=== PATIENT | female | born 1955 | race Caucasian/White ===

== ENCOUNTER 2025-01-06 09:07 | Outpatient (AMB) | payer BC, MEDICARE, MEDICAID, SELFPAY ==
--- OUTSIDE RECORDS SUMMARY | 2024-12-31 23:59 | XMS_ITS | Continuity of Care Document ---
Author Organization [facility] Address [address] [place] [address]- Support Name Relationship Address Phone COURTNEY, SUNDAY Personal Relationship Unknown Un available COURTNEY, SUNDAY Personal Relationship Unknown Un available COURTNEY, SUNDAY Personal Relationship Unknown Un available COURTNEY, SUNDAY Personal Relationship Unknown Un available COURTNEY, SUNDAY Personal Relationship Unknown Un available COURTNEY, SUNDAY Personal Relationship Unknown Un available COURTNEY, SUNDAY Personal Relationship Unknown Un available COURTNEY, SUNDAY Personal Relationship Unknown Un available COURTNEY, SUNDAY Personal Relationship Unknown Un available COURTNEY, SUNDAY Personal Relationship Unknown Un available COURTNEY, SUNDAY Personal Relationship Unknown Un available COURTNEY, SUNDAY Personal Relationship Unknown Un available COURTNEY, SUNDAY Personal Relationship Unknown Un available COURTNEY, SUNDAY Personal Relationship Unknown Un available COURTNEY, SUNDAY Personal Relationship Unknown Un available COURTNEY, SUNDAY Personal Relationship Unknown Un available COURTNEY, SUNDAY Personal Relationship Unknown Un available COURTNEY, SUNDAY Personal Relationship Unknown Un available COURTNEY, SUNDAY Personal Relationship Unknown Un available COURTNEY, SUNDAY Personal Relationship Unknown Un available COURTNEY, SUNDAY Personal Relationship Unknown Un available COURTNEY, SUNDAY Personal Relationship Unknown Un available COURTNEY, SUNDAY Personal Relationship Unknown Un available COURTNEY, SUNADY Personal Relationship Unknown Un available COURTNEY, SUNDAY Personal Relationship Unknown Un available COURTNEY, SUDNAY Personal Relationship Unknown Un available COURTNEY, SUNDAY Personal Relationship Unknown Un available COURTNEY, SUNDAY Personal Relationship Unknown Un available COURTNEY, SUNDAY Personal Relationship Unknown Un available COURTNEY, SUNDAY Personal Relationship Unknown Un available COURTNEY, SUNDAY Personal Relationship Unknown Un available COURTNEY, SUNDAY Personal Relationship Unknown Un available COURTNEY, AMANDA child Unknown Unavailabl e COURTNEY, SUNDAY Personal Relationship Unknown Un available COURTNEY, SUNDAY Personal Relationship Unknown Un available COURTNEY, SUNDAY Personal Relationship Unknown Un available COURTNEY, SUNDAY Personal Relationship Unknown Un available COURTNEY, SUNDAY Personal Relationship Unknown Un available COURTNEY, SUNDAY Personal Relationship Unknown Un available COURTNEY, SUNDAY Personal Relationship Unknown Un available COURTNEY, SUNDAY Personal Relationship Unknown Un available COURTNEY, SUNDAY Personal Relationship Unknown Un available COURTNEY, SUNDAY Personal Relationship Unknown Un available COURTNEY, SUNDAY Personal Relationship Unknown Un available COURTNEY, SUNDAY P Personal Relationship Unknown Unavailable COURTNEY, SUNDAY Personal Relationship Unknown Un available COURTNEY, SUNDAY Personal Relationship Unknown Un available COURTNEY, HALLIE child Unknown Unavailable COURTNEY, SUNDAY Personal Relationship Unknown Un available COURTNEY, SUNDAY Personal Relationship Unknown Un available COURTNEY, SUNDAY Personal Relationship Unknown Un available COURTNEY, SUNDAY Personal Relationship Unknown Un available COURTNEY, SUNDAY Personal Relationship Unknown Un available COURTNEY, SUNDAY Personal Relationship Unknown Un available COURTNEY, SUNDAY Personal Relationship Unknown Un available COURTNEY, SUNDAY Personal Relationship Unknown Un available COURTNEY, SUNDAY Personal Relationship Unknown Un available COURTNEY, SUNDAY Personal Relationship Unknown Un available COURTNEY, SUNDAY Personal Relationship Unknown Un available COURTNEY, SUNDAY Personal Relationship Unknown Un available COURTNEY, SUNDAY Personal Relationship Unknown Un available COURTNEY, SUNDAY Personal Relationship Unknown Un available COURTNEY, SUNDAY Personal Relationship Unknown Un available COURTNEY, SUNDAY Personal Relationship Unknown Un available COURTNEY, SUNDAY Personal Relationship Unknown Un available COURTNEY, SUNDAY Personal Relationship Unknown Un available COURTNEY, SUNDAY Personal Relationship Unknown Un available COURTNEY, SUNDAY Personal Relationship Unknown Un available COUTRNEY, SUNDAY Personal Relationship Unknown Un available COURTNEY, SUNDAY Personal Relationship Unknown Un available COURTNEY, SUNDAY Personal Relationship Unknown Un available PATIENT, STATES NONE Other Unknown Unavail able COURTNEY, SUNDAY Personal Relationship Unknown Un available PT STATES, NOONE Other Unknown Unavailable COURTNEY, SUNDAY Personal Relationship Unknown Un available COURTNEY, SUNDAY Personal Relationship Unknown Un available COURTNEY, SUNDAY Personal Relationship Unknown Un available COURTNEY, SUNDAY Personal Relationship Unknown Un available COURTNEY, SUNDAY Personal Relationship Unknown Un available COURTNEY, SUNDAY Personal Relationship Unknown Un available COURTNEY, SUNDAY spouse Unknown Unavailable COURTNEY, SUNDAY Personal Relationship Unknown Un available COURTNEY, SUNDAY Personal Relationship Unknown Un available COURTNEY, SUNDAY Personal Relationship Unknown Un available COURTNEY, SUNDAY Personal Relationship Unknown Un available COURTNEY, SUNDAY Personal Relationship Unknown Un available PT STATES, NONE Other Unknown Unavailable COURTNEY, SUNDAY Personal Relationship Unknown Un available COURTNEY, SUNDAY Personal Relationship Unknown Un available COURTNEY, SUNDAY Personal Relationship Unknown Un available COURTNEY, SUNDAY Personal Relationship Unknown Un available COURTNEY, SUNDAY Personal Relationship Unknown Un available COURTNEY, SUNDAY Personal Relationship Unknown Un available Care Team Providers Care International Project Manager Name Role Phone Jun DURON, Li Monroy Primary Care Physician [place] [facility] [place] 12/01/24 - 12/31/[address] [address]- Encounter Type: Triage Allergies, Adverse Reactions, Alerts Substance Criticality Severity Reaction Reaction Severity Status Diflucan Active Other Environmental Allergy Unable to assess criticality Persistent Mild Active levofloxacin Active Immunizations Given and Recorded Vaccine Date Status Refusal Reason SARS-CoV-2(COVID-19)mRNA-LNP vac([id number]) 10/15/24 Recorded SARS-CoV-2(COVID-19)mRNA-LNP vac([id number]) 03/04/24 Recorded SARS-CoV-2(COVID-19)mRNA-LNP vac([id number]) 10/04/23 Recorded influenza virus vaccine, inactivated 03/04/24 Rogers rded influenza virus vaccine, inactivated 03/15/23 Rogers rded influenza virus vaccine, inactivated 03/08/22 Rogers rded influenza virus vaccine, inactivated 02/16/21 Rogers rded influenza virus vaccine, inactivated 02/24/20 Rogers rded influenza virus vaccine, inactivated 02/25/19 Rogers rded influenza virus vaccine, inactivated 04/16/18 Rogers rded influenza virus vaccine, inactivated 02/21/17 Rogers rded influenza virus vaccine, inactivated 02/21/16 Orgers rded influenza virus vaccine, inactivated 03/31/15 Rogers rded influenza virus vaccine, inactivated 05/10/14 Rogers rded influenza virus vaccine, inactivated 03/27/13 Rogers rded RSV vaccine, preF A-preF B, recombinant 03/23/23 R ecorded pneumococcal 20-valent conjugate vaccine 02/05/23 Recorded tetanus/diphtheria/pertussis, acel(Tdap) 01/19/23 Recorded tetanus/diphtheria/pertussis, acel(Tdap) 02/05/13 Recorded [id number] 12y+ bivalent booster vax 01/19/23 Recorded [id number] 12y+ bivalent booster vax 03/18/22 Recorded SARS-CoV-2 mRNA ([id number]) vax 12/20/21 Recorded SARS-CoV-2 (COVID-19) mRNA BNT-162b2 vac 03/31/21 Recorded SARS-CoV-2 (COVID-19) mRNA BNT-162b2 vac 10/01/20 Recorded SARS-CoV-2 (COVID-19) mRNA BNT-162b2 vac 09/08/20 Recorded zoster vaccine, inactivated 06/01/20 Recorded zoster vaccine, inactivated 03/09/20 Recorded hepatitis B adult vaccine 09/01/19 Recorded hepatitis B adult vaccine 04/06/19 Recorded hepatitis B adult vaccine 03/02/19 Recorded pneumococcal 23-valent vaccine 10/15/13 Recorded Human Papillomavirus Vaccine 04/07/07 Given Influenza Inactive (IM) (oldterm) 1 05/08/06 Given 1Admin Note: PASTEUR Medications amLODIPine 10 mg oral tablet 1 tablet, By Mouth, Daily, # 90 tablet, 1 Refills, Maintenance, 07/17/24 9:52:00 AM EST, [facility], 165, cm, 05/13/24 14:55:00 EST, Height, 55.1, kg, 07/15/23 17:35:00 EST, Dry Weight Start Date: 07/17/24 Status: Ordered Quantity: 90.0 Unit: tablet Repeat number: 1 aspirin 81 mg oral tablet 1 tablet = 81 mg, By Mouth, Daily, 0 Refills, Maintenance, 05/24/11 11:32:43 AM EST Start Date: 05/24/11 Status: Ordered Repeat number: 1 Basaglar KwikPen 100 units/mL subcutaneous solution Subcutaneous Infusion, Daily, 0 Refills, Maintenance, 04/13/24 1:02:00 PM EDT, Partial fill upon patient request if the prescription is for a schedule II opioid drug. Start Date: 04/13/24 Status: Ordered Repeat number: 1 busPIRone 5 mg oral tablet See Instructions, TAKE ONE TABLET BY MOUTH TWICE A DAY, # 60 tablet, Refills 5, Tot. Refills 5, Maintenance, 11/30/24 2:30:00 PM EDT, Instructions Replace Required Details, Route to Pharmacy Electronically, [id number], 165, cm, 11/30/24 13:54:00 EDT, Height, 55.1, kg, 07/15/23 17:35:00 EST, Dry Weight Start Date: 11/30/24 Status: Ordered Quantity: 60.0 Unit: tablet Repeat number: 6 Cetirizine = 10 mg, Daily, 0 Refills, Maintenance, 08/01/22 11:22:00 AM EST, Partial fill upon patient request if the prescription is for a schedule II opioid drug. Start Date: 08/01/22 Status: Ordered Repeat number: 1 cilostazol 100 mg oral tablet 1 tablet = 100 mg, By Mouth, 2 times a day, 0 Refills, Maintenance, 05/06/23 1:20:00 PM EST, Partial fill upon patient request if the prescription is for a schedule II opioid drug. Start Date: 05/06/23 Status: Ordered Repeat number: 1 Ferrous Gluconate = 324 mg, By Mouth, 2 times a day, 0 Refills, Maintenance, 08/01/22 11:19:00 AM EST, Partial fill upon patient request if the prescription is for a schedule II opioid drug. Start Date: 08/01/22 Status: Ordered Repeat number: 1 Gvoke HypoPen 1 mg/0.2 mL subcutaneous solution = 1 mg, Subcutaneous Infusion, Once, 0 Refills, Maintenance, 05/06/23 1:21:00 PM EST, Partial fill upon patient request if the prescription is for a schedule II opioid drug. Start Date: 05/06/23 Status: Ordered Repeat number: 1 hydrOXYzine hydrochloride 25 mg oral tablet See Instructions, TAKE ONE TABLET BY MOUTH THREE TIMES A DAY, # 90 tablet, 1 Refills, Maintenance, 12/15/24 3:42:00 PM EDT, [facility], 165, cm, 11/30/24 13:54:00 EDT, Height, 55.1,kg, 07/15/23 17:35:00 EST, Dry Weight Start Date: 12/15/24 Status: Ordered Quantity: 90.0 Unit: tablet Repeat number: 1 hydrOXYzine hydrochloride 25 mg oral tablet 1 tablet, By Mouth, 3 times a day, # 90 tablet, 1 Refills, Maintenance, 09/21/24 1:26:00 PM EDT, [facility], 165, cm, 09/02/24 11:28:00 EDT, Height, 55.1, kg, 07/15/23 17:35:00 EST,Dry Weight Start Date: 09/21/24 Status: Ordered Quantity: 90.0 Unit: tablet Repeat number: 1 Lantus 100 u/ml subcutaneous solution 11 units, Subcutaneous Injection, Daily at bedtime, # 15 mL, 3 Refills, dispence 8 bottles Start Date: 01/07/08 Status: Ordered Quantity: 15.0 Unit: mL Repeat number: 4 Leflunomide By Mouth, Daily, 0 Refills, Maintenance, 12/06/20 11:39:00 AM EDT, Partial fill upon patient requestif the prescription is for a schedule II opioid drug. Start Date: 12/06/20 Status: Ordered Repeat number: 1 Lomotil 0.025 mg-2.5 mg oral tablet 2, tablet, By Mouth, 4 times a day, Refills 0, Maintenance, 05/06/23 1:20:00 PM EST, Partial fill upon patient request if the prescription is for a schedule II opioid drug. Start Date: 05/06/23 Status: Ordered Repeat number: 1 LORazepam 0.5 mg oral tablet See Instructions, TAKE ONE TABLET BY MOUTH EVERY 8 HOURS NEEDED FOR ANXIETY, # 60 tablet, 0 Refills, Maintenance, 12/14/24 4:21:00 PM EDT, [facility], 165, cm, 11/30/24 13:54:00 EDT, Height, 55.1, kg, 07/15/23 17:35:00 EST, Dry Weight Start Date: 12/14/24 Stop Date: 01/13/25 Status: Ordered Quantity: 60.0 Unit: tablet Repeat number: 1 LORazepam 0.5 mg oral tablet See Instructions, TAKE ONE TABLET BY MOUTH EVERY 8 HOURS NEEDED FOR ANXIETY, # 60 tablet, 0 Refills, Maintenance, 11/20/24 4:27:00 PM EDT, [facility], 165, cm, 10/19/24 13:10:00 EDT, Height, 55.1, kg, 07/15/23 17:35:00 EST, Dry Weight Start Date: 11/20/24 Stop Date: 12/21/24 Status: Ordered Quantity: 60.0 Unit: tablet Repeat number: 1 Metformin = 1,000 mg, By Mouth, 2 times a day, 0 Refills, Maintenance, 07/29/12 9:58:03 AM EST Start Date: 07/29/12 Status: Ordered Repeat number: 1 metoprolol 50 mg oral tablet 50 mg, 1, tablet, By Mouth, 2 times a day, Refills 0, Maintenance, 05/06/23 1:22:00 PM EST, Partialfill upon patient request if the prescription is for a schedule II opioid drug. Start Date: 05/06/23 Status: Ordered Repeat number: 1 montelukast 10 mg oral tablet 1, tablet, By Mouth, Daily in PM, # 90 tablet, Refills 1, Maintenance, 12/07/24 1:43:00 PM EDT, Route to Pharmacy Electronically, [id number], 165, cm, 11/30/24 13:54:00 EDT, Height,55.1, kg, 07/15/23 17:35:00 EST, Dry Weight Start Date: 12/07/24 Status: Ordered Quantity: 90.0 Unit: tablet Repeat number: 1 NovoLOG FlexPen 100 units/mL subcutaneous solution Subcutaneous Infusion, 3 times a day before meals, 0 Refills, Maintenance, 05/06/23 1:22:00 PM EST,Partial fill upon patient request if the prescription is for a schedule II opioid drug. Start Date: 05/06/23 Status: Ordered Repeat number: 1 One A Day Women's Complete By Mouth, Daily, 0 Refills, Maintenance, 01/31/24 8:18:00 AM EDT, Partial fill upon patient request if the prescription is for a schedule II opioid drug. Start Date: 01/31/24 Status: Ordered Repeat number: 1 Oxybutynin = 5 mg, By Mouth, Daily, 0 Refills, Maintenance, 05/06/23 1:22:00 PM EST, Partial fill upon patientrequest if the prescription is for a schedule II opioid drug. Start Date: 05/06/23 Status: Ordered Repeat number: 1 pantoprazole 40 mg oral delayed release tablet 1/2 tablet, 0 Refills, Maintenance, 12/06/20 11:41:00 AM EDT Start Date: 12/06/20 Status: Ordered Repeat number: 1 prazosin 1 mg oral capsule 1, capsule, By Mouth, 2 times a day, # 60 capsule, Refills 1, Maintenance, 11/23/24 6:09:00 AM EDT, Route to Pharmacy Electronically, [facility], 165, cm, 10/19/24 13:10:00 EDT, Height, 55.1, kg, 07/15/23 17:35:00 EST, Dry Weight Start Date: 11/23/24 Status: Ordered Quantity: 60.0 Unit: capsule Repeat number: 1 primidone 50 mg oral tablet See Instructions, 3 tablet By Mouth am & bedtime, and 100mg (2 tabs) in the afternoon. Total dosing 150mg/100mg/150mg, # 240 tablet, Refills 11, Tot. Refills 11, Maintenance, 02/07/24 3:30:00 PM EDT, Instructions Replace Required Details, Route to Pharmacy Electronically, [facility], 163, cm, 01/31/24 8:12:00 EDT, Height, 55.1, kg, 07/15/23 17:35:00 EST, Dry Weight Start Date: 02/07/24 Status: Ordered Quantity: 240.0 Unit: tablet Repeat number: 12 rosuvastatin 40 mg oral tablet 1 tablet, By Mouth, Daily, # 90 tablet, 1 Refills, Maintenance, 10/05/24 10:33:00 AM EDT, [facility], 165, cm, 09/02/24 11:28:00 EDT, Height, 55.1, kg, 07/15/23 17:35:00 EST, Dry Weight Start Date: 10/05/24 Status: Ordered Quantity: 90.0 Unit: tablet Repeat number: 1 traZODone 100 mg oral tablet 100 mg, 1, tablet, By Mouth, Daily at bedtime, # 90 tablet, Refills 1, Tot. Refills 1, Maintenance,12/15/24 12:47:00 PM EDT, Route to Pharmacy Electronically, [id number], Partial fill upon patient request if the prescription is for a schedule II opioid drug., 165, cm, 11/30/24 13:54:00 EDT, Height, 55.1, kg, 07/15/23 17:35:00 EST, Dry Weight Start Date: 12/15/24 Status: Ordered Quantity: 90.0 Unit: tablet Repeat number: 2 Trelegy Ellipta 200 mcg-62.5 mcg-25 mcg/inh inhalation powder 1 inhalation, Inhalation, Daily, at the same time every day, # 1 each, 6 Refills, Maintenance, 11/20/24 1:00:00 PM EDT, Powder, [facility], Partial fill upon patient request if the prescription is for a schedule II opioid drug., 1 inhalation Inhalation Daily,Instr:at the same timeevery day, 165, cm, 10/19/24 13:10:00 EDT, Height, 55.1, kg, 07/15/23 17:35:00 EST, Dry Weight Start Date: 11/20/24 Status: Ordered Quantity: 1.0 Unit: each Repeat number: 7 varenicline 1mg tablet 1 tablet, By Mouth, 2 times a day, # 56 tablet, 0 Refills, Maintenance, 12/31/24 11:18:00 AM EDT, [facility], 165, cm, 11/30/24 13:54:00 EDT, Height, 55.1, kg, 07/15/23 17:35:00 EST, Dry Weight Start Date: 12/31/24 Status: Ordered Quantity: 56.0 Unit: tablet Repeat number: 1 Vitamin B12 500 mcg oral tablet 1 tablet = 500 mcg, By Mouth, Daily, # 30 tablet, 6 Refills, Maintenance, 10/13/14 1:58:32 PM EDT, [facility] #[id number] Start Date: 10/13/14 Stop Date: 05/11/15 Status: Ordered Quantity: 30.0 Unit: tablet Repeat number: 7 Zetia 10 mg oral tablet 1 tablet = 10 mg, By Mouth, Daily, 0 Refills, Maintenance, 05/06/23 1:21:00 PM EST, Partial fill upon patient request if the prescription is for a schedule II opioid drug. Start Date: 05/06/23 Status: Ordered Repeat number: 1 Problem List Condition Confirmation Course Effective Dates Status H ealth Status Informant Aortic stenosis Confirmed Active Asthma - persistent Confirmed Active COPD with asthma Confirmed Active CAD (coronary artery disease) Confirmed Active Degeneration of lumbar intervertebral disc Confirmed Active History of diabetic ketoacidosis Confirmed Active History of benign carcinoid tumor Confirmed Active S/P insertion of iliac artery stent Confirmed Active History of pancreatitis Confirmed Active HLD (hyperlipidemia) Confirmed Active HTN (hypertension) Confirmed Active Memory changes Confirmed Active Major depressive disorder, recurrent episode, moderate Confirmed Active Obese class I Confirmed Active PAD (peripheral artery disease) Confirmed Active Post-traumatic stress disorder Confirmed Active PTSD (post-traumatic stress disorder) Confirmed Active Sleep apnea-possible Confirmed Active Smoking Confirmed Active Tobacco use Confirmed Active Mixed action and resting tremor Confirmed Active Type 2 diabetes mellitus with insulin therapy Confirmed Active Social History Social History Type Response Tobacco Use: 4 or less cigar ettes(less than 1/4 pack)/day in last 30 days. Other: Occasional cigarette about qod. Sex Sex Representation Female (finding) Patient Care team information Care Team Personnel Name: Li Barahona MD Position: [facility] Physician - Primary Care Member Role: PCP Address: [address] [place] [address] Telecom: Name: Jose Rojas MD Position: [facility] Cardiology MD Member Role: Lifetime Consulting Physician Address: [address] [place] [address] Telecom: Care Team Related Persons Name: AMANDA VALDEZ Name: SUNDAY VALDEZ Name: HALLIE VALDEZ Name: STATES, NONE Insurance Providers Guarantor name: ELIS VALDEZ Health Plan Information #: 1 Payer: [employer] PPO Payer Identifier: NA Member Number: [id number] Group Number: [id number] Subscriber Identifier: [id number] Relationship to Subscriber: spouse Coverage Type: NA Coverage Verification Date: NA Telecom: NA Address: Health Plan Information #: 2 Payer: MEDICARE B Payer Identifier: NA Member Number: [id number] Group Number: [id number] Subscriber Identifier: [id number] Relationship to Subscriber: self Coverage Type: NA Coverage Verification Date: KODY Telecom: NA Address: Health Plan Information #: 3 Payer: [employer] Payer Identifier: KODY Member Number: [id number] Group Number: [id number] Subscriber Identifier: [id number] Relationship to Subscriber: self Coverage Type: MEDICAID Coverage Verification Date: KODY Telecom: NA Address: NA
--- NOTE | 2025-01-06 09:14 | A.OFFVIS_ITS ---
Intake Visit Reasons: Mucinous appendiceal neoplasms Intake Note: Pt states, Dr. Orr referred me because an MRI showed tumors in my appendix. c/o left hip pain and right lower quadrant pain when she lays on that side. Oncology Rep Specialist Required: No Allergies levofloxacin (From Levaquin) Allergy (Mild, Verified 01/06/25 09:20) hypoglycemic fluconazole (From Diflucan) Allergy (Unknown, Verified 01/06/25 09:20) Unknown Medication List - Last Reviewed 01/06/25 by VÍCTOR Bustillo alprazolam 1 mg PO DAILY aspirin 81 mg PO DAILY cetirizine 10 mg PO DAILY cilostazol 100 mg PO BID diphenoxylate-atropine 2.5-0.025 mg 1 tab PO QID PRN ezetimibe 10 mg PO DAILY fluticasone furoate-vilanterol 50-25 mcg/dose (Breo Ellipta) inhalation gabapentin 300 mg PO TID hydrochlorothiazide 12.5 mg PO DAILY hydroxyzine HCl 50 mg PO BEDTIME leflunomide 20 mg PO DAILY lorazepam 0.5 mg PO Q8H PRN metoprolol succinate ER 50 mg PO DAILY montelukast 10 mg PO BEDTIME oxybutynin chloride 5 mg PO DAILY oxybutynin chloride ER 10 mg PO DAILY pantoprazole 40 mg PO DAILY primidone 50 mg PO BEDTIME primidone 50 mg PO BEDTIME rosuvastatin 40 mg PO DAILY trazodone 100 mg PO BEDTIME PRN umeclidinium 62.5 mcg/actuation (Incruse Ellipta) 1 inh inhalation DAILY HPI Comments Details: 69-year-old female patient presenting with a 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 The finding was incidentally noted during workup of back and hip pain. She reports several falls including a fall while walking her dog as well as a recent fall off a ladder. She has not experienced significant abdominal pain, nausea or vomiting. She also complains of painful cyst in the groin area which have been treated in the past [facility]. She was scheduled to see a surgeon in [facility] but missed her appointment. She has a history of peripheral vascular disease and underwent several stents in the right leg as well as balloon angioplasty. She presents today to discuss an urgent appendectomy to remove this mucinous appendiceal neoplasm. [facility] Medical History (Updated 01/06/25 @ 10:09 by Pal Boyle MD) Hypercholesteremia Diabetes Hypertension Carcinoid tumor of stomach Surgical History (Updated 01/06/25 @ 10:02 by Pal Boyle MD) History of bladder suspension procedure H/O neck surgery Hx of colonoscopy (07/31/18) Social History (Updated 01/06/25 @ 10:03 by Pal Boyle MD) Patient Tobacco Use Status: Current everyday Tobacco user Cigarettes Per Day: 15 Review of Systems Const All systems reviewed & are unremarkable except as noted in HPI and below Denies chills, Denies fever(s), Denies headache(s), Denies poor appetite and Denies weakness ENT Denies headache(s) Card Denies chest pain, Denies irregular heart rhythm, Denies palpitations and Denies dyspnea Resp Denies cough, Denies excessive phlegm production and Denies dyspnea GI Denies abdominal pain, Denies bloating, Denies change in bowel habits, Denies constipation, Denies heartburn, Denies diarrhea, Denies nausea and Denies vomiting Denies urinary frequency Musc Reports back pain, Denies muscle weakness and Denies numbness Skin/Breast Denies changing lesions and Denies unusual bruising Neuro Denies headache(s), Denies numbness, Denies paresthesias and Denies weakness Psych Denies anxiety and Denies depression Endo Denies palpitations Reji/Lymph Denies lymphadenopathy Physical Exam Const General: cooperative and no acute distress Nutritional Appearance: well nourished Orientation/consciousness: patient oriented x3 Limitations: no limitations HEENT Head: Yes normocephalic and Yes atraumatic Ears: hearing grossly normal bilaterally Resp Effort & Inspection: normal respiratory effort, no audible wheezes, Actively coughing and no respiratory distress Cardio Jugular venous distension: no JVD GI Inspection: Yes normal to inspection and No distended Palpation (GI): Soft to palpation, nontender, no guarding, not rigid and no masses Percussion: Yes normal to percussion Auscultation: normal bowel sounds Rectal Exam - Female: deferred Skin Other: Warm, dry, no rash Neuro General: patient oriented x3 Extrem General: Yes no clubbing, cyanosis or edema Results Reviewed Results Reviewed: MRI [facility] 12/20/2024: Assessment & Plan Assessment & Plan (1) Low grade mucinous neoplasm of appendix: Code(s): D37.3 - Neoplasm of uncertain behavior of appendix Category: Medical Plan 69-year-old female patient presenting with an incidentally noted mucinous appendiceal neoplasm noted on a pelvic MRI performed on 12/20/2024 in workup for back pain at [facility]. Patient has no significant abdominal symptoms at this time and examination reveals no tenderness or evidence of obstruction. I reviewed the findings in detail with the patient and the urgent need for appendectomy to prevent rupture of this mucinous neoplasm. I recommended a laparoscopic or possible open appendectomy as a short-stay surgery. After discussion of the procedure, risks, and alternatives, she consents to the laparoscopic or possible open appendectomy. 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 Coding Level of Care Code New Pt Level 4 (72483) Diagnoses Low grade mucinous neoplasm of appendix D37.3
--- OUTSIDE RECORDS SUMMARY | 2025-01-06 09:24 | XMS_ITS | Patient Health Record ---
Author Organization [facility] Address [address] [place] [address] Care Team Providers Care Bander And Cellophaner Machine Name Role Phone Li Barahona Primary Care Provider Rene Spivey Jr Unavailable [phone] Allergies Allergen (clinical drug ingredient) Drug/Non Drug Allergy documented on EMR Reaction Allergy Type Onset Date Status Levaquin HYPOGLYCEMIC Drug Allergy Acti ve fluconazole Diflucan Unknown Drug Allergy Activ e Reason For Referral No Information Medications Medication SIG (Take, Route, Frequency, Duration) Notes Start Date End Date Status Diphenoxylate-Atropine 2.5-0.025 MG TAKE ONE TABLET BY MOUTH FOUR TIMES A DAY NEEDED FOR DIARRHEA for 30 07/16/2024 Active traZODone HCl 100 MG 3 tablet at bedtime Orally 2 times a day Active Ezetimibe 10 MG 1 tablet Orally Once a day Active Pantoprazole Sodium 20 MG TAKE ONE TABLE T BY MOUTH TWICE A DAY for 30 Active ALPRAZolam 0.25 MG Oral for 28 Active Primidone 50 MG Oral for 90 Ac tive amLODIPine Besylate 10 MG 1 tablet Orall y Once a day for 30 day(s) Active Incruse Ellipta 62.5 MCG/ACT INHALE ONE PUFF BY MOUTH EVERY DAY Inhalation for 90 Active hydrOXYzine HCl 50 MG/ML as directed Intramuscular every 6 hrs Active Prazosin HCl 1 MG 1 capsule at bedtime Orally Once a day for 30 day(s) Active Varenicline Tartrate 1 MG TAKE 1MG BY MO UTH TWO TIMES A DAY Oral for 90 Active Chantix 0.5 MG 1 tablet after eatin g with a full glass of water Orally Once a day for 30 day(s) Active Cilostazol 100 MG 1 tablet 30 minutes before or 2 hours after breakfast and dinner Orally Twice a day for 30 day(s) Active Metoprolol Succinate 50 MG as directed Orally Active Metoprolol Succinate ER 50 MG TAKE ONE T ABLET BY MOUTH EVERY DAY Oral for 90 Active Pantoprazole Sodium 40 MG TAKE ONE TABLE T BY MOUTH EVERY DAY for 30 Active metFORMIN HCl 500 MG TAKE ONE TABLET BY MOUTH TWICE A DAY Oral for 90 Active NovoLOG FlexPen 100 UNIT/ML Subcutaneous for 55 Active oxyBUTYnin Chloride 10 MG as directed Orally Active oxyBUTYnin Chloride ER 10 MG TAKE 1 TABL ET BY MOUTH ONCE DAILY Oral for 90 Active Cetirizine HCl 10 MG 1 tablet Orally Onc e a day for 30 day(s) Active hydroCHLOROthiazide 25 MG Oral for 90 Active Losartan Potassium 50 MG 1 tablet Orally Once a day Active Basaglar KwikPen 100 UNIT/ML as directed Subcutaneous Active Combivent Respimat 20-100 MCG/ACT INHALE 1 PUFF BY MOUTH FOUR TIMES A DAY NEEDED Inhalation for 90 Active Rosuvastatin Calcium 40 MG 1 tablet Oral ly Once a day Active Leflunomide 20 MG 1 tablet Orally Once a day Active Vitamin D2 50 MCG (2000 UT) 1 tablet Ora lly One weekly Active Aspir-81 81 MG 1 tablet Orally Once a day Active Montelukast Sodium 10 MG 1 tablet Orally Once a day Active Ferrous Gluconate 324 (38 Fe ) MG 1 tablet with water or juice between meals Orally twice a day Active Immunizations Vaccine Route Administration Date Status Comme nts Influenza Unknown 04/17/2018 Administered Influenza Unknown 03/24/2019 Administered Influenza Unknown 03/02/2020 Administered Influenza Unknown 03/22/2021 Administered Influenza Unknown 05/15/2022 Administered Influenza Unknown 04/16/2023 Administered Social History Tobacco Use: Social History Observation Description Date Details (start date - stop date) Current Smoker NA - NA Tobacco Use/Smoking Question Answer Notes Patient is a current smoker How often do you smoke cigarettes? every day How many cigarettes a day do you smoke? 11-20 How soon after you wake up do you smoke your fir st cigarette? 31-60 minutes Are you interested in quitting? Not ready to marion t Alcohol Screen Question Answer Notes Did you have a drink containing alcohol in the p ast year? 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 [address] [place] [phone] 03/03/2024 Rene Orr Jr [facility] [address] [place] [phone] 04/03/2024 Rene Orr Jr [facility] [address] [place] [phone] 04/09/2024 Rene Orr Jr [facility] [address] [place] [phone] 12/31/2024 Rene Orr Jr Plan Of Treatment Pending Test Test Name Order Date LIVER PROFILE 10/07/2018 LIPASE 10/07/2018 CBC w DIFF 10/07/2018 CLOSTRIDIUM DIFF TOXIN A&B (C DIFF) 02/0 06/2015 STOOL WBC 06/12/2018 STOOL WBC 07/25/2015 CELIAC PANEL #10 10/07/2018 OVA & PARASITES (O&P) 06/12/2018 OVA & PARASITES (O&P) 07/25/2015 CULTURE, STOOL 06/12/2018 CULTURE, STOOL 07/25/2015 TSH REFLEX FREE T4 10/07/2018 Future Test Test Name Order Date COLONOSCOPY 03/06/2018 Insurance Providers Payer Name Payer Address Payer Phone Subscriber Number Group Number Insured Name Patient Relationship to Insured Coverage Start Date Coverage End Date [facility] [address] [place], [place] [phone] [id number] ELIS VALDEZ Self - patient is the insured MEDICARE OF [place] [address] [place] [address] [id number] YUSEF VALDEZHLEEN Self - patient is the insured MEDICAID OF [facility] [address] [place] [address] [phone] [id number] ELIS VALDEZ Self - patient is the insured Medical (General) History Medical History History ICD Code carcinoid tumor of the stomach diabetes mellitus elevated blood pressure GERD insomnia back problems COPD tremors EGD/colonoscopy, 07/31/18, [facility], endoscopy and biopsies fairly unremarkable. Repeat colonoscopy 10 years. depression hyperlipidemia Peripheral arterial disease ulcerative colitis Surgical History Surgery Date(Month/Year) Neck surgery Bladder suspension Multiple stent placements, lower extremi ties Hospitalization History Reason Date(Month/Year) hospitalization for ulcerative colitis
--- OUTSIDE RECORDS SUMMARY | 2025-01-06 09:24 | XMS_ITS | Encounter Summary ---
Author Organization [facility] Address [address] [place] [address] Care Team Providers Care Land Leveler Name Role Phone Unavailable Primary Care Provider Unavailabl e Encounter Details Date Type Department Care Team (Late st Contact Info) Description 07/10/2023 Abstract Jef [facility] [address] [place] [address] Slim Marr Jr., DMD [address] [place] [address] Social History Tobacco Use Types Packs/Day Years Used Date Smoking Tobacco: Never Assessed Comments Unknown Sex and Gender Information Value Date Recorded Sex Assigned at Not on file Legal Sex Female 5:35 PM EDT Gender Identity Not on file Sexual Orientation Not on file documented as of this encounter Plan of Treatment Not on file documented as of this encounter Visit Diagnoses Not on filedocumented in this encounter
== END 2025-01-06 09:51 | disposition home or self-care (01) ==
LOC: HO.HGS 09:08
PROVIDERS: PCP Family Medicine; Visit Provider Surgery
DX: D37.3 Neoplasm of uncertain behavior of appendix (principal)
CPT/HCPCS: 99204

== ENCOUNTER 2025-01-07 07:13 | Day surgery (SDC) | payer BC, MEDICARE, MEDICAID, SELFPAY ==
--- NOTE | 2025-01-06 14:07 | HO.ANESPROP2 ---
Documented by User: Toya Mason NP 01/06/25 14:13 HPI - Anesthesia Eval Consult details Narrative: 69yo Appendectomy Laparoscopic,possible open, BILATERL Excision Cyst X 2 on leg Case reviewed with LM and SG Follows [facility] for , Nonobstructive CAD - awaiting last office visit note Aortic stenosis: severe by area (0.8cm2), moderate by gradient Follows [facility] for COPD and TREY. Stable at 08/2024 office visit [facility] Active Problems Active Problems: All Active Problems Low grade mucinous neoplasm of appendix (Acute) History of bladder suspension procedure (Acute) Carcinoid tumor of stomach (Acute) History of abdominal surgery (Acute) Diabetes (Acute) Hypercholesteremia (Acute) Hypertension (Acute) Arthritis (Acute) COPD (chronic obstructive pulmonary disease) (Acute) Past Medical History Medical History CAD (coronary artery disease) Aortic stenosis Hypercholesteremia Diabetes Hypertension Carcinoid tumor of stomach Surgical History Surgical History History of bladder suspension procedure H/O neck surgery Hx of colonoscopy (07/31/18) Social History Social History Patient Tobacco Use Status: Current someday Tobacco user Tobacco use type: Cigarette Cigarettes Per Day: 10 Use of substances other than those prescribed or required for medical reasons: No Are you DNR?: No Advance Directives: No Advance Directives Information Provided: Yes Patient : No : No Poor oral hygiene: No Meds Allergies Allergy/AdvReac Type Severity Reaction Status Date / Time fluconazole (From Diflucan) Allergy Severe Rash Verified 01/07/25 08:10 levofloxacin (From Levaquin) Allergy Mild hypoglycemi Verified 01/06/25 09:20 c Home Medications ?Medication ?Instructions ?Recorded ?Confirmed ?Last Taken ?Type alprazolam 1 mg tablet 1 mg PO DAILY 01/06/25 Unknown History aspirin 81 mg tablet 81 mg PO DAILY 01/06/25 01/06/25 Unknown History cetirizine 10 mg tablet 10 mg PO DAILY 01/06/25 Unknown History cilostazol 100 mg tablet 100 mg PO BID 01/06/25 01/06/25 Unknown History diphenoxylate-atropine 2.5 1 tab PO QID PRN diarrhea 01/06/25 Unknown History mg-0.025 mg tablet ezetimibe 10 mg tablet 10 mg PO DAILY 01/06/25 Unknown History fluticasone furoate 50 inhalation 01/06/25 01/06/25 01/07/25 History mcg-vilanterol 25 mcg/dose inhalation powder (Breo Ellipta) gabapentin 300 mg capsule 300 mg PO TID 01/06/25 01/07/25 History hydrochlorothiazide 12.5 mg tablet 12.5 mg PO DAILY 01/06/25 01/06/25 Unknown History hydroxyzine HCl 50 mg tablet 50 mg PO BEDTIME 01/06/25 01/06/25 Unknown History leflunomide 20 mg tablet 20 mg PO DAILY 01/06/25 01/06/25 Unknown History lorazepam 0.5 mg tablet 0.5 mg PO Q8H PRN anxiety 01/06/25 Unknown History metoprolol succinate 50 mg 50 mg PO DAILY 01/06/25 01/06/25 01/07/25 History tablet,extended release 24 hr montelukast 10 mg tablet 10 mg PO BEDTIME 01/06/25 01/06/25 Unknown History oxybutynin chloride 10 mg 10 mg PO DAILY 01/06/25 Unknown History tablet,extended release 24 hr oxybutynin chloride 5 mg tablet 5 mg PO DAILY 01/06/25 01/06/25 Unknown History pantoprazole 40 mg tablet,delayed 40 mg PO DAILY 01/06/25 01/06/25 01/07/25 History release primidone 50 mg tablet 50 mg PO TID 01/06/25 01/06/25 01/07/25 History primidone 50 mg tablet 150 mg PO BEDTIME 01/06/25 01/06/25 Unknown History rosuvastatin 40 mg tablet 40 mg PO DAILY 01/06/25 01/06/25 Unknown History trazodone 100 mg tablet 100 mg PO BEDTIME PRN 01/06/25 01/06/25 Unknown History umeclidinium 62.5 mcg/actuation 1 inh inhalation DAILY 01/06/25 01/06/25 01/07/25 History blister powder for inhalation (Incruse Ellipta) amlodipine 10 mg tablet 10 mg PO DAILY 01/07/25 01/07/25 Unknown History fluticasone furoate 200 1 ea inhalation DAILY 01/07/25 01/07/25 01/07/25 History mcg-vilanterol 25 mcg/dose inhalation powder (Breo Ellipta) insulin glargine 100 unit/mL (3 0 - 30 unit subcut DAILY 01/07/25 01/07/25 01/06/25 History mL) subcutaneous pen (Basaglar KwikPen U-100 Insulin) insulin glargine-yfgn 100 unit/mL unit subcut 01/07/25 01/06/25 History (3 mL) subcutaneous pen Assessment and Plan Assessment Anesthesia Assessment: Chart Reviewed Documented by User: Speedy Sim MD 01/07/25 09:24 [facility] Past Medical History Medical History CAD (coronary artery disease) Aortic stenosis Hypercholesteremia Diabetes Hypertension Carcinoid tumor of stomach Functional capacity: independent ambulation Family History Family history of problems with anesthesia: No Surgical History Surgical History History of bladder suspension procedure H/O neck surgery Hx of colonoscopy (07/31/18) History of Problems with Anesthesia: No Social History Social History Patient Tobacco Use Status: Current someday Tobacco user Tobacco use type: Cigarette Cigarettes Per Day: 10 Use of substances other than those prescribed or required for medical reasons: No Are you DNR?: No Advance Directives: No Advance Directives Information Provided: Yes Patient : No : No Poor oral hygiene: No Meds Allergies Allergy/AdvReac Type Severity Reaction Status Date / Time fluconazole (From Diflucan) Allergy Severe Rash Verified 01/07/25 08:10 levofloxacin (From Levaquin) Allergy Mild hypoglycemi Verified 01/06/25 09:20 c Home Medications ?Medication ?Instructions ?Recorded ?Confirmed ?Last Taken ?Type alprazolam 1 mg tablet 1 mg PO DAILY 01/06/25 Unknown History aspirin 81 mg tablet 81 mg PO DAILY 01/06/25 01/06/25 Unknown History cetirizine 10 mg tablet 10 mg PO DAILY 01/06/25 Unknown History cilostazol 100 mg tablet 100 mg PO BID 01/06/25 01/06/25 Unknown History diphenoxylate-atropine 2.5 1 tab PO QID PRN diarrhea 01/06/25 Unknown History mg-0.025 mg tablet ezetimibe 10 mg tablet 10 mg PO DAILY 01/06/25 Unknown History fluticasone furoate 50 inhalation 01/06/25 01/06/25 01/07/25 History mcg-vilanterol 25 mcg/dose inhalation powder (Breo Ellipta) gabapentin 300 mg capsule 300 mg PO TID 01/06/25 01/07/25 History hydrochlorothiazide 12.5 mg tablet 12.5 mg PO DAILY 01/06/25 01/06/25 Unknown History hydroxyzine HCl 50 mg tablet 50 mg PO BEDTIME 01/06/25 01/06/25 Unknown History leflunomide 20 mg tablet 20 mg PO DAILY 01/06/25 01/06/25 Unknown History lorazepam 0.5 mg tablet 0.5 mg PO Q8H PRN anxiety 01/06/25 Unknown History metoprolol succinate 50 mg 50 mg PO DAILY 01/06/25 01/06/25 01/07/25 History tablet,extended release 24 hr montelukast 10 mg tablet 10 mg PO BEDTIME 01/06/25 01/06/25 Unknown History oxybutynin chloride 10 mg 10 mg PO DAILY 01/06/25 Unknown History tablet,extended release 24 hr oxybutynin chloride 5 mg tablet 5 mg PO DAILY 01/06/25 01/06/25 Unknown History pantoprazole 40 mg tablet,delayed 40 mg PO DAILY 01/06/25 01/06/25 01/07/25 History release primidone 50 mg tablet 50 mg PO TID 01/06/25 01/06/25 01/07/25 History primidone 50 mg tablet 150 mg PO BEDTIME 01/06/25 01/06/25 Unknown History rosuvastatin 40 mg tablet 40 mg PO DAILY 01/06/25 01/06/25 Unknown History trazodone 100 mg tablet 100 mg PO BEDTIME PRN 01/06/25 01/06/25 Unknown History umeclidinium 62.5 mcg/actuation 1 inh inhalation DAILY 01/06/25 01/06/25 01/07/25 History blister powder for inhalation (Incruse Ellipta) amlodipine 10 mg tablet 10 mg PO DAILY 01/07/25 01/07/25 Unknown History fluticasone furoate 200 1 ea inhalation DAILY 01/07/25 01/07/25 01/07/25 History mcg-vilanterol 25 mcg/dose inhalation powder (Breo Ellipta) insulin glargine 100 unit/mL (3 0 - 30 unit subcut DAILY 01/07/25 01/07/25 01/06/25 History mL) subcutaneous pen (Basaglar KwikPen U-100 Insulin) insulin glargine-yfgn 100 unit/mL unit subcut 01/07/25 01/06/25 History (3 mL) subcutaneous pen Exam Exam Date and Time: 01/07/2025 Narrative Narrative: patient has severe by echo.Moderate per gradients Airway TM Dist: >3cm Neck ROM: Full Loose/Missing/Broken Teeth: Upper (full upper denture) Heart: rrr Lungs: wheezes given an inhalation treatment Assessment and Plan Assessment Anesthesia Assessment: Anesthesia Plan Discussed and Smoking Cess. Discussed Final Anesthetic Review Family History of Problems with Anesthesia: No History of Problems with Anesthesia: No NPO: Yes ASA Class: III Final Preanesthetic Review: No Changes in Pt Med Stat, Meds/Allgs Chart Reviewed, Consent Obtained/Reviewed and Anes Risks/Benef Reviewed Patient Risk: Intermediate Procedure Risk: Intermediate Anesthetic Plan Anesthetic Plan: GA Disposition: Standard PACU
[2025-01-07] VITALS (11 sets, daily range): BP systolic 111–150; BP diastolic 43–52; PULSE 76–102; RESP 16–26; TEMP 36.1–37.1; O2SAT 92–98; BMI 30.5
--- NOTE | 2025-01-07 08:00 | ECG_ITS ---
Test Reason : preop Blood Pressure : */* mmHG Vent. Rate : 70 BPM Atrial Rate : 70 BPM P-R Int : 190 ms QRS Dur : 94 ms QT Int : 402 ms P-R-T Axes : 49 -14 46 degrees QTcB Int : 434 ms Normal sinus rhythm Moderate voltage criteria for LVH, may be normal variant ( R in aVL , [employer] product ) Septal infarct , age undetermined Abnormal ECG No previous ECGs available Referred By: Toya Masno Electronically Signed By: JAROCHO CHAMBERLAIN
[2025-01-07 08:36] LABS: MANUAL DIFF FLAG NO
[2025-01-07 08:37] LABS: Hematocrit 39.4 % (37.0-47.0); Hemoglobin 13.3 g/dl (12.0-16.0); Imm Gran Abs Auto 0.03 X10*3/uL (0.00-0.03); Imm Gran Pct Auto 0.4 % (0.0-0.4); Lymphocytes Absolute Auto 1.9 X10*3/uL (1.2-4.9); Mean Corpuscular HGB Conc 33.8 g/dl (31.0-35.0); Mean Corpuscular Hemoglobin 28.5 pg (27.0-33.0); Mean Corpuscular Volume 84.5 fL (80.0-98.0); NRBC Abs Auto 0.000 X10*3/uL (0.0-0.012); NRBC Pct Auto 0.0 /100WBC (0.0-0.2); Platelet Count 194 X10*3/uL (160-400); Red Blood Count 4.66 X10*6/uL (4.20-5.50); White Blood Count 8.2 X10*3/uL (4.8-10.8)
[2025-01-07 08:54] LABS: Anion Gap 13 (12-20); Blood Urea Nitrogen 18 mg/dL (9-16); Calcium 9.0 mg/dL (8.4-10.2); Carbon Dioxide 23 mmol/L (22-29); Chloride 111 mmol/L (96-108); Creatinine Clr Calc Pharmacy 51.9; Estimated Glomerular Filt Rate 49; Potassium 4.3 mmol/L (3.3-5.1); Sodium 143 mmol/L (135-145)
[2025-01-07] MEDS: Lactated Ringers 1,000 ML 100 ML IVCONT (09:02)
[2025-01-07] MEDS: Albuterol Sulfate (0.083%) 2.5 MG/3 ML VIAL.NEB INHALE (09:07)
--- NOTE | 2025-01-07 09:13 | MHC.SHP ---
Pre-Procedural Eval Section A - 24 Hr Update-Section A only Date of Service: 01/07/25 The patient is an INPATIENT: No Changes since office visit: Yes Patient answered all questions; No Cold of Flu in the past 2 weeks, No New Medical Problems and No Changes in Medication The patient has been examined within 24 hours of the surgical procedure. The History & Physical has been completed within 30 days and I have reviewed it.: Yes Section B - Complete if H&P > 30 days Chief Complaint: Neoplasm of uncertain behavior of appendix Allergies: Allergies Allergy/AdvReac Type Severity Reaction Status Date / Time fluconazole (From Diflucan) Allergy Severe Rash Verified 01/07/25 08:10 levofloxacin (From Levaquin) Allergy Mild hypoglycemi Verified 01/06/25 09:20 c Plan Diagnosis/Plan: Change I have reviewed the history and physical and performed a pertinent physical examination on my patient. The patient has also requested excision of a right groin cyst. She previously had a left groin cyst excised at [facility] and now is complaining of painful cyst on the right side. This will be added to the procedures day. I reviewed the procedure, risks and alternatives and she consents to excision of the right groin cyst in addition to the laparoscopic appendectomy, possible open. Time Spent With Patient Time: Total time managing care of this patient today ____ minutes.
--- NOTE | 2025-01-07 09:22 | PC.NURSE ---
multiple attempt patient and i to removed nose earring and unable to remove.
--- NOTE | 2025-01-07 09:38 | PC.NURSE ---
md bejarano aware of the attempt of trying to removed patients nose ring. unable. ok to proceed
--- NOTE | 2025-01-07 11:06 | P.OP_ITS ---
Operative Note Operative Note Date of Service: 01/07/25 Narrative: Preoperative diagnosis: Mucinous neoplasm of appendix, right groin infected cyst Postoperative diagnosis: Same Procedure: Laparoscopic appendectomy and partial cecectomy, incision and drainage of right groin infected cyst Surgeon: Pal Boyle MD Nurse General Duty: Smiley Briceño PA-C; Jefferson Mcarthur PA-C, Abhijit FRENCH, Mary Pritchett, MS-3; GILLIAN Izquierdo Anesthesia: General endotracheal Indications for procedure: 69-year-old female patient presenting with complaints of hip pain, status post MRI of the pelvis which revealed incidentally a mucinous neoplasm of the appendix. 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 Specimen: Appendix with base of cecum Estimated blood loss: Less than 2 mL Complications: None Procedure details: Patient was brought to the OR and placed in a supine position. After administering general anesthesia the patient's abdomen was prepped with ChloraPrep and draped in a sterile fashion. A surgical time-out was called and consent confirmed. Patient received preoperative antibiotics and Venodyne boots were in place. Local anesthesia consisting of 0.5% Sensorcaine was infiltrated in periumbilical region. A 5 mm incision was made below the umbilicus and carried down through subcutaneous tissue. A Veress needle was then inserted while elevating abdominal cavity with towel clips. After a positive drop test the abdomen was insufflated to a pressure of 15 mm of mercury. The Veress needle was removed and a 5 mm trocar inserted. The camera was then inserted in the abdomen explored. A 2nd 5 mm trocars placed in the lower midline. A 12 mm trocar was then placed in the left lower quadrant. The patient was then placed in a Trendelenburg position and rotated to the left. The appendix was identified in the right lower quadrant and brought up using blunt dissecting clamps. The appendix was noted to be markedly distended consistent with a mucinous neoplasm which extended to the base of the cecum. The mesentery of the appendix was then divided using the LigaSure. The appendiceal artery was cauterized and divided using the LigaSure. Dissection was continued down to include the base of the cecum. An Endo-TD stapler with a purple reload was then used to divide the appendix at the base with the cecum. The appendix was then placed in Endo-Catch bag and brought out through the left lower quadrant incision. The abdomen was then irrigated with saline solution and suctioned dry. Wounds were checked for hemostasis. CO2 was then evacuated from the abdominal cavity and all trocars removed. Fascia was closed in the left lower quadrant incision using a [id number] 0 Polysorb suture. Skin was closed at all incisions using a subcuticular 4-0 Polysorb suture. Steri-Strips 2 x 2 gauze and Tegaderm were then applied. Attention was then directed to the right groin. Patient was placed in a frog- leg position in the right groin prepped with Betadine and draped in a sterile fashion. Local anesthesia was infiltrated over the palpable abscess x2. An incision and drainage was performed in both infected cysts. A large purulence collection was drained from both sites. This was then irrigated and suctioned clean. No cyst could be identified. Findings were most consistent with a hidradenitis suppurativa. Wounds were packed with quarter-inch iodoform gauze and covered with dry sterile dressings. The patient tolerated the procedure well. Sponge, instrument, needle counts reported as correct. The patient was transferred to PACU in stable condition.
== END 2025-01-07 13:21 | disposition home or self-care (01) ==
PROVIDERS: PCP Pediatrics; Visit Provider Surgery
PROC: 0DTJ4ZZ Resection of Appendix, Percutaneous Endoscopic Approach (ICD-10-PCS; CPT 44970; principal; 2025-01-07 09:30)
PROC: (CPT 44970; 2025-01-07 09:30)
DX: D37.3 Neoplasm of uncertain behavior of appendix (principal); R10.31 Right lower quadrant pain; L02.214 Cutaneous abscess of groin; M25.552 Pain in left hip; I10 Essential (primary) hypertension; E78.00 Pure hypercholesterolemia, unspecified; E11.9 Type 2 diabetes mellitus without complications; Z79.51 Long term (current) use of inhaled steroids; Z79.82 Long term (current) use of aspirin; Z79.899 Other long term (current) drug therapy; Z88.1 Allergy status to other antibiotic agents; Z88.8 Allergy status to other drugs, medicaments and biological substances; Z98.890 Other specified postprocedural states; F17.210 Nicotine dependence, cigarettes, uncomplicated
CPT/HCPCS: 44970; 10061; 36415; 80048; 85025; 87070; 87205; 88304; 88305; 93005; J0131; J0330; J0360; J1100; J1171; J2003; J2250; J2371; J2405; J2704; J3010

== ENCOUNTER → 2025-01-07 07:13 | Outpatient (BNV) | payer BC, MEDICARE, MEDICAID, SELFPAY | PROVIDERS: PCP Pediatrics; Visit Provider Surgery | DX: D37.3 Neoplasm of uncertain behavior of appendix (principal) | CPT/HCPCS: 44204 ==

== ENCOUNTER → 2025-01-07 08:00 | Outpatient (BNV) | payer BC, MEDICARE, MEDICAID, SELFPAY | PROVIDERS: PCP Pediatrics; Visit Provider Internal Medicine | DX: Z01.810 Encounter for preprocedural cardiovascular examination (principal) | CPT/HCPCS: 93010 ==

== ENCOUNTER 2025-01-14 09:52 | Outpatient (AMB) | payer BC, MEDICARE, MEDICAID, SELFPAY ==
--- OUTSIDE RECORDS SUMMARY | 2023-09-09 05:40 | XMS_ITS ---
Author Organization [facility] Address [address] [place] [id number] Care Team Providers Care Plate Washer Name Role Phone Li Barahona Primary Care Provider Rene Spivey Jr [phone] REASON FOR VISIT patient presents today for gerd Encounters Encounter Location Date Provider Diagnosis [facility] [address] [place] [id number] 09/09/2023 Rene Orr Jr Plan Of Treatment No Information Progress Notes * ELIS VALDEZDOB:1954 (69 yo F)Acc No.[id number]:09/09/2023 Progress Notes Patient: ELIS HOWELL Provider: Angelina Orr MD :1955 A ge:68 Y S ex:Female Date:09/09/2023 Address:[place] [address] Pcp:Li Barahona Subjective: * Chief Complaints: * 1 . Patient presents today for gerd. * Medical History: Objective: * Vitals: Assessment: Plan: * Treatment: * * The named appointment provid er may or may not be the originator of this progress note, and it is not deemed complete until electronically signed by the appointment provider. Sign off status: Pending * Provider: Angelina Orr MD Date: 0 09/09/2023 Generated for Printi ng/Faxing/eTransmitting on: 0 01/14/2025 10:35 AM EDT
--- NOTE | 2025-01-14 10:08 | MHC.OFFVIS ---
Vital Signs 01/14/25 10:14 Height 5 ft 5 in Weight 182 lb BMI 30.3 BP 137/64 Blood Pressure Location Lt brachial Position Sitting Intake Visit Reasons: post appendectomy Intake Note: Patient is seen in office for post op assessment post laparoscopic appendectomy and partial cecectomy, incision and drainage of right groin infected cyst. Pt c/o: admits to sore, tender, bruise, bloated, denies n/v/d/c surgery:01/07/25 Consumer Product Advisor Required: No Accompanied by: Self / Same As Patient Allergies fluconazole (From Diflucan) Allergy (Severe, Verified 01/14/25 10:13) Rash levofloxacin (From Levaquin) Allergy (Mild, Verified 01/14/25 10:13) hypoglycemic HPI Comments Details: 69-year-old female patient returning 1 week following elective laparoscopic appendectomy on 01/07/2025 pathology revealed a low-grade mucinous neoplasm. Tumor was confined to the muscularis propria in the proximal and radial margins were negative for tumor. A segment of the cecum was removed and found to be partially involved with tumor, pTis (LAMN) NX. She also underwent incision and drainage of a groin abscess x2. She feels much improved from the groin infection but does have some soreness in the left lower quadrant trocar incision. [facility] Medical History CAD (coronary artery disease) Aortic stenosis Hypercholesteremia Diabetes Hypertension Carcinoid tumor of stomach Surgical History History of laparoscopic appendectomy (01/07/25) History of bladder suspension procedure H/O neck surgery Hx of colonoscopy (07/31/18) Social History Patient Tobacco Use Status: Current someday Tobacco user Tobacco use type: Cigarette Cigarettes Per Day: 10 Review of Systems Const All systems reviewed & are unremarkable except as noted in HPI and below Physical Exam Vital Signs: Last Vital Signs BP 137/64 01/14/25 10:14 BMI result Body Mass Index 30.3 Const General: no acute distress Nutritional Appearance: well nourished Orientation/consciousness: patient oriented x3 Limitations: no limitations Resp Effort & Inspection: normal respiratory effort GI Other: Trocar incisions are clean, dry, and intact without redness or discharge Skin Other: Warm, dry, no rash Neuro General: patient oriented x3 Extrem Other: No edema Assessment & Plan Assessment & Plan (1) Low grade mucinous neoplasm of appendix: Code(s): D37.3 - Neoplasm of uncertain behavior of appendix Category: Medical Plan Patient was informed of the pathology results and a copy of the report provided for her records. She tolerated the procedure well and her wounds are healing nicely. No further surgical intervention is required at this time although I do recommend follow-up scanning approximately 6 months. She will return in 1 month for follow-up examination. Orders: Orders CT abdomen pelvis w IV con 6 Months D37.3 - Neoplasm of uncertain behavior of appendix Coding Level of Care Code Global (23001) Diagnoses Low grade mucinous neoplasm of appendix D37.3
[2025-01-14 10:14] VITALS: BP 137/64; BMI 30.3
--- OUTSIDE RECORDS SUMMARY | 2025-01-14 10:35 | XMS_ITS | Encounter Summary ---
Author Organization [facility] Address [address] [facility] 7t [place] [address] Care Team Providers Care Artificial Flowers Supervisor Name Role Phone Unavailable Primary Care Provider Unavailabl e Encounter Details Date Type Department Care Team (Late st Contact Info) Description 07/10/2023 Abstract Jef [facility] [address] [place] [address] Slim Marr Jr., DMD [address] [place] [address] Social History Tobacco Use Types Packs/Day Years [...]
--- OUTSIDE RECORDS SUMMARY | 2025-01-14 10:35 | XMS_ITS | Encounter Summary ---
Author Organization [facility] Address [address] [place] [address] Phone Care Team Providers Care Twister Operator Name Role Phone Kody Altman MD Unavailable + Sumeet Resendiz MD Unavailable [phone] Arturo Mccoy MAINTENANCE GROUNDMAN Unavailable pwit Abdi Bhandari MD Unavailable Toan Walden MD Unavailable Checo Veloz MD Unavailable Checo Viramontes DO Unavailable [phone] Jose Oliver MD Unavailable [phone] Gucci Ma MD Unavailable Jaimee Kemp DPM Unavailable Unavailable Yaniv Abdullahi CONTACT ASSEMBLER Unavailable Richa Dejesus PA-C Unavailable [phone] Lore Turner CONTACT ASSEMBLER Unavailable Jose Rojas MD Unavailable [phone] Koyd Altman MD Primary Care Prov ider Vianey Pruitt CONTACT ASSEMBLER Primary Care Provider Li Barahona MD Primary Care Provid er Encounter Details Date Type Department Care Team (Late st Contact Info) Description 07/31/2018 Procedure Pass [facility] Admitting Dept Virtual Department [address] [place] [address] Social History Tobacco Use Types Packs/Day Years Used Date Smoking Tobacco: Every Day Cigarettes Smokeless Tobacco: Never Alcohol Use Standard Drinks/Week Comments No 0 (1 standard drink = 0.6 oz pur e alcohol) Comments Unknown Sex and Gender Information Value Date Recorded Sex Assigned at Female 11/29/2017 1:36 PM EDT Legal Sex Female 6:59 PM EST Gender Identity Female 11/29/2017 1:36 PM EDT Sexual Orientation Straight 07/15/2019 6: 58 PM EST documented as of this encounter Plan of Treatment Upcoming Encounters Date Type Department Care Team (Late st Contact Info) Description 10/05/2024 Procedure Pass [facility] [place] [address] [place] [address] 02/03/2025 3:00 PM EDT Procedure visit [facility] [address] [place] [address] Sonido Christian, MAINTENANCE GROUNDMAN [address] [facility], 2nd [place] [address] 03/11/2025 1:50 PM EDT Office Visit [facility] [address] [place] [address] Elaine Tony CNP [address] [facility], 1st [place] [address] 03/17/2025 2:00 PM EDT Office Visit [facility] [address] [place] [address] Christie Robles MD [address] [facility], [address] [place] [address] [email or web address] 04/07/2025 1:30 PM EDT Office Visit [facility] [address], [address] [place] [address] Diane Dean, MAINTENANCE GROUNDMAN [address] [place] [address] 06/14/2025 1:00 PM EST Nutrition [facility] [address] [place] [address] Mihcelle Spaulding, WENDY [address] [place] [address], [address] [place] [address] 09/16/2025 12:30 PM EDT Appointment [facility] [address] [place] [address] Diane Dean, MAINTENANCE GROUNDMAN [address] [place] [address] 09/16/2025 2:00 PM EDT Appointment [facility] [address] [place] [address] Diane Dean, MAINTENANCE GROUNDMAN [address] [place] [address] 09/16/2025 3:00 PM EDT Appointment [facility] [address] [place] [address] Diane Dean, MAINTENANCE GROUNDMAN [address] [place] [address] 10/01/2025 1:20 PM EDT Office Visit [facility] [address] [place] [address] [place] [address], [address] [place] [address] Toan Walden MD [address] [place] [address], [address] [address] documented as of this encounter Visit Diagnoses Not on filedocumented in this encounter Care Teams Twister Operator Relationship Specialty Start Date End Date Kody Altman MD [address] [place] [address] [email or web address] PCP - General Family Medicine 07/18/17 02/01/21 Vianey Pruitt, YURI [address] [place] [address] PCP - General 02/02/21 09/25/23 Li Barahona MD [address] [place] [address] PCP - General Internal Medicine 09/26/23 Kody Altman MD [address] [place] [address] [email or web address] Historical LMR Provider 04/14/17 07/01/21 Sumeet Resendiz MD [address] [place] [address] Historical LMR Provider 04/14/17 2 Arturo Mccoy CNP [address] [place] [address] [email or web address] Historical LMR Provider 04/14/1707/01/21 Abdi Bhandari MD [address] [place] [address] Historical LMR Provider 04/14/17 07/01/21 Toan Walden MD [address] [place] [address] [place] [address] [email or web address] Historical LMR Provider 04/14/17 Checo Veloz MD [address] [place] [address] Historical LMR Provider 04/14/17 Checo Viramontes DO [address] [place] [address] [facility], [place] [address] Historical LMR Provider 04/14/17 07/01/21 Jose Oliver MD [address] [place] [address], 2nd [place] [address] [email or web address] Historical LMR Provider 04/14/17 07/01/21 Gucci Ma MD [address] [place] [address] [address] [place] [address] Historical LMR Provider 04/14/17 Jaimee Kemp DPM [address] [place] [address] Historical LMR Provider 04/14/1707/01/21 Yaniv Abdullahi, YURI [address] [place] [address] [address] [place] [phone] Historical LMR Provider 04/14/17 2 Richa Dejesus PA-C [address] [place] [address] [facility], [facility] [place] [address] Historical LMR Provider 04/14/17 07/01/21 Lore Turner NP [address] [place] [address] Historical LMR Provider 04/14/17 2 Jose Rojas MD [address] [place] [address] [email or web address] Historical LMR Provider 04/14/17 documented as of this encounter Additional Source Comments The information contained in this document represents components of the legal health record. It is not the complete legal health record.[facility]
== END 2025-01-14 10:26 | disposition home or self-care (01) ==
PROVIDERS: PCP Pediatrics; Visit Provider Surgery
DX: D37.3 Neoplasm of uncertain behavior of appendix (principal)
CPT/HCPCS: 99024

== ENCOUNTER 2025-02-11 14:01 | Outpatient (AMB) | payer BC, MEDICARE, MEDICAID, SELFPAY ==
--- OUTSIDE RECORDS SUMMARY | 2023-09-09 05:40 | XMS_ITS ---
Author Organization [facility] Address [address] [place] [phone] Care Team Providers Care Jig Grinder Set Up Operator Name Role Phone Li Barahona Primary Care Provider Rene Spivey Jr [phone] REASON FOR VISIT patient presents today for gerd Encounters Encounter Location Date Provider Diagnosis [facility] [address] [place] [phone] 09/09/2023 Rene Orr Jr Plan Of Treatment No Information Progress Notes * ELIS VALDEZDOB:1954 (69 yo F)Acc No.[id number]:09/09/2023 Progress Notes Patient: ELIS HOWELL Provider: Angelina Orr MD :1955 A ge:68 Y S ex:Female Date:09/09/2023 Address:[place] [address] Pcp:Li Barahona Subjective: * Chief Complaints: * [...] 09/09/2023 Generated for Printi ng/Faxing/eTransmitting on: 0 02/11/2025 02:09 PM EDT
--- OUTSIDE RECORDS SUMMARY | 2025-02-08 23:59 | XMS_ITS | Continuity of Care Document ---
Author Organization [facility] Address [address] [place] [address]- Support Name Relationship Address Phone COURTNEY, SUNDAY Personal Relationship Unknown Un available COURTNEY, SUNDAY Personal Relationship Unknown Un available COURTNEY, SUNDAY Personal Relationship Unknown Un available COURTNEY, SUNDAY Personal Relationship Unknown Un available COURTNEY, SUNDAY Personal Relationship Unknown Un available COURTNEY, SUNDAY Personal Relationship Unknown Un available COURTNEY, SUNDYA Personal Relationship Unknown Un available COURTNEY, SUNDAY [...] Unknown Un available Care Team Providers Care Backshoe Person Name Role Phone Jun DURON, Li Monroy Primary Care Physician Encounter [facility] Date(s): 02/01/25 - 02/08/[address] [address] Encounter Diagnosis Major depressive disorder, recurrent episode, moderate(Discharge Diagnosis) - 02/01/25 Low grade mucinous neoplasm of appendix(Discharge Diagnosis) - 02/01/25 Attending Physician: Li Barahona MD Encounter Type: Office Visit Allergies, Adverse Reactions, Alerts Substance Criticality Severity Reaction Reaction Severity Status levofloxacin Active Diflucan Active Other Environmental Allergy Unable to assess criticality Persistent Mild Active Immunizations Given and Recorded Vaccine Date Status Refusal Reason SARS-CoV-2(COVID-19)mRNA-LNP vac([id number]) 10/15/24 Recorded SARS-CoV-2(COVID-19)mRNA-LNP vac([id number]) 03/04/24 Recorded SARS-CoV-2(COVID-19)mRNA-LNP vac(lix407) 10/04/23 Recorded influenza virus vaccine, inactivated 03/04/24 Rogers rded influenza virus vaccine, inactivated 03/15/23 Rogers rded influenza virus vaccine, inactivated 03/08/22 Rogers rded influenza virus vaccine, inactivated 02/16/21 Rogers rded influenza virus vaccine, inactivated 02/24/20 Rogers rded influenza virus vaccine, inactivated 02/25/19 Rogers rded influenza virus vaccine, inactivated 04/16/18 Rogers rded influenza virus vaccine, inactivated 02/21/17 Rogers rded influenza virus vaccine, inactivated 02/21/16 Rogers rded influenza virus vaccine, inactivated 03/31/15 Rogers rded influenza virus vaccine, inactivated 05/10/14 Rogers rded influenza virus vaccine, inactivated 03/27/13 Rogers rded RSV vaccine, preF A-preF B, recombinant 03/23/23 R ecorded pneumococcal 20-valent conjugate vaccine 02/05/23 Recorded tetanus/diphtheria/pertussis, acel(Tdap) 01/19/23 Recorded tetanus/diphtheria/pertussis, acel(Tdap) 02/05/13 Recorded [id number] 12y+ bivalent booster vax 01/19/23 Recorded [id number] 12y+ bivalent booster vax 03/18/22 Recorded SARS-CoV-2 mRNA ([id number]) vax 12/20/21 Recorded SARS-CoV-2 (COVID-19) mRNA BNT-162b2 [...] Daily, # 90 tablet, 1 Refills, Maintenance, 01/23/25 3:02:00 PM EDT, [id number], 165, cm, 11/30/24 13:54:00 EDT, Height, 55.1, kg, 07/15/23 17:35:00 EST, Dry Weight Start Date: 01/23/25 Status: Ordered Quantity: 90.0 Unit: tablet Repeat number: 1 aspirin 81 mg oral tablet 1 tablet = 81 mg, By Mouth, Daily, 0 Refills, Maintenance, 05/24/11 11:32:43 AM EST Start Date: 05/24/11 Status: Ordered Repeat number: 1 Basaglsatish MedranoPen 100 units/mL subcutaneous solution Subcutaneous Infusion, Daily, 0 Refills, Maintenance, 04/13/24 1:02:00 PM EDT, Partial fill upon patient request if the prescription is for a schedule II opioid drug. Start Date: 04/13/24 Status: Ordered Repeat number: 1 cetirizine 10 mg oral tablet = 10 mg, By Mouth, Daily, # 90 tablet, 0 Refills, Maintenance, 01/26/25 3:34:00 PM EDT, Tablet, [id number], Partial fill upon patient request if the prescription is for a schedule IIopioid drug., 165, cm, 11/30/24 13:54:00 EDT, Height, 55.1, kg, 07/15/23 17:35:00 EST, Dry Weight Start Date: 01/26/25 Stop Date: 04/26/25 Status: Ordered Quantity: 90.0 Unit: tablet Repeat number: 1 cilostazol 100 mg oral tablet 1 tablet = 100 mg, By Mouth, 2 times a day, 0 Refills, Maintenance, 05/06/23 1:20:00 PM EST, Partial fill upon patient request if the prescription is for a schedule II opioid drug. Start Date: 05/06/23 Status: Ordered Repeat number: 1 ferrous gluconate 324 mg oral tablet = 324 mg, By Mouth, Daily, for 90 days, # 100 tablet, 0 Refills, Acute 04/26/25 3:33:00 PM EST, 01/26/25 3:33:00 PM EDT, Tablet, [id number], Partial fill upon patient request if the prescription is for a schedule II opioid drug., 165, cm, 11/30/24 13:54:00 EDT, Height, 55.1, kg, 07/15/23 17:35:00 EST, Dry Weight Start Date: 01/26/25 Stop Date: 04/26/25 Status: Ordered Quantity: 100.0 Unit: tablet Repeat number: 1 Gvoke HypoPen 1 mg/0.2 [...] DAY, # 90 tablet, 1 Refills, Maintenance, 01/01/25 5:31:00 PM EDT, [id number], 165, cm, 11/30/24 13:54:00 EDT, Height, 55.1,kg, 07/15/23 17:35:00 EST, Dry Weight Start Date: 01/01/25 Status: Ordered Quantity: 90.0 Unit: tablet Repeat number: 1 hydrOXYzine hydrochloride 25 mg oral tablet 1 tablet, By Mouth, 3 times a day, # 90 tablet, 1 Refills, Maintenance, 09/21/24 1:26:00 PM EDT, [id number], 165, cm, 09/02/24 11:28:00 EDT, [...] Date: 05/06/23 Status: Ordered Repeat number: 1 Metformin = 1,000 mg, [...] 1:43:00 PM EDT, Route to Pharmacy Electronically, [id number], 165, cm, 11/30/24 13:54:00 EDT, Height,55.1, kg, [...] 6:09:00 AM EDT, Route to Pharmacy Electronically, [id number], 148, cm, 10/19/24 13:10:00 EDT, Height, 55.1, kg, [...] Replace Required Details, Route to Pharmacy Electronically, [id number], 163, cm, 01/31/24 8:12:00 EDT, Height, 55.1, kg, 07/15/23 17:35:00 EST, Dry Weight Start Date: 02/07/24 Status: Ordered Quantity: 240.0 Unit: tablet Repeat number: 12 rosuvastatin 40 mg oral tablet 1 tablet, By Mouth, Daily, # 90 tablet, 1 Refills, Maintenance, 10/05/24 10:33:00 AM EDT, [id number], 165, cm, 09/02/24 11:28:00 EDT, Height, 55.1, kg, 07/15/23 17:35:00 EST, Dry Weight Start Date: 10/05/24 Status: Ordered Quantity: 90.0 Unit: tablet Repeat number: 1 traZODone 100 mg oral tablet 100 mg, 1, tablet, By Mouth, Daily at bedtime, # 90 tablet, Refills 1, Tot. Refills 1, Maintenance,12/15/24 12:47:00 PM EDT, Route to Pharmacy Electronically, [id number], Partial fill upon patient request [...] 6 Refills, Maintenance, 11/20/24 1:00:00 PM EDT, [facility], [id number], Partial fill upon patient request if the prescription is for a schedule II opioid drug., 1 inhalation Inhalation Daily,Instr:at the same timeevery day, 165, cm, 10/19/24 13:10:00 EDT, Height, 55.1, kg, 07/15/23 17:35:00 EST, Dry Weight Start Date: 11/20/24 Status: Ordered Quantity: 1.0 Unit: each Repeat number: 7 varenicline 1mg tablet See Instructions, TAKE ONE TABLET BY MOUTH TWICE A DAY, # 56 tablet, 0 Refills, Maintenance, :34:00 PM EDT, [id number], 165, cm, 11/30/24 13:54:00 EDT, Height, 55.1, kg, 07/15/23 17:35:00 EST, Dry Weight Start Date: 01/26/25 Status: Ordered Quantity: 56.0 Unit: tablet Repeat number: 1 Vitamin B12 500 mcg oral tablet 1 tablet = 500 mcg, By Mouth, Daily, # 30 tablet, 6 Refills, Maintenance, 10/13/14 1:58:32 PM EDT, [facility]/pharmacy #[id number] Start Date: 10/13/14 Stop Date: [...] (hyperlipidemia) Confirmed Active HTN (hypertension) Confirmed Active Low grade mucinous neoplasm of appendix Confirmed Active Memory changes Confirmed Active Major depressive disorder, recurrent episode, moderate Confirmed Active Obese class I Confirmed Active PAD (peripheral artery disease) Confirmed Active Post-traumatic stress disorder Confirmed Active PTSD (post-traumatic stress disorder) Confirmed Active Sleep apnea-possible Confirmed Active Smoking Confirmed Active Tobacco use Confirmed Active Mixed action and resting tremor Confirmed Active Type 2 diabetes mellitus with insulin therapy Confirmed Active Diagnosis Diagnosis Type Effective Dates Health Status Clinical Service Informant Major depressive disorder, recurrent episode, moderate Discharge Diagnosis 02/01/25 Low grade mucinous neoplasm of appendix Discharge Diagnosis 02/01/25 Social History Social History Type Response Tobacco Use: 4 or less cigar ettes(less than 1/4 pack)/day in last 30 days. Other: Occasional cigarette about qod. Sex Sex Representation Female (finding) Patient Care team information Care Team Personnel Name: Li Barahona MD Position: [facility] Physician - Primary Care Member Role: PCP Address: [address] [place] [address] Telecom: Name: Jose Rojas MD Position: [facility] Cardiology MD Member Role: [employer] Physician Address: [address] [place] [address] [place], [place] [address] Telecom: Care Team Related Persons Name: AMANDA VALDEZ Name: SUNDAY VALDEZ Name: HALLIE VALDEZ Name: STATES, NONE Insurance Providers Guarantor name: ELIS COURTNEY Health Plan Information #: 1 Payer: [employer] [facility] Payer Identifier: Member Number: [id number] Group Number: [id number] Subscriber Identifier: [id number] Relationship to Subscriber: spouse Coverage Type: NA Coverage Verification Date: NA Telecom: NA Address: Health Plan Information #: 2 Payer: MEDICARE B Payer Identifier: Member Number: [id number] Group Number: Subscriber Identifier: [id number] Relationship to Subscriber: self Coverage Type: NA Coverage Verification Date: NA Telecom: NA Address: Health Plan Information #: 3 Payer: [employer] Payer Identifier: NA Member Number: [id number] Group Number: Subscriber Identifier: [id number] Relationship to Subscriber: self Coverage Type: MEDICAID Coverage Verification Date: Telecom: Address:
--- NOTE | 2025-02-11 14:02 | A.OFFVIS_ITS ---
Vital Signs 02/11/25 14:08 Height 5 ft 5 in Weight 180 lb BMI 30.0 BP 152/65 H Blood Pressure Location Rt brachial Position Sitting Pulse 89 Intake Visit Reasons: 1mo post appendectomy Intake Note: Patient here for 1mo s/p assessment post laparoscopic appendectomy. Patient c/o: reports incisions healing well. Denies pain, oozing, tenderness. Surgery: 01-07-2025 Autopsy Assistant Required: No Accompanied by: Self / Same As Patient Allergies fluconazole (From Diflucan) Allergy (Severe, Verified 02/11/25 14:08) Rash levofloxacin (From Levaquin) Allergy (Mild, Verified 02/11/25 14:08) hypoglycemic HPI Comments Details: 69-year-old female patient returning 1 month following elective laparoscopic appendectomy on 01/07/2025 pathology revealed a low-grade mucinous neoplasm. Tumor was confined to the muscularis propria in the proximal and radial margins were negative for tumor. A segment of the cecum was removed and found to be partially involved with tumor, pTis (LAMN) NX. She also underwent incision and drainage of a groin abscess x2. Since her last visit she underwent excision of a cyst in the right groin at Dr. Lopez's office. She reports still feeling a lump in this location and we will be calling her office for follow-up. She denies any abdominal pain but does report diarrhea for she was going to be seeing Dr. Orr once again. She was scheduled for a follow-up CT abdomen and pelvis in June [facility]25 [facility] Medical History CAD (coronary artery disease) Aortic stenosis Hypercholesteremia Diabetes Hypertension Carcinoid tumor of stomach Surgical History History of laparoscopic appendectomy (01/07/25) History of bladder suspension procedure H/O neck surgery Hx of colonoscopy (07/31/18) Social History Patient Tobacco Use Status: Current someday Tobacco user Tobacco use type: Cigarette Cigarettes Per Day: 10 Review of Systems Const All systems reviewed & are unremarkable except as noted in HPI and below Physical Exam Vital Signs: Last Vital Signs Pulse 89 02/11/25 14:08 BP 152/65 H 02/11/25 14:08 BMI result Body Mass Index 30.0 Const General: no acute distress Nutritional Appearance: well nourished Orientation/consciousness: patient oriented x3 Limitations: no limitations Resp Effort & Inspection: normal respiratory effort GI Other: Trocar incisions are clean, dry, and intact without redness or discharge Skin Other: Warm, dry, no rash Neuro General: patient oriented x3 Extrem Other: No edema Assessment & Plan Assessment & Plan (1) Low grade mucinous neoplasm of appendix: Code(s): D37.3 - Neoplasm of uncertain behavior of appendix Category: Medical Plan 69-year-old female patient with a low-grade mucinous neoplasm of the appendix, s/p laparoscopic appendectomy one-month ago. She tolerated the procedure well and her wounds are healing nicely. She will follow up in 6 months following her CAT scan review the CT results. She will continue to follow up with Dr. Lopez for her groin cysts. 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
[2025-02-11 14:08] VITALS: BP 152/65; PULSE 89
--- OUTSIDE RECORDS SUMMARY | 2025-02-11 14:10 | XMS_ITS | Encounter Summary ---
Author Organization [facility] Address [address] [facility] 7t [place] [address] Care Team Providers Care Static Balancer Name Role Phone Unavailable Primary Care Provider Unavailabl e Encounter Details Date Type Department Care Team (Late st Contact Info) Description 07/10/2023 Abstract Jef [facility] [address] [place] [address] Slim Marr Jr., DMD [address] [place] [address] Social History Tobacco Use Types Packs/Day Years [...]
--- OUTSIDE RECORDS SUMMARY | 2025-02-11 14:10 | XMS_ITS | Encounter Summary ---
Author Organization [facility] Address [address] [place] [address] Phone Care Team Providers Care Quebracho Tanner Name Role Phone Kody Altman MD Unavailable + Sumeet Resendiz MD Unavailable [phone] Arturo Mccoy DEPUTY CHIEF MAGISTRATE Unavailable pwit Abdi Bhandari MD Unavailable Toan Walden MD Unavailable Checo Veloz MD Unavailable Checo Viramontes DO Unavailable [phone] Jose Oliver MD Unavailable [phone] Gucci Ma MD Unavailable Jaimee Kemp DPM Unavailable Unavailable Yaniv Abdullahi CASKET TRIMMER Unavailable Richa Dejesus PA-C Unavailable [phone] Lore Turner CASKET TRIMMER Unavailable Jose Rojas MD Unavailable [phone] Kody Altman MD Primary Care Prov ider Vianey Pruitt CASKET TRIMMER Primary Care Provider Li Barahona MD Primary Care Provid er Encounter Details Date Type Department Care Team (Late st Contact Info) Description 07/31/2018 Procedure Pass [facility] Endoscopy Admitting Dept Virtual Department [address] [place] [address] Social History Tobacco Use Types Packs/Day Years [...] Info) Description 10/05/2024 Procedure Pass Echo Lab [address] [place] [address] 02/23/2025 3:15 PM EDT Office Visit [facility] General Surgical Care [address] [place] [address] Sonido Christian, DEPUTY CHIEF MAGISTRATE [address] [facility], 2nd [place] [address] 03/11/2025 1:50 PM EDT Office Visit [facility] Diabetes Center [address] [place] [address] Elaine Tony, ELISA [address] [place] [address], 1st [place] [address] 04/07/2025 1:30 PM EDT Office Visit [facility] [address] [facility] 3rd Floor, [address] [place] [address] Diane Dean, DEPUTY CHIEF MAGISTRATE [address] [place] [address] 04/15/2025 3:30 PM EDT Office Visit [facility] Rheumatology [address] [place] [address] Christie Robles MD [address] [facility], [address] [place] [address] [email or web address] 06/14/2025 1:00 PM EST Nutrition [facility] [address] [place] [address] Michelle Spaulding, WENDY [address] [facility], 1st [place] [address] 09/16/2025 12:30 PM EDT Appointment [facility] [address] [place] [address] Diane Dean, DEPUTY CHIEF MAGISTRATE [address] [place] [address] 09/16/2025 2:00 PM EDT Appointment [facility] [address] [place] [address] Diane Dean, DEPUTY CHIEF MAGISTRATE [address] [place] [address] 09/16/2025 3:00 PM EDT Appointment Echo [facility] [address] [place] [address] Diane Dean, DEPUTY CHIEF MAGISTRATE [address] [place] [address] 10/01/2025 1:20 PM EDT Office Visit [facility] [address] [place] [address] [place] [address], [address] [place] [address] Toan Walden MD [address] [place] [address], [address] [address] documented as of this encounter Visit Diagnoses Not on filedocumented in this encounter Care Teams Quebracho Tanner Relationship Specialty Start Date End Date Kody Altman MD [address] [place] [address] [email or web address] PCP - General Family Medicine 07/18/17 02/01/21 Vianey Pruitt, YURI [address] [place] [address] PCP - General 02/02/21 09/25/23 Li Barahona MD [address] [place] [address] PCP - General Internal Medicine 09/26/23 Kody Altman MD [address] [place] [address] [email or web address] Historical LMR Provider 04/14/17 07/01/21 Sumeet Resendiz MD [address] [place] [address] Historical LMR Provider 04/14/17 2 Arturo Mccoy CNP [address] [place] [address] [email or web address] Historical LMR Provider 04/14/1707/01/21 Abdi Bhandari MD [address] [place] [address] Historical LMR Provider 04/14/17 07/01/21 Toan Walden MD [address] [place] [address] [place] [address] [email or web address] Historical LMR Provider 04/14/17 Checo Veloz MD [address] [place] [address] Historical LMR Provider 04/14/17 Checo Viramontes DO [address] [place] [address] Orthopedics [facility] Sports Medicine, [place] [address] Historical LMR Provider 04/14/17 07/01/21 Jose Oliver MD [address] [place] [address], 2nd [place] [address] [email or web address] Historical LMR Provider 04/14/17 07/01/21 Gucci Ma MD [address] [place] [address] [address] [place] [address] Historical LMR Provider 04/14/17 Jaimee Kemp DPM [address] [place] [address] Historical LMR Provider 04/14/1707/01/21 Yaniv Abdullahi, YURI [address] [place] [address] 2-1 [place] [id number] Historical LMR Provider 04/14/17 2 Richa Dejesus PA-C [address] [place] [address] Orthopedics & Sports Medicine, [facility] [place] [address] Historical LMR Provider 04/14/17 07/01/21 Lore Turner NP [address] [place] [address] Historical LMR Provider 04/14/17 2 Jose Rojas MD [address] [place] [address] [email or web address] Historical LMR Provider 04/14/17 documented as of this encounter Additional Source Comments The information contained in this document represents components of the legal health record. It is not the complete legal health record.[facility]
== END 2025-02-11 14:19 | disposition home or self-care (01) ==
LOC: HO.HGS 14:02
PROVIDERS: PCP Pediatrics; Visit Provider Surgery
DX: D37.3 Neoplasm of uncertain behavior of appendix (principal)
CPT/HCPCS: 99024

== ENCOUNTER 2025-06-01 07:41 | Day surgery (SDC) | payer BC, MEDICARE, MEDICAID, SELFPAY ==
--- OUTSIDE RECORDS SUMMARY | 2025-05-31 20:50 | XMS_ITS | Encounter Summary ---
Author Organization [facility] Address [address] [facility] [address] [place] [address] Phone Care Team Providers Care Grass Cutter Name Role Phone Kody Altman MD Unavailable + Sumeet Resendiz MD Unavailable [phone] Arturo Mccoy GAS DESULFURIZER Unavailable Abdi Bhandari MD Unavailable Toan Walden MD Unavailable Checo Veloz MD Unavailable Checo Viramontes DO Unavailable [phone] Jose Oliver MD Unavailable Gucci Ma MD Unavailable Jaimee Kemp DPM Unavailable Unavailable Yaniv Abdullahi GAS DESULFURIZER Unavailable [phone] Richa Dejesus PA-C Unavailable [phone] Lore Turner GAS DESULFURIZER Unavailable Jose Rojas MD Unavailable [phone] Kody Altman MD Primary Care Prov ider Vinaey Pruitt GAS DESULFURIZER Primary Care Provider Li Barahona MD Primary Care Provid er Encounter Details Date Type Department Care Team (Late st Contact Info) Description 07/31/2018 Procedure Pass [facility] Endoscopy Admitting Dept Virtual Department [address] [place] [address] Social History Tobacco Use Types Packs/Day Years [...] Info) Description 10/05/2024 Procedure Pass Echo Lab [address] [place] [address] 06/11/2025 2:00 PM EST Office Visit [facility] [address] [place] [address] 3rd Floor, [address] [place] [address] Diane Dean, MOP HANDLE ASSEMBLER [address] [place] [address] 06/14/2025 1:00 PM EST Nutrition [facility] [address] [place] [address] Michelle Spaulding LDN [address] [place] [address] 09/09/2025 1:10 PM EDT Office Visit [facility] Diabetes [address] [place] [address] Elaine Tony, MOP HANDLE ASSEMBLER [address] [place] [address] 09/15/2025 6:00 PM EDT Appointment [facility] [address] [place] [address] Christie Robles MD [address] [place] [address], [address] [address] [email or web address] 09/16/2025 12:30 PM EDT Appointment [facility] [address] [place] [address] Diane Dean, MOP HANDLE ASSEMBLER [address] [place] [address] 09/16/2025 2:00 PM EDT Appointment [facility] [address] [place] [address] Diane Dean, MOP HANDLE ASSEMBLER [address] [place] [address] 09/16/2025 3:00 PM EDT Appointment Echo Lab [address] [place] [address] Diane Dean, MOP HANDLE ASSEMBLER [address] [place] [address] 10/01/2025 1:20 PM EDT Office Visit [facility] [address] [place] [address] [place] [address], [address] [address] Toan Walden MD [address] [place] [address], [address] [address] 10/18/2025 2:00 PM EDT Office Visit [facility] Rheumatology [address] [place] [address] [place] [address] Christie Robles MD [address] [place] [address], [address] [address] [email or web address] documented as of this encounter Visit Diagnoses Not on filedocumented in this encounter Care Teams Grass Cutter Relationship Specialty Start Date End Date Kody Altman MD [address] [place] [address] [email or web address] PCP - General Family Medicine 07/18/17 02/01/21 Vianey Pruitt NP [address] [place] [address] PCP - General 02/02/21 09/25/23 Li Barahona MD [address] [address] PCP - General Internal Medicine 09/26/23 Kody Altman MD [address] [place] [address] [email or web address] Historical LMR Provider 04/14/17 07/01/21 Sumeet Resendiz MD [address] [place] [address] Historical LMR Provider 04/14/17 2 Arturo Mccoy NP [address] [place] [address] Historical LMR Provider 04/14/1707/01/21 Abdi Bhandari MD [address] [address] Historical LMR Provider 04/14/17 07/01/21 Toan Walden MD [address] [place] [address], [address] [place] [address] [email or web address] Historical LMR Provider 04/14/17 Checo Veloz MD [address] [place] [address] Historical LMR Provider 04/14/17 Checo Viramontes DO [address] [place] [address] Orthopedics Sports [facility], [place] [address] [email or web address] Historical LMR Provider 04/14/17 07/01/21 Jose Oliver MD [address] [place] [address], 2nd [place] [address] [email or web address] Historical LMR Provider 04/14/17 07/01/21 Gucci Ma MD [address] [place] [address] [address] [place] [address] [email or web address] Historical LMR Provider 04/14/17 Jaimee Kemp DPM [address] [place] [address] Historical LMR Provider 04/14/1707/01/21 Yaniv Abdullahi NP [address] [place] [address] 2-[address] [place] [address] Historical LMR Provider 04/14/17 2 Richa Dejesus PA-C [address] [place] [address] Orthopedics & Sports [facility], [place] [address] [email or web address] Historical LMR Provider 04/14/17 07/01/21 Lore Turner NP [address] [place] [address] Historical LMR Provider 04/14/17 2 Jose Rojas MD [address] [place] [address] [email or web address] Historical LMR Provider 04/14/17 documented as of this encounter Additional Source Comments The information contained in this document represents components of the legal health record. It is not the complete legal health record.[facility]
--- OUTSIDE RECORDS SUMMARY | 2025-05-31 20:50 | XMS_ITS | Encounter Summary ---
Author Organization [facility] Address [address] [facility] [address] [place] [address] Phone Care Team Providers Care Mineral Technologist Name Role Phone Koyd Altman MD Unavailable + Sumeet Resendiz MD Unavailable [phone] Arturo Mccoy PASTE UP ARTIST Unavailable [phone] Abdi Bhandari MD Unavailable Toan Walden MD Unavailable [phone] Checo Veloz MD Unavailable [phone] Checo Viramontes DO Unavailable Jose Oliver MD Unavailable Gucci Ma MD Unavailable Jaimee Kemp DPM Unavailable Unavailable Yaniv Abdullahi PASTE UP ARTIST Unavailable [phone] Richa Dejesus PA-C Unavailable [phone] Lore Turner PASTE UP ARTIST Unavailable Jose Rojas MD Unavailable [phone] Kody Altman MD Primary Care Prov ider Vianey Pruitt NP Primary Care Provider Li Barahona MD Primary Care Provid er Reason for Referral * MRI/CAT Scan - Closed Specialty Diagnoses / Procedures Referred By Contac t Referred To Contact Radiology Diagnoses Ex-smoker Personal history of nicotine dependence Procedures CT Chest Lung Cancer Screening Kody Altman MD Phone: tel: fax: [email or web address] Referral ID Status Reason Start Date Expiration Date Visits Re quested Visits Authorized [id number] Closed 06/23/2018 06/23/2019 1 1 Encounter Details Date Type Department Care Team (Late Contact Info) Description 06/23/2018 Ancillary Orders Virtual Department [address] [place] [address] Kody Altman MD [address] [place] [address] [email or web address] Ex-smoker; Personal history of nicotine dependence Social History Tobacco Use Types Packs/Day Years [...] Encounters Date Type Department Care Team (Late Contact Info) Description 10/05/2024 Procedure Pass Echo Lab [place] [address] [place] [address] 06/11/2025 2:00 PM EST Office Visit [facility] [address], [address] [place] [address] Diane Dean, [employer]ER [address] [place] [address] 06/14/2025 1:00 PM EST Nutrition [facility] [address] [place] [address] [place] [address] Michelle Spaulding, WENDY [address] [place] [address] 09/09/2025 1:10 PM EDT Office Visit [facility] [address] [place] [address] Elaine Tony CNP [address] [place] [address] 09/15/2025 6:00 PM EDT Appointment [facility], [address] [address] Christie Robles MD [address] [place] [address], [facility] [address] [place] [address] [email or web address] 09/16/2025 12:30 PM EDT Appointment [facility] [address] [place] [address] Diane Dean, [employer] [address] [place] [address] 09/16/2025 2:00 PM EDT Appointment [facility] [address] [place] [address] Diane Dean, [employer]ER [address] [place] [address] 09/16/2025 3:00 PM EDT Appointment Echo Lab [address] [place] [address] Diane Dean, [employer]ER [address] [place] [address] 10/01/2025 1:20 PM EDT Office Visit [facility] [address], [address] [place] [address] Toan Walden MD [address] [facility], [address] [place] [address] 10/18/2025 2:00 PM EDT Office Visit [facility] Rheumatology [address] [place] [address] Christie Robles MD [address] [facility], [address] [place] [address] [email or web address] documented as of this encounter Results * CT CHEST LUNG CANCER SCREENING INITIAL (07/03/2018 1:35 PM EST) Anatomical Region Laterality Modality Chest Computed Tomogra phy 07/03/2018 2:01 PM EST Impressions 07/03/2018 2:25 PM EST There is a 2-3 mm nodule in the right upper lobe which is most likely benign. Follow-up low-dose CT of the lungs in one year recommended. No other findings suspicious for malignancy. LUNG RAD: LUNG RAD CATEGORY 2 - BENIGN APPEARANCE OR BEHAVIOR - CONTINUE ANNUAL SCREENING WITH LDCT IN 12 MONTHS TOTAL CTDIvol: 1.60 mGy POS [id number] Narrative 07/03/2018 2:25 PM EST HISTORY: Low dose CT lung cancer screening. TECHNIQUE: Non-contrast, low dose axial CT with sagittal and coronal reconstructions. Automated exposure control utilized. COMPARISON EXAM: Chest x-ray 06/11/2018. This is a 63 year old patient referred for Low Dose CT Lung Cancer Screening (LDCT). The patient has no signs or symptoms of lung cancer and has a 30-pack year or greater history of tobacco smoking. They are a current smoker or have quit smoking within the last 15 years and have a written order for LDCT from a qualified health professional following a lung cancer screening counseling that attests to shared decision-making having taken place before their first screening CT. The patient is also offered smoking cessation material at the time of the LDCT. RESULTS: Right lung: Approximately 2-3 mm nodule within the inferior aspect of the anterior segment of the upper lobe (series 3, image 131). No other suspicious pulmonary nodules or masses. No evidence of focal infiltrates. Very mild emphysematous changes. No pleural effusion. Left lung: No suspicious pulmonary nodules or masses. No evidence of focal infiltrates. No pleural effusion. Mediastinum and nora: No evidence of mediastinal masses. No measurable lymphadenopathy. Heart size normal. No pericardial effusion. Diffuse calcification of the LAD. Calcification also involves the left main coronary artery. Calcification of the aortic valve and aortic root. Mild calcification of the aortic arch and descending thoracic aorta. Thoracic aorta normal in caliber. Chest wall and thoracic inlet: No evidence of chest wall masses. Abdominal structures including liver, spleen, bowel, adrenals: No evidence of significant abnormalities. Bones and other: No suspicious lytic or blastic lesions within the bones. Procedure Note Attila Lozano MD - 07/03/2018 HISTORY: Low dose CT lung cancer screening. TECHNIQUE: Non-contrast, low dose axial CT with sagittal and coronalreconstructions. Automated exposure control utilized. COMPARISON EXAM: Chest x-ray 06/11/2018. This is a 63 year old patient referred for Low Dose CT Lung CancerScreening (LDCT). The patient has no signs or symptoms of lung cancer andhas a 30-pack year or greater history of tobacco smoking. They are acurrent smoker or have quit smoking within the last 15 years and have awritten order for LDCT from a qualified health professional following alung cancer screening counseling that attests to shared decision-makinghaving taken place before their first screening CT. The patient is alsooffered smoking cessation material at the time of the LDCT. RESULTS: Right lung: Approximately 2-3 mm nodule within the inferior aspect of theanterior segment of the upper lobe (series 3, image 131). No othersuspicious pulmonary nodules or masses. No evidence of focal infiltrates.Very mild emphysematous changes. No pleural effusion. Left lung: No suspicious pulmonary nodules or masses. No evidence offocal infiltrates. No pleural effusion. Mediastinum and nora: No evidence of mediastinal masses. No measurablelymphadenopathy. Heart size normal. No pericardial effusion. Diffusecalcification of the LAD. Calcification also involves the left maincoronary artery. Calcification of the aortic valve and aortic root. Mildcalcification of the aortic arch and descending thoracic aorta. Thoracicaorta normal in caliber. Chest wall and thoracic inlet: No evidence of chest wall masses. Abdominal structures including liver, spleen, bowel, adrenals: Noevidence of significant abnormalities. Bones and other: No suspicious lytic or blastic lesions within thebones. IMPRESSION: There is a 2-3 mm nodule in the right upper lobe which is most likelybenign. Follow-up low-dose CT of the lungs in one year recommended. Noother findings suspicious for malignancy. LUNG RAD: LUNG RAD CATEGORY 2 - BENIGN APPEARANCE OR BEHAVIOR - CONTINUEANNUAL SCREENING WITH LDCT IN 12 MONTHS TOTAL CTDIvol: 1.60 mGy POS [id number] Kody Deleon MD IMG CT CHEST Fi nal Result documented in this encounter Visit Diagnoses Diagnosis Ex-smoker Personal history of tobacco use, presenting hazards to health Personal history of nicotine dependence Ex-smoker Personal history of tobacco use, presenting hazards to health Personal history of nicotine dependence documented in this encounter Care Teams Mineral Technologist Relationship Specialty Start Date End Date Kody Altman MD [address] [place] [address] [email or web address] PCP - General Family Medicine 07/18/17 02/01/21 Vianey Pruitt NP [address] [place] [address] PCP - General 02/02/21 09/25/23 Li Barahona MD [address] [address] PCP - General Internal Medicine 09/26/23 Kody Altman MD [address] [place] [address] [email or web address] Historical LMR Provider 04/14/17 07/01/21 Sumeet Resendiz MD [address] [place] [address] Historical LMR Provider 04/14/17 2 Arturo Mccoy NP [address] [place] [address] Historical LMR Provider 04/14/1707/01/21 Abdi Bhandari MD [address] [place] [address] Historical LMR Provider 04/14/17 07/01/21 Toan Walden MD [address] [place] [address] Historical LMR Provider 04/14/17 Checo Veloz MD [address] [place] [address] Historical LMR Provider 04/14/17 Checo Viramontes DO [address] [place] [address] [facility], [place] [address] Historical LMR Provider 04/14/17 07/01/21 Jose Oliver MD [address] [place], [place] [address], [place] [address] [email or web address] Historical LMR Provider 04/14/17 07/01/21 Gucci Ma MD [address] [place] [address] [address] [place] [address] [email or web address] Historical LMR Provider 04/14/17 Jaimee Kemp DPM [address] [place] [address] Historical LMR Provider 04/14/1707/01/21 Yaniv Abdullahi NP [address] [place] [address] [address] [place] [address] Historical LMR Provider 04/14/17 2 Richa Dejesus PA-C [address] [place] [address] [facility], [place] [address] [email or web address] Historical LMR Provider 04/14/17 07/01/21 Lore Turner NP [address] [place] [address] Historical LMR Provider 04/14/17 2 Jose Rojas MD [address] [facility] [address] [place] [address] [email or web address] Historical LMR Provider 04/14/17 documented as of this encounter Additional Source Comments The information contained in this document represents components of the legal health record. It is not the complete legal health record.[facility]
--- OUTSIDE RECORDS SUMMARY | 2025-05-31 20:51 | XMS_ITS | Encounter Summary ---
Author Organization [facility] Address [address] [employer] [facility] [address] [place] [address] Phone Care Team Providers Care Electrode Cleaning Machine Operator Name Role Phone Toan Walden MD Unavailable [phone] Gucci Ma MD Unavailable Jose Rojas MD Unavailable [phone] Vianey Pruitt NP Primary Care Provider Li Barahona MD Primary Care Provid er Encounter Details Date Type Department Care Team (Late st Contact Info) Description 03/19/2022 Procedure Pass Echo Lab [facility] [address] [place] [address] Social History Tobacco Use Types Packs/Day Years Used Date Smoking Tobacco: Every Day Cigarettes Smokeless Tobacco: Never Comments:was down to 4-5, in creasing past few days Alcohol Use Standard Drinks/Week Comments No 0 (1 standard drink = 0.6 oz pur e alcohol) Comments No Sex and Gender Information Value Date Recorded Sex Assigned at Female 11/29/2017 1:36 PM EDT Legal Sex Female 6:59 PM EST Gender Identity Female 11/29/2017 1:36 PM EDT Sexual Orientation Straight 07/15/2019 6: 58 PM EST documented as of this encounter Plan of Treatment Upcoming Encounters Date Type Department Care Team (Late st Contact Info) Description 10/05/2024 Procedure Pass Echo Lab [facility] [address] [place] [address] 06/11/2025 2:00 PM EST Office Visit [facility] [address] [place] [address] [address]rd Floor, [address] [place] [address] Diane Dean, NEON TUBE PUMPER [address] [place] [address] 06/14/2025 1:00 PM EST Nutrition [facility] [address] [address] Michelle Spaulding LDN [address] [address] 09/09/2025 1:10 PM EDT Office Visit [facility] [address] [address] Elaine Tony CNP [address] [place] [address] 09/15/2025 6:00 PM EDT Appointment [facility], Bone [address] [address] Christie Robles MD 22 [facility], [facility] [address] [place] [address] [email or web address] 09/16/2025 12:30 PM EDT Appointment [facility] [address] [place] [address] Diane Dean, NEON TUBE PUMPER [address] [place] [address] 09/16/2025 2:00 PM EDT Appointment [facility] [address] [place] [address] Diane Dean, NEON TUBE PUMPER [address] [place] [address] 09/16/2025 3:00 PM EDT Appointment Echo Lab [address] [place] [address] Diane Dean, [address] [address] 10/01/2025 1:20 PM EDT Office Visit [facility] [address] [place] [address] 3rd Floor, [address] [place] [address] Toan Walden MD [address] [place] [address] 10/18/2025 2:00 PM EDT Office Visit [facility] Rheumatology [address] [place] [address] [place] [address] Christie Robles MD [address] [place] [address], [address] [place] [address] [email or web address] documented as of this encounter Visit Diagnoses Not on filedocumented in this encounter Care Teams Electrode Cleaning Machine Operator Relationship Specialty Start Date End Date Vianey Pruitt NP [address] [place] [address] PCP - General 02/02/21 09/25/23 Li Barahona MD [address] [address] PCP - General Internal Medicine 09/26/23 Toan Walden MD [address] [place] [address], [address] [address] Historical LMR Provider 04/14/17 Gucci Ma MD [address] [place] [address], [address] [place] [address] [email or web address] Historical LMR Provider 04/14/17 Jose Rojas MD [address] [place] [address] 1 [place] [address] [email or web address] Historical LMR Provider 04/14/17 documented as of this encounter Additional Source Comments The information contained in this document represents components of the legal health record. It is not the complete legal health record.[facility]
--- OUTSIDE RECORDS SUMMARY | 2025-05-31 20:51 | XMS_ITS | Encounter Summary ---
Author Organization [facility] Address [address] [facility] [address] [place] [address] Phone Care Team Providers Care Electrical Sign Servicer Name Role Phone Toan Walden MD Unavailable [phone] Gucci Ma MD Unavailable Jose Rojas MD Unavailable [phone] Vianey Pruitt NP Primary Care Provider Li Barahona MD Primary Care Provid er Encounter Details Date Type Department Care Team (Late st Contact Info) Description 08/09/2022 Procedure Pass [facility] Cardiovascular And Interventional Radiology [address] [place] [address] Social History Tobacco Use Types Packs/Day Years [...] Info) Description 10/05/2024 Procedure Pass Echo Lab [place] [address] [place] [address] 06/11/2025 2:00 PM EST Office Visit [facility] [address], [address] [place] [address] Diane Dean, OCCUPATIONAL THERAPIST HOME BASED [address] [place] [address] 06/14/2025 1:00 PM EST Nutrition [facility] [address] [address] Michelle Spaulding, WENDY [address] [address] 09/09/2025 1:10 PM EDT Office Visit [facility] [address] [address] Elaine Tony, ELISA [address] [place] [email or web address] 09/15/2025 6:00 PM EDT Appointment [facility], Bone [address] [address] Christie Robles MD [address] [facility], [facility] [address] [place] [address] [email or web address] 09/16/2025 12:30 PM EDT Appointment [facility] [address] [place] [address] Diane Dean, OCCUPATIONAL THERAPIST HOME BASED [address] [place] [address] 09/16/2025 2:00 PM EDT Appointment [facility] [address] [place] [address] Diane Dean, OCCUPATIONAL THERAPIST HOME BASED [address] [place] [address] 09/16/2025 3:00 PM EDT Appointment Echo Lab [address] [place] [address] Diane Dean, [address] [address] 10/01/2025 1:20 PM EDT Office Visit [facility] [address] [place] [address] 3rd Floor, [address] [place] [address] Toan Walden MD [address] [place] [address] 10/18/2025 2:00 PM EDT Office Visit [facility] Rheumatology [address] [place] [address] [place] [address] Chrisite Robles MD [address] [place] [address], [address] [place] [address] [email or web address] documented as of this encounter Visit Diagnoses Not on filedocumented in this encounter Care Teams Electrical Sign Servicer Relationship Specialty Start Date End Date Vianey Pruitt NP [address] [place] [address] PCP - General 02/02/21 09/25/23 Li Barahona MD [address] [address] PCP - General Internal Medicine 09/26/23 Toan Walden MD [address] [place] [address], [address] [place] [address] Historical LMR Provider 04/14/17 Gucci Ma MD [address] [place] [address], [address] [place] [address] [email or web address] Historical LMR Provider 04/14/17 Jose Rojas MD [address] [place] [address] 1 [place] [address] [email or web address] Historical LMR Provider 04/14/17 documented as of this encounter Additional Source Comments The information contained in this document represents components of the legal health record. It is not the complete legal health record.[facility]
--- OUTSIDE RECORDS SUMMARY | 2025-05-31 20:51 | XMS_ITS | Encounter Summary ---
Author Organization [facility] Address [address] [facility] [address] [place] [address] Phone Care Team Providers Care [employer] Information Clerk Name Role Phone Kody Altman MD Unavailable + Sumeet Resendiz MD Unavailable [phone] Arturo Mccoy SCHEDULER CONVEYOR Unavailable Abdi Bhandari MD Unavailable Toan Walden MD Unavailable Checo Veloz MD Unavailable Checo Viramontes DO Unavailable [phone] Joes Oliver MD Unavailable [phone] Gucci Ma MD Unavailable Jaimee Kemp DPM Unavailable Unavailable Yaniv Abdullahi SCHEDULER CONVEYOR Unavailable Richa Dejesus PA-C Unavailable [phone] Lore Turner SCHEDULER CONVEYOR Unavailable Jose Rojas MD Unavailable [phone] Kody Altman MD Primary Care Prov ider Vianey Pruitt SCHEDULER CONVEYOR Primary Care Provider Li Barahona MD Primary Care Provid er Encounter Details Date Type Department Care Team (Late st Contact Info) Description 05/04/2020 Transcribe Orders [facility] [address] [place] [address] Alycia Wheeler, SCHEDULER CONVEYOR [address] [address] [email or web address] Tremors of nervous system (Primary Dx) Social History Tobacco Use Types Packs/Day Years [...] Info) Description 10/05/2024 Procedure Pass Echo Lab [address] [place] [address] 06/11/2025 2:00 PM EST Office Visit [facility] [address] [place] [address] 3rd Floor, [address] [place] [address] Diane Dean, FILM PROJECTOR OPERATOR [address] [place] [address] 06/14/2025 1:00 PM EST Nutrition [facility] Diabetes [address] [place] [address] Michelle Spaulding, WENDY [address] [facility], 1st [place] [address] 09/09/2025 1:10 PM EDT Office Visit [facility] Diabetes [address] [place] [address] Elaine Tony, FILM PROJECTOR OPERATOR [address] [place] [address], 1st [place] [address] 09/15/2025 6:00 PM EDT Appointment [facility], Bone Density - [address] [address] Christie Robles MD [address] [facility], [address] [place] [address] [email or web address] 09/16/2025 12:30 PM EDT Appointment [facility] [address] [place] [address] Diane Dean, FILM PROJECTOR OPERATOR [address] [place] [address] 09/16/2025 2:00 PM EDT Appointment [facility] [address] [place] [address] Diane Dean, FILM PROJECTOR OPERATOR [address] [place] [address] 09/16/2025 3:00 PM EDT Appointment [facility] [address] [address] Diane Dean, FILM PROJECTOR OPERATOR [address] [place] [address] 10/01/2025 1:20 PM EDT Office Visit [facility] [address] [place] [address] [place] [address], [address] [place] [address] Toan Walden MD [address] [place] [address], [facility] [address] [place] [address] 10/18/2025 2:00 PM EDT Office Visit [facility] Rheumatology 22 [place] [address] Christie Robles MD [address] [facility], [address] [place] [address] [email or web address] documented as of this encounter Results * Primidone level (05/04/2020 1:01 PM EST) PRIMIDONE 5.2 5.0 - 12.0 mcg/mL [facility] DPT OF LAB MED AND PAT+ PHENOBARBITAL 10.7 10.0 - 40.0 mcg/mL [facility] DPT OF LAB MED AND PAT+ Blood 05/04/2020 1:01 PM EST 05/04/2020 1:03 PM EST us Alycia Wheeler SCHEDULER CONVEYOR LAB BLOOD BKR ORDERABLES Amanda galeas Result [facility] DPT OF LAB MED AND PAT+ [address] [place] [address] documented in this encounter Visit Diagnoses Diagnosis Tremors of nervous system- Primary documented in this encounter Care Teams Automobile Club Information Clerk Relationship Specialty Start Date End Date Kody Altman MD [address] [place] [address] [email or web address] PCP - General Family Medicine 07/18/17 02/01/21 Vianey Pruitt NP [address] [place] [address] PCP - General 02/02/21 09/25/23 Li Barahona MD [address] [address] PCP - General Internal Medicine 09/26/23 Kody Altman MD [address] [place] [address] [email or web address] Historical LMR Provider 04/14/17 07/01/21 Sumeet Resendiz MD [address] [place] [address] Historical LMR Provider 04/14/17 2 Arturo Mccoy NP [address] [place] [address] Historical LMR Provider 04/14/1707/01/21 Abdi Bhandari MD [address] [place] [address] Historical LMR Provider 04/14/17 07/01/21 Toan Walden MD [address] [place] [address] Historical LMR Provider 04/14/17 Checo Veloz MD [address] [place] [address] Historical LMR Provider 04/14/17 Checo Viramontes DO [address] [place] [address] [facility], [place] [address] Historical LMR Provider 04/14/17 07/01/21 Jose Oliver MD [address] [place] [address], 2nd [place] [address] [email or web address] Historical LMR Provider 04/14/17 07/01/21 Gucci Ma MD [address] [place] [address] [address] [place] [address] [email or web address] Historical LMR Provider 04/14/17 Jaimee Kemp DPM [address] [place] [address] Historical LMR Provider 04/14/1707/01/21 Yaniv Abdullahi NP [address] [place] [address] [address] Historical LMR Provider 04/14/17 2 Richa Dejesus PA-C [address] [place] [address] [facility] [place] [address] [email or web address] Historical LMR Provider 04/14/17 07/01/21 Lore Turner NP [address] [place] [address] Historical LMR Provider 04/14/17 2 Jose Rojas MD [address] [place] [address] [email or web address] Historical LMR Provider 04/14/17 documented as of this encounter Additional Source Comments The information contained in this document represents components of the legal health record. It is not the complete legal health record.[facility]
--- OUTSIDE RECORDS SUMMARY | 2025-05-31 20:52 | XMS_ITS | Encounter Summary ---
Author Organization [facility] Address [address] [facility] [address] [place] [address] Phone Care Team Providers Care Plant Specialist Name Role Phone Kody Altman MD Unavailable + Sumeet Resendiz MD Unavailable [phone] Arturo Mccoy TRANSFORMER INSPECTOR Unavailable Abdi Bhandari MD Unavailable Toan Walden MD Unavailable Checo Veloz MD Unavailable Checo Viramontes DO Unavailable Jose Oliver MD Unavailable Gucci Ma MD Unavailable Jaimee Kemp DPM Unavailable Unavailable Yaniv Abdullahi TRANSFORMER INSPECTOR Unavailable Richa Dejesus PA-C Unavailable [phone] Lore Turner TRANSFORMER INSPECTOR Unavailable Jose Rojas MD Unavailable [phone] Kody Altman MD Primary Care Prov ider Vianey Pruitt TRANSFORMER INSPECTOR Primary Care Provider Li Barahona MD Primary Care Provid er Reason for Referral * Physical Therapy (Routine) - Closed Specialty Diagnoses / Procedures Referred By Contdayan t Referred To Contact Physical Therapy Diagnoses Encounter for rehabilitation Alycia Wheeler NP Phone: tel: fax: mailto:[email or web address] [address] [place] [address] Phone: tel: Referral ID Status Reason Start Date Expiration Date Visits Re quested Visits Authorized [id number] Closed 01/29/2018 01/29/2019 1 1 Encounter Details Date Type Department Care Team (Late st Contact Info) Description 01/29/2018 Transcribe Orders [facility] [address] [place] [address] Kody Altman MD [address] [place] [phone] [email or web address] Encounter for rehabilitation (Primary Dx) Social History Tobacco Use Types [...] Info) Description 10/05/2024 Procedure Pass Echo Lab [place] [address] 06/11/2025 2:00 PM EST Office Visit [facility] [address] 3[address] Floor, [address] [place] [address] Diane Dean, [address] [address] 06/14/2025 1:00 PM EST Nutrition [facility] Diabetes [address] [place] [address] Michelle Spaulding LDN [address] [address] 09/09/2025 1:10 PM EDT Office Visit [facility] Diabetes [place] [address] [place] [address] Elaine Tony, ELISA [address] [place] [address] 09/15/2025 6:00 PM EDT Appointment [facility], [facility] - [address] [address] Christie Robles MD 22 [facility], [facility] 203 [place] [address] [email or web address] 09/16/2025 12:30 PM EDT Appointment [facility] [address] [place] [address] Diane Dean, CERTIFIED FORKLIFT OPERATOR [address] [place] [address] 09/16/2025 2:00 PM EDT Appointment [facility] [address] [place] [address] Diane Dean, ELISA [address] [place] [address] 09/16/2025 3:00 PM EDT Appointment [facility] [address] [place] [address] Diane Dean, CERTIFIED FORKLIFT OPERATOR [address] [place] [address] 10/01/2025 1:20 PM EDT Office Visit [facility] [address]rd Floor, [address] [place] [address] Toan Walden MD 22 [facility], [address] [place] [address] 10/18/2025 2:00 PM EDT Office Visit [facility] Rheumatology [address] [place] [address] Christie Robles MD 22 [facility], [address] [place] [address] [email or web address] Scheduled Referrals Name Type Priority Associated Diagnoses Orde r Schedule Ambulatory referral to [facility] Physical Therapy Outpatient Referral Routine Encounter for rehabilitation Ordered: 01/29/2018 documented as of this encounter Visit Diagnoses Diagnosis Encounter for rehabilitation- Primary documented in this encounter Care Teams Plant Specialist Relationship Specialty Start Date End Date Kody Altman MD 238 [place] [address] [email or web address] PCP - General Family Medicine 07/18/17 02/01/21 Vianey Pruitt NP [address] [place] [address] PCP - General 02/02/21 09/25/23 Li Barahona MD [address] [address] PCP - General Internal Medicine 09/26/23 Kody Altman MD [address] [place] [address] [email or web address] Historical LMR Provider 04/14/17 07/01/21 Sumeet Resendiz MD [address] [place] [address] Historical LMR Provider 04/14/17 2 Arturo Mccoy NP [address] [place] [address] Historical LMR Provider 04/14/1707/01/21 Abdi Bhandari MD [address] [place] [address] Historical LMR Provider 04/14/17 07/01/21 Toan Walden MD [address] [place] [address] Historical LMR Provider 04/14/17 Checo Veloz MD [address] [place] [address] Historical LMR Provider 04/14/17 Checo Viramontes DO [address] [place] [address] [facility], [place] [address] Historical LMR Provider 04/14/17 07/01/21 Jose Oliver MD [address] [place] [address], 2nd [place] [address] [email or web address] Historical LMR Provider 04/14/17 07/01/21 Gucci Ma MD [address] [place] [address] [address] [place] [address] [email or web address] Historical LMR Provider 04/14/17 Jaimee Kemp DPM [address] [place] [address] Historical LMR Provider 04/14/1707/01/21 Yaniv Abdullahi NP [address] [place] [address] [phone] Historical LMR Provider 04/14/17 2 Richa Dejesus PA-C [address] [place] [address] [facility], [place] [address] [email or web address] Historical LMR Provider 04/14/17 07/01/21 Lore Turner NP [address] [place] [address] Historical LMR Provider 04/14/17 2 Jose Rojas MD [address] [place] [address] [email or web address] Historical LMR Provider 04/14/17 documented as of this encounter Additional Source Comments The information contained in this document represents components of the legal health record. It is not the complete legal health record.[facility]
--- OUTSIDE RECORDS SUMMARY | 2025-05-31 20:52 | XMS_ITS | Encounter Summary ---
Author Organization [facility] Address [address] [place] [address] [place] [address] Phone Care Team Providers Care Manager Sound Name Role Phone Kody Altman MD Unavailable + Sumeet Resendiz MD Unavailable [phone] Arturo Mccoy YARN BLEACHING MACHINE OPERATOR Unavailable [phone] Abdi Bhandari MD Unavailable Toan Walden MD Unavailable [phone] Checo Veloz MD Unavailable Checo Viramontes DO Unavailable [phone] Jose Oliver MD Unavailable Gucci Ma MD Unavailable Jaimee Kemp DPM Unavailable Unavailable Yaniv Abdullahi YARN BLEACHING MACHINE OPERATOR Unavailable [phone] Richa Dejesus PA-C Unavailable [phone] Lore Turner YARN BLEACHING MACHINE OPERATOR Unavailable Jose Rojas MD Unavailable [phone] Kody Altman MD Primary Care Prov ider Vianey Pruitt YARN BLEACHING MACHINE OPERATOR Primary Care Provider Li Barahona MD Primary Care Provid er Encounter Details Date Type Department Care Team (Latest Contact Info) Description 09/08/2019 Ancillary Orders [facility] [address] 3rd [facility], [address] [place] [address] Toan Walden MD [address] [facility], [address] [address] [email or web address] 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; Essential hypertension; Peripheral arterial disease; Mixed hyperlipidemia; Tobacco abuse; Other specified symptoms and signs involving the circulatory and respiratory systems; Stenosis of iliac artery Social History Tobacco Use Types Packs/Day Years [...] Info) Description 10/05/2024 Procedure Pass Echo Lab [address] [place] [address] 06/11/2025 2:00 PM EST Office Visit [facility] [address] 3rd [facility], [address] [place] [address] Diane Dean, [address] [address] 06/14/2025 1:00 PM EST Nutrition [facility] [address] [place] [address] [place] [id number] Michelle Spaulding LDN [address] [facility], 1st [place] [address] 09/09/2025 1:10 PM EDT Office Visit [facility] [address] [place] [address] [place] [address] Elaine Tony CNP [address] [place] [address], 1st [place] [address] 09/15/2025 6:00 PM EDT Appointment [facility], Bone [facility] - [address] [address] Christie Robles MD [address] [place] [address], [address] [place] [address] [email or web address] 09/16/2025 12:30 PM EDT Appointment [facility] [address] [place] [address] Diane Dean, NURSE WOUND [address] [place] [address] 09/16/2025 2:00 PM EDT Appointment [facility] [address] [place] [address] Diane Dean, NURSE WOUND [address] [place] [address] 09/16/2025 3:00 PM EDT Appointment Echo [facility] [address] [place] [address] Diane Dean, NURSE WOUND [address] [place] [address] 10/01/2025 1:20 PM EDT Office Visit [facility] [address] [place] [address] [place] [address], [address] [place] [address] Toan Walden MD [address] [place] [address], [address] [place] [address] 10/18/2025 2:00 PM EDT Office Visit [facility] Rheumatology [address] [place] [address] Christie Robles MD [address] [facility], [address] [place] [address] [email or web address] documented as of this encounter Results * US Aorta Duplex Complete (09/08/2019 2:08 PM EDT) Anatomical Region Laterality Modality Aorta Ultrasound Narrative 09/14/2019 11:54 AM EDT See scanned document. 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 Essential hypertension Unspecified essential hypertension Peripheral arterial disease Unspecified peripheral vascular disease Mixed hyperlipidemia Tobacco abuse Tobacco use disorder Other specified symptoms and signs involving the circulatory and respiratory systems Stenosis of iliac artery Atherosclerosis of stebbins arteries of the extremities, unspecified documented in this encounter Care Teams Manager Sound Relationship Specialty Start Date End Date Kody Altman MD [address] [place] [address] [email or web address] PCP - General Family Medicine 07/18/17 02/01/21 Vianey Pruitt NP 238 [place] [address] PCP - General 02/02/21 09/25/23 Li Barahona MD [address] [address] PCP - General Internal Medicine 09/26/23 Kody Altman MD 238 [place] [address] [email or web address] Historical LMR Provider 04/14/17 07/01/21 Sumeet Resendiz MD 61 [place] [address] Historical LMR Provider 04/14/17 2 Arturo Mccoy NP [address] [address] Historical LMR Provider 04/14/1707/01/21 Abdi Bhandari MD [address] [address] Historical LMR Provider 04/14/17 07/01/21 Toan Walden MD [address] [address] Historical LMR Provider 04/14/17 Checo Veloz MD [address] [place] [address] Historical LMR Provider 04/14/17 Checo Viramontes DO [address] [place] [address] [facility], [facility] [place] [address] [email or web address] Historical LMR Provider 04/14/17 07/01/21 Jose Oliver MD [address] [place] [address], 2[address] [place] [address] [email or web address] Historical LMR Provider 04/14/17 07/01/21 Gucci Ma MD [address] [place] [address] [address] [place] [address] [email or web address] Historical LMR Provider 04/14/17 Jaimee Kemp DPM [address] [place] [address] Historical LMR Provider 04/14/1707/01/21 Yaniv Abdullahi NP [address] [place] [address] 2-1 [place] [address] Historical LMR Provider 04/14/17 2 Richa Dejesus PA-C [address] [place] [address] [facility], [place] [address] [email or web address] Historical LMR Provider 04/14/17 07/01/21 Lore Turner NP [address] [place] [address] Historical LMR Provider 04/14/17 2 Jose Rojas MD [address] [place] [address] [email or web address] Historical LMR Provider 04/14/17 documented as of this encounter Additional Source Comments The information contained in this document represents components of the legal health record. It is not the complete legal health record.[facility]
--- OUTSIDE RECORDS SUMMARY | 2025-05-31 20:53 | XMS_ITS | Encounter Summary ---
Author Organization [facility] Address [address] [place] [address] [place] [address] Phone Care Team Providers Care Jig Builder Helper Name Role Phone Kody Altman MD Unavailable + Sumeet Resendiz MD Unavailable [phone] Arturo Mccoy BOX TURNER Unavailable Abdi Bhandari MD Unavailable Toan Walden MD Unavailable [phone] Checo Veloz MD Unavailable Checo Viramontes DO Unavailable [phone] Jose Oliver MD Unavailable Gucci Ma MD Unavailable Jaimee Kemp DPM Unavailable Unavailable Yaniv Abdullahi BOX TURNER Unavailable Richa Dejesus PA-C Unavailable [phone] Lore Turner BOX TURNER Unavailable Jose Rojas MD Unavailable [phone] Kody Altman MD Primary Care Prov ider Vianey Pruitt BOX TURNER Primary Care Provider Li Barahona MD Primary Care Provid er Encounter Details Date Type Department Care Team (Late st Contact Info) Description 08/15/2020 Procedure Pass Echo Lab [address] [place] [address] Social History Tobacco Use Types Packs/Day Years [...] Info) Description 10/05/2024 Procedure Pass Echo Lab [address] [place] [address] 06/11/2025 2:00 PM EST Office Visit [facility] [address] [place] [address] 3rd Floor, [address] [place] [address] Diane Dean, RADIAL DRILL PRESS OPERATOR FOR PLASTIC [address] [place] [address] 06/14/2025 1:00 PM EST Nutrition [facility] [address] [place] [address] [place] [address] Michelle Spaulding LDN [address] [place] [address], [address] [place] [address] 09/09/2025 1:10 PM EDT Office Visit [facility] [address] [place] [address] [place] [address] Elaine Tony, RADIAL DRILL PRESS OPERATOR FOR PLASTIC [address] [place] [address], [address] [place] [address] 09/15/2025 6:00 PM EDT Appointment [facility], Bone [address] [address] Christie Robles MD [address] [place] [address], [address] [place] [address] [email or web address] 09/16/2025 12:30 PM EDT Appointment [facility] [address] [place] [address] Diane Dean, RADIAL DRILL PRESS OPERATOR FOR PLASTIC [address] [place] [address] 09/16/2025 2:00 PM EDT Appointment [facility] [address] [place] [address] Diane Dean, RADIAL DRILL PRESS OPERATOR FOR PLASTIC [address] [place] [address] 09/16/2025 3:00 PM EDT Appointment Echo [facility] [address] [place] [address] Diane Dean, RADIAL DRILL PRESS OPERATOR FOR PLASTIC [address] [place] [address] 10/01/2025 1:20 PM EDT Office Visit [facility] [address] [place] [address] [place] [address], [address] [place] [address] Toan Walden MD [address] [place] [address], [address] [address] 10/18/2025 2:00 PM EDT Office Visit [facility] Rheumatology [address] [place] [address] [place] [address] Christie Robles MD [address] [place] [address], [address] [place] [address] [email or web address] documented as of this encounter Visit Diagnoses Not on filedocumented in this encounter Care Teams Jig Builder Helper Relationship Specialty Start Date End Date Kody Altman MD [address] [place] [address] [email or web address] PCP - General Family Medicine 07/18/17 02/01/21 Vianey Pruitt, YURI [address] [place] [address] PCP - General 02/02/21 09/25/23 Li Barahona MD [address] [address] PCP - General Internal Medicine 09/26/23 Kody Altman MD 238 [place] [address] [email or web address] Historical LMR Provider 04/14/17 07/01/21 Sumeet Resendiz MD [address] [place] [address] Historical LMR Provider 04/14/17 2 Arturo Mccoy NP [address] [place] [address] Historical LMR Provider 04/14/1707/01/21 Abdi Bhandari MD [address] [address] Historical LMR Provider 04/14/17 07/01/21 Toan Walden MD [address] [place] [address] 301 [place] [address] [email or web address] Historical LMR Provider 04/14/17 Checo Veloz MD [address] [place] [address] Historical LMR Provider 04/14/17 Checo Viramontes DO [address] [place] [address] [facility], [place] [address] [email or web address] Historical LMR Provider 04/14/17 07/01/21 Jose Oliver MD [address] [place] [address], 2nd [place] [address] [email or web address] Historical LMR Provider 04/14/17 07/01/21 Gucci Ma MD [address] [place] [address] [email or web address] Historical LMR Provider 04/14/17 Jaimee Kemp DPM [address] [place] [address] Historical LMR Provider 04/14/1707/01/21 Yaniv Abdullahi, YURI [address] [place] [address] 2-1 [place] [address] Historical LMR Provider 04/14/17 2 Richa Dejesus PA-C [address] [place] [address] [facility], [place] [address] [email or web address] Historical LMR Provider 04/14/17 07/01/21 Lore Turner NP [address] [place] [address] Historical LMR Provider 04/14/17 2 Jose Rojas MD [address] [place] [address] [email or web address] Historical LMR Provider 04/14/17 documented as of this encounter Additional Source Comments The information contained in this document represents components of the legal health record. It is not the complete legal health record.[facility]
--- OUTSIDE RECORDS SUMMARY | 2025-05-31 20:53 | XMS_ITS | Encounter Summary ---
Author Organization [facility] Address [address] [employer] [employer] [facility] [address] [place] [address] Phone Care Team Providers Care Pantograph I Engraver Name Role Phone Toan Walden MD Unavailable [phone] Gucci Ma MD Unavailable Jose Rojas MD Unavailable [phone] Li Barahona MD Primary Care Provid er Encounter Details Date Type Department Care Team (Late st Contact Info) Description 12/09/2024 Procedure Pass [facility] [address] [place] [address] Social History Tobacco Use Types Packs/Day Years Used Date Smoking Tobacco: Some Days Cigarettes Smokeless Tobacco: Never Comments:was down to 4-5, in creasing past few days Alcohol Use Standard Drinks/Week Comments No 0 (1 standard drink = 0.6 oz pur e alcohol) Education Answer Date Recorded Are you interested in more education? Not on brandee e 10/20/2022 Are you concerned about learning? Not on file 10/20/2022 No 10/20/2022 No 10/20/2022 Digital Access Answer Date Recorded No 11/18/2022 No 11/18/2022 Reliable internet access at home? Not on file 11/18/2022 Device with a working camera? Not on file Intimate Partner Violence Answer Date R ecorded Are you denied basic needs s uch as food, clothing, or medical care? No 02/03/2024 In the past 12 months have y ou been in a relationship with a person who hurts, threatens, or tries to control you? No 02/03/2024 Are you denied basic needs s uch as food, clothing, or medical care? No 02/03/2024 In the past 12 months have y ou been in a relationship with a person who hurts, threatens, or tries to control you? No 02/03/2024 Comments No Sex and Gender Information Value Date Recorded Sex Assigned at Female 11/29/2017 1:36 PM EDT Legal Sex Female 6:59 PM EST Gender Identity Female 11/29/2017 1:36 PM EDT Sexual Orientation Straight 07/15/2019 6: 58 PM EST documented as of this encounter Plan of Treatment Upcoming Encounters Date Type Department Care Team (Late st Contact Info) Description 10/05/2024 Procedure Pass Echo Lab [address] [place] [address] 06/11/2025 2:00 PM EST Office Visit [facility] [address] [place] [address] 3rd Floor, [address] [place] [address] Diane Dean, WATCHER AUTOMAT LONG GOODS [address] [place] [address] 06/14/2025 1:00 PM EST Nutrition [facility] [address] [place] [address] Michelle Spaulding, WENDY [address] [place] [address], [address] [place] [address] 09/09/2025 1:10 PM EDT Office Visit [facility] [address] [place] [address] [place] [address] Elaine Tony, WATCHER [employer] [address] [place] [address], [address] [place] [address] 09/15/2025 6:00 PM EDT Appointment [facility], [facility] [address] [place] [address] Christie Robles MD [address] [place] [address], [address] [place] [address] [email or web address] 09/16/2025 12:30 PM EDT Appointment [facility] [address] [place] [address] Diane Dean, WATCHER [employer] [address] [place] [address] 09/16/2025 2:00 PM EDT Appointment [facility] [address] [place] [address] Diane eDan, WATCHER [employer] [address] [place] [address] 09/16/2025 3:00 PM EDT Appointment [facility] [address] [address] Diane Dean, WATCHER AUTOMAT [employer] GOODS [address] [place] [address] 10/01/2025 1:20 PM EDT Office Visit [facility] [address] [place] [address], [address] [address] Toan Walden MD [address] [place] [address], [address] [address] 10/18/2025 2:00 PM EDT Office Visit [facility] Rheumatology [address] [place] [address] Christie Robles MD [address] [place] [address], [address] [address] [email or web address] documented as of this encounter Visit Diagnoses Not on filedocumented in this encounter Care Teams Pantograph I Engraver Relationship Specialty Start Date End Date Li Barahona MD 325B [facility] [address] [place] [address] PCP - General Internal Medicine 09/26/23 Toan Walden MD [address] [place] [address] [address] [place] [address] [email or web address] Historical LMR Provider 04/14/17 Gucci Ma MD [address] [place] [address] [address] [place] [address] [email or web address] Historical LMR Provider 04/14/17 Jose Rojas MD [address] [address] [email or web address] Historical LMR Provider 04/14/17 documented as of this encounter Additional Source Comments The information contained in this document represents components of the legal health record. It is not the complete legal health record.[facility]
--- OUTSIDE RECORDS SUMMARY | 2025-05-31 20:55 | XMS_ITS | Encounter Summary ---
Author Organization [facility] Address [address] [place] [address] Phone Care Team Providers Care Carpenter Rough Name Role Phone Toan Walden MD Unavailable [phone] Gucci Ma MD Unavailable Jose Rojas MD Unavailable [phone] Vianey Pruitt NP Primary Care Provider Li Barahona MD Primary Care Provid er Encounter Details Date Type Department Care Team (Latest Contact Info) Description 02/15/2023 Ancillary Orders [facility] [address] 3rd Floor, [address] [place], [place] [id number] Jessika Ribeiro, CHEMICAL ENGINEERING PROFESSOR [address] [place] [address] [email or web address] Peripheral arterial disease Social History Tobacco Use Types Packs/Day Years Used Date Smoking Tobacco: Former Cigarettes Smokeless Tobacco: Never Comments:was down to [...] with a working camera? Not on file Comments No Sex and Gender Information Value Date Recorded Sex Assigned at Female 11/29/2017 1:36 PM EDT Legal Sex Female 6:59 PM EST Gender Identity Female 11/29/2017 1:36 PM EDT Sexual Orientation Straight 07/15/2019 6: 58 PM EST documented as of this encounter Plan of Treatment Upcoming Encounters Date Type Department Care Team (Late st Contact Info) Description 10/05/2024 Procedure Pass Echo Lab [address] [place] [address] 06/11/2025 2:00 PM EST Office Visit [facility] [address] [place] [address] 3rd Floor, [address] [place] [address] Diane Dean, HEAD BANQUET WAITER/WAITRESS [address] [place] [address] 06/14/2025 1:00 PM EST Nutrition [facility] [address] [place] [address] Michelle Spaulding, WENDY 22 [facility], 1st [place] [address] 09/09/2025 1:10 PM EDT Office Visit [facility] [address] [place] [address] Elaine Tony, HEAD BANQUET WAITER/WAITRESS 22 [facility], 1st [place] [address] 09/15/2025 6:00 PM EDT Appointment [facility], Bone [facility] [address] [place] [address] Christie Robles MD 22 [facility], [address] [place] [address] [email or web address] 09/16/2025 12:30 PM EDT Appointment [facility] [address] [place] [address] Diane Dean, HEAD BANQUET WAITER/WAITRESS [address] [place] [address] 09/16/2025 2:00 PM EDT Appointment [facility] [address] [place] [address] Diane Dean, HEAD BANQUET WAITER/WAITRESS [address] [place] [address] 09/16/2025 3:00 PM EDT Appointment [facility] [address] [place] [address] Diane Dean, HEAD BANQUET WAITER/WAITRESS [address] [place] [address] 10/01/2025 1:20 PM EDT Office Visit [facility] [address] [place] [address] [place] [address], [address] [place] [address] Toan Walden MD [address] [place] [address], [address] [place] [address] 10/18/2025 2:00 PM EDT Office Visit [facility] Rheumatology [address] [place] [address] [place] [address] Chrsitie Robles MD [address] [place] [address], [address] [place] [address] [email or web address] documented as of this encounter Results * US Upper Extremity Arteries Duplex Limited (Bilateral) (02/15/2023 4:03 PM EDT) Anatomical Region Laterality Modality Ultrasound Narrative 02/18/2023 11:03 AM EDT See scanned report Procedure Note Jefferson Krishnan, DO - 02/18/2023 See scanned report us Jessika Ribeiro NP US VASCULAR Final Result documented in this encounter Visit Diagnoses Diagnosis Peripheral arterial disease Unspecified peripheral vascular disease 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 Essential hypertension Unspecified essential hypertension Nonrheumatic aortic valve stenosis Peripheral arterial disease Unspecified peripheral vascular disease documented in this encounter Care Teams Carpenter Rough Relationship Specialty Start Date End Date Vianey Pruitt NP [address] [place] [address] PCP - General 02/02/21 09/25/23 Li Barahona MD [address] [address] PCP - General Internal Medicine 09/26/23 Toan Walden MD 22 [facility] 301 [place] [address] [email or web address] Historical LMR Provider 04/14/17 Gucci Ma MD [address] [address] [email or web address] Historical LMR Provider 04/14/17 Jose Rojas MD [address] [address] [email or web address] Historical LMR Provider 04/14/17 documented as of this encounter Additional Source Comments The information contained in this document represents components of the legal health record. It is not the complete legal health record.[facility]
--- OUTSIDE RECORDS SUMMARY | 2025-05-31 20:58 | XMS_ITS | Encounter Summary ---
Author Organization [facility] Address [address] [facility] [address] [place] [address] Phone Care Team Providers Care Mechanical Sound Technician Name Role Phone Toan Walden MD Unavailable [phone] Gucci Ma MD Unavailable Jose Rojas MD Unavailable [phone] Li Barhaona MD Primary Care Provid er Reason for Referral * MRI/CAT Scan - New Request Specialty Diagnoses / Procedures Referred By Contac t Referred To Contact Radiology Diagnoses Radiculopathy, lumbar region Procedures MRI Lumbar Spine Rolando Zapata MD [address] [place] [address] Phone: tel: fax: Referral ID Status Reason Start Date Expiration Date V isits Requested Visits Authorized [id number] New Request 08/11/2024 1 1 Encounter Details Date Type Department Care Team (Latest Contact Info) Description 08/11/2024 Transcribe Orders Virtual Department 30 [place] [address] Rolando Zapata MD [address] [place] [address] Radiculopathy, lumbar region (Primary Dx) Social History Tobacco Use Types [...] Info) Description 10/05/2024 Procedure Pass Echo Lab [address] [place] [address] 06/11/2025 2:00 PM EST Office Visit [facility] [address] 3[address] Floor, [address] [place] [address] Diane Dean, BOW MACHINE OPERATOR [address] [place] [address] 06/14/2025 1:00 PM EST Nutrition [facility] [address] [place] [address] Michelle Spaulding, WENDY [address] [address] 09/09/2025 1:10 PM EDT Office Visit [facility] [address] [place] [address] [place] [address] Elaine Tony CNP [address] [address] 09/15/2025 6:00 PM EDT Appointment [facility], Bone [address] [address] Christie Robles MD 22 [facility] 203 [place] [address] [email or web address] 09/16/2025 12:30 PM EDT Appointment [facility] [address] [place] [address] Diane Dean, BOW MACHINE OPERATOR [address] [place] [address] 09/16/2025 2:00 PM EDT Appointment [facility] [address] [place] [address] Diane Dean, BOW MACHINE OPERATOR [address] [place] [address] 09/16/2025 3:00 PM EDT Appointment [facility] [address] [place] [address] Diane Dean, BOW MACHINE OPERATOR [address] [place] [address] 10/01/2025 1:20 PM EDT Office Visit [facility] [address] 3rd Floor, [address] [place] [address] Toan Walden MD [address] [place] [address], [address] [address] 10/18/2025 2:00 PM EDT Office Visit [facility] [address] [place] [address] Christie Robles MD [address] [place] [address], [address] [place] [address] [email or web address] Scheduled Orders Name Type Priority Associated Diagnoses Orde r Schedule MRI Lumbar Spine Imaging Routine Radiculopathy, lumbar region Expected: 08/11/2024, Expires: 08/11/2025 documented as of this encounter Visit Diagnoses Diagnosis Radiculopathy, lumbar region- Primary Thoracic or lumbosacral neuritis or radiculitis, unspecified documented in this encounter Care Teams Mechanical Sound Technician Relationship Specialty Start Date End Date Li Barahona MD [address] [address] PCP - General Internal Medicine 09/26/23 Toan Walden MD [address] [place] [address], [address] [address] Historical LMR Provider 04/14/17 Gucci Ma MD [address] [place] [address] 202 [place] [address] Historical LMR Provider 04/14/17 Jose Rojas MD [address] [place] [address] [email or web address] Historical LMR Provider 04/14/17 documented as of this encounter Additional Source Comments The information contained in this document represents components of the legal health record. It is not the complete legal health record.[facility]
--- OUTSIDE RECORDS SUMMARY | 2025-05-31 20:58 | XMS_ITS | Encounter Summary ---
Author Organization [facility] Address [address] [facility] [address] [place] [address] Phone Care Team Providers Care Tourist Guide Name Role Phone Toan Walden MD Unavailable [phone] Gucci Ma MD Unavailable Jose Rojas MD Unavailable [phone] Li Barahona MD Primary Care Provid er Reason for Visit * Reason Comments Medication Refill Encounter Details Date Type Department Care Team (Late st Contact Info) Description 05/30/2025 Refill [facility] Rheumatology [address] [place] [address] Christie Robles MD 22 [facility], [address] [place] [address] [email or web address] Medication Refill Social History Tobacco Use Types Packs/Day Years [...] Info) Description 10/05/2024 Procedure Pass Echo Lab [address] [place] [address] 06/11/2025 2:00 PM EST Office Visit [facility] [address] [place] [address] 3rd Floor, [address] [place] [address] Diane Dean, HIGH LEAD YARDER [address] [place] [address] 06/14/2025 1:00 PM EST Nutrition [facility] Diabetes [address] [place] [address] Michelle Spaulding LDN [address] [place] [address], [address] [place] [address] 09/09/2025 1:10 PM EDT Office Visit [facility] [address] [place] [address] Elaine Tony, HIGH LEAD YARDER [address] [place] [address], [address] [place] [address] 09/15/2025 6:00 PM EDT Appointment [facility], [address] [address] Christie Robles MD [address] [place] [address], [address] [place] [address] [email or web address] 09/16/2025 12:30 PM EDT Appointment [facility] [address] [place] [address] Diane Dean, HIGH LEAD YARDER [address] [place] [address] 09/16/2025 2:00 PM EDT Appointment [facility] [address] [place] [address] Diane Dean, HIGH LEAD YARDER [address] [place] [address] 09/16/2025 3:00 PM EDT Appointment [facility] [address] [address] Diane Dean, HIGH LEAD YARDER [address] [place] [address] 10/01/2025 1:20 PM EDT Office Visit [facility] [address] [place] [address] [place] [address], [address] [place] [address] Toan Walden MD [address] [place] [address], [address] [address] 10/18/2025 2:00 PM EDT Office Visit [facility] Rheumatology [address] [place] [address] [place] [address] Christie Robles MD 22 [facility], [address] [place] [address] [email or web address] documented as of this encounter Visit Diagnoses Diagnosis Inflammatory polyarthropathy Unspecified inflammatory polyarthropathy documented in this encounter Care Teams Tourist Guide Relationship Specialty Start Date End Date Li Barahona MD 325B [facility] [address] [place] [address] PCP - General Internal Medicine 09/26/23 Toan Walden MD [address] [place] [address] 301 [place] [address] [email or web address] Historical LMR Provider 04/14/17 Gucci Ma MD [address] [place] [address] 202 [place] [address] [email or web address] Historical LMR Provider 04/14/17 Jose Rojas MD [address] [address] [email or web address] Historical LMR Provider 04/14/17 documented as of this encounter Additional Source Comments The information contained in this document represents components of the legal health record. It is not the complete legal health record.[facility]
--- OUTSIDE RECORDS SUMMARY | 2025-05-31 20:59 | XMS_ITS | Encounter Summary ---
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 Peripheral arterial disease Nonrheumatic aortic valve stenosis Procedures NC Myocardial Perfusion Exercise Multiple NC Myocardial Perfusion Pharmacologic Stress Multiple Toan Walden MD Phone: tel: fax: [email or web address] Referral ID Status Reason Start Date Expiration Date Visits Re quested Visits Authorized [id number] Closed 10/16/2023 10/15/2024 1 1 Encounter Details Date Type Department Care Team (Latest Contact Info) Description 10/30/2023 Ancillary Orders [facility] [address] [facility] 3rd Floor, [address] [place], [place] [id number] Toan Walden MD [address] [facility], [address] [place], [place] [phone] [email or web address] Essential hypertension (Primary Dx); 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; Peripheral arterial disease; Nonrheumatic aortic valve stenosis Social History Tobacco Use Types Packs/Day Years [...] Info) Description 10/05/2024 Procedure Pass Echo Lab [address] [place] [address] 06/11/2025 2:00 PM EST Office Visit [facility] [address] [place] [address] 3rd Floor, [address] [place] [address] Diane Dean, COMPUTER RECYCLING WORKER [address] [place] [address] 06/14/2025 1:00 PM EST Nutrition [facility] [address] [place] [address] [place] [address] Michelle Spaulding LDN [address] [facility], 1st [place] [address] 09/09/2025 1:10 PM EDT Office Visit [facility] [address] [place] [address] Elaine Tony CNP [address] [place] [address], [address] [place] [address] 09/15/2025 6:00 PM EDT Appointment [facility] - [address] [address] Christie Robles MD [address] [place] [address], [address] [place] [address] [email or web address] 09/16/2025 12:30 PM EDT Appointment [facility] [address] [place] [address] Diane Dean, COMPUTER RECYCLING WORKER [address] [place] [address] 09/16/2025 2:00 PM EDT Appointment [facility] [address] [place] [address] Diane Dean, COMPUTER RECYCLING WORKER [address] [place] [address] 09/16/2025 3:00 PM EDT Appointment [facility] [address] [place] [address] Diane Dean, COMPUTER RECYCLING WORKER [address] [place] [address] 10/01/2025 1:20 PM EDT Office Visit [facility] [address] [place] [address] [place] [address], [address] [place] [address] Toan Walden MD [address] [place] [address], [address] [place] [address] 10/18/2025 2:00 PM EDT Office Visit [facility] Rhe[facility] [address] [place] [address] Christie Robles MD [address] [facility], [address] [place] [address] [email or web address] documented as of this encounter Results * NC Myocardial Perfusion Exercise Multiple (10/30/2023 1:23 PM EDT) Max Predicted Heart Rate 154 bpm Stress/rest perfusion ratio 0.93 Nuc Stress EF 59 % SNMDIAVOL 98.0 mL SNMSYSVOL 40.0 mL Nuc Rest EF 56 % RNMDIAVOL 98.0 mL RNMSYSVOL 43.0 mL Anatomical Region Laterality Modality Heart, Vascular Ultrasound Narrative 10/31/2023 12:53 PM EDT Myocardial perfusion stress test imaging report-Normal No significant myocardial perfusion defects were seen at stress and at rest images Normal left ventricular systolic function. LV EF is 56% Conclusion; No ischemia or infarction seen Normal left ventricular systolic function. Stress Findings NUCLEAR REPORT: TYPE OF STUDY: Myocardial Perfusion Imaging after exercise utilizing a standard Aaron protocol with gated SPECT. PROTOCOL USED: One day rest- stress protocol in the supine and prone position. Images were obtained in gated tomographic technique. Images were processed in SPECT format, reconstructed tomographically and compared bgzz-tr-tmgk in short axis, horizontal long axis and vertical long axis. DOSE: Technetium 99m Sestamibi 7.4 mCi injected intravenously in the right antecubital vein at rest on 10/30/2023 with post injection scan time of 60 minutes. Technetium 99m Sestamibi 22.4 mCi injected intravenously in the right arm antecubital vein during stress on 10/30/2023 with post injection scan time of 20 minutes. Overall image quality is good. No motion artifact is present. ECG STRESS REPORT: BMI: 25.06 Jumana Lagos exercised for 4:01 minutes on a AARON protocol achieving 5.1 METS. Test terminated due to fatigue. Baseline resting heart rate was 74 bpm. Maximum heart rate achieved was 136 bpm (88% MPHR). 1. EKG - Baseline EKG showed sinus rhythm. During exercise, there were up to [address] depressions in the inferior leads and V3-V6. 2. SYMPTOMS - No chest pain. 3. EXERCISE PHYSIOLOGY - Fair functional capacity for age. BP 138/80 at rest, 190/80 during exercise, and 164/74 upon discharge from stress lab. 4. ARRHYTHMIAS - Rare, isolated PVCs. Conclusion - EKG evidence of ischemia. No symptoms concerning for angina. Nuclear images pending and will be reported separately. See attached stress report for full details. ALISHA Barrios Stress Function Defect Left ventricular global function is normal during stress. Stress ejection fraction is 59 %. The stress end diastolic cavity size is normal. Stress end diastolic size: 98.0 mL. The stress end systolic cavity size is normal. Stress end systolic size: 40.0 mL. Rest Function Defect Left ventricular global function is normal at rest. Resting ejection fraction was 56 %. The rest end diastolic cavity size is normal. Rest end diastolic size: 98.0 ml. The rest end systolic cavity size is normal. Rest end systolic size: 43.0 mL. Nuclear Prior Study There is no prior study available for comparison. Nuclear Ancillary Finding There is no evidence of transient ischemic dilation (TID). The TID ratio is 0.93, which is normal. Perfusion Scoring Resting Summed Score: 1 Percent Normal: 1.47% Mild count reduction in the following segments: apical septal. All other segments are normal. SUPINE IMAGING REST Perfusion Scoring Stress Summed Score: 1 Percent Normal: 1.47% Mild count reduction in the following segments: apical septal. All other segments are normal. PRONE IMAGING STRESS Perfusion Scores: SRS Score: 1 Percentage Abnormal: 1.47% Perfusion Scores: SSS Score: 1 Percentage Abnormal: 1.47% Perfusion Scores: SDS Score: 0 Percentage Abnormal: 0.00% Procedure Note Vik Cox MD - 10/31/2023 Myocardial perfusion stress test imaging report-Normal No significant myocardial perfusion defects were seen at stress and atrest images Normal left ventricular systolic function. LV EF is 56% Conclusion; No ischemia or infarction seen Normal left ventricular systolic function. 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 Peripheral arterial disease Unspecified peripheral vascular disease Nonrheumatic aortic valve stenosis documented in this encounter Care Teams Window Shade Installer Relationship Specialty Start Date End Date Li Barahona MD [address] [facility] [address] [place] [address] PCP - General Internal Medicine 09/26/23 Toan Walden MD 22 [facility] 301 [place] [address] [email or web address] Historical LMR Provider 04/14/17 Gucci Ma MD [address] [place] [address] [address] [place] [address] [email or web address] Historical LMR Provider 04/14/17 Jose Rojas MD 10 [facility] 1 [place] [address] [email or web address] Historical LMR Provider 04/14/17 documented as of this encounter Additional Source Comments The information contained in this document represents components of the legal health record. It is not the complete legal health record.[facility]
--- OUTSIDE RECORDS SUMMARY | 2025-05-31 20:59 | XMS_ITS | Encounter Summary ---
Author Organization [facility] Address [address] [facility] [address] [place] [address] Phone Care Team Providers Care Shelving Supervisor Name Role Phone Toan Walden MD Unavailable [phone] Gucci Ma MD Unavailable Jose Rojas MD Unavailable [phone] Li Barahona MD Primary Care Provid er Reason for Referral * MRI/CAT Scan - Closed Specialty Diagnoses / Procedures Referred By Contac t Referred To Contact Radiology Diagnoses Gluteal tendinitis of left buttock Procedures MRI Hip (Left) Rolando Zapata MD [address] [place] [address] Phone: tel: fax: Referral ID Status Reason Start Date Expiration Date Visits Re quested Visits Authorized [id number] Closed 06/10/2024 06/10/2025 1 1 Encounter Details Date Type Department Care Team (Latest Contact Info) Description 06/10/2024 Transcribe Orders Virtual Department [address] [place] [address] Rolando Zapata MD [address] [place] [address] Gluteal tendinitis of left buttock (Primary Dx) Social History Tobacco Use Types [...] Info) Description 10/05/2024 Procedure Pass Echo Lab [place] [address] [place] [address] 06/11/2025 2:00 PM EST Office Visit [facility] [address] [place] [address] 3rd Floor, [address] [place] [address] Diane Dean, SOCIAL WORKER AIDE 50 [place] [address] 06/14/2025 1:00 PM EST Nutrition [facility] [address] [place] [address] Michelle Guy, WENDY [address] [facility], [address] [place] [address] 09/09/2025 1:10 PM EDT Office Visit [facility] 22 [place] [address] Elaine Tony CNP [address] [address] 09/15/2025 6:00 PM EDT Appointment [address] [address] Christie Robles MD [address] [place] [address], [address] [address] [email or web address] 09/16/2025 12:30 PM EDT Appointment [facility] [address] [place] [address] Diane Dean, SOCIAL WORKER AIDE [address] [place] [address] 09/16/2025 2:00 PM EDT Appointment [facility] [address] [place] [address] Diane Dean, SOCIAL WORKER AIDE [address] [place] [address] 09/16/2025 3:00 PM EDT Appointment Echo Lab [address] [place] [address] Diane Dean, SOCIAL WORKER AIDE [address] [place] [address] 10/01/2025 1:20 PM EDT Office Visit [facility] [address] [place] [address]rd Floor, [address] [place] [address] Toan Walden MD [address] [facility], [address] [place] [address] 10/18/2025 2:00 PM EDT Office Visit [facility] Rheumatology [address] [place] [address] Christie Robles MD [address] [facility], [address] [place] [address] [email or web address] documented as of this encounter Results * MRI HIP WITHOUT CONTRAST (LEFT) (06/19/2024 6:17 PM EST) Anatomical Region Laterality Modality Hip Left Magnetic Resonan ce 06/22/2024 11:2 0 AM EST Impressions 06/22/2024 11:31 AM EST 1. Vertically oriented linear STIR hyperintense signal within the left sacral ala seen on the large tworm-tj-sstu coronal images, suspicious for a sacral insufficiency fracture. This can be further evaluated with dedicated pelvic MRI. 2. Mild gluteus minimus tendinosis without tear. 3. Nondisplaced acetabular labral tear. Narrative 06/22/2024 11:31 AM EST MRI HIP WITHOUT CONTRAST (LEFT) Referring clinician's provided indication for this examination in Epic: Outside Radiology Order; gluteal tendinitis TECHNIQUE: Multi-sequence, multi-planar MRI of the hip without intravenous contrast. COMPARISON: CT ABDOMEN/PELVIS WITH CONTRAST FINDINGS: ENTIRE PELVIS SCREENING: Vertically oriented linear STIR hyperintense signal within the left sacral ala best seen on the large sheyy-eb-essi coronal images. No other fracture, sacroiliitis, or focal bone lesion. No intrapelvic soft tissue abnormality. DEDICATED HIP: Bone: No fracture or osteonecrosis. Joint: Nondisplaced anterior superior labral tear. No focal chondral defect or subchondral edema. No effusion or synovitis. Tendons: Mild gluteus minimus tendinosis with peritendinitis edema. Chronic hamstring origin tendinosis with chronic low-grade partial-thickness tearing. The gluteus medius, iliopsoas, and rectus femoris are intact. Soft Tissues: No significant muscle atrophy. No soft tissue mass. No bursal collection. Procedure Note Vishal Noe MD - 06/22/2024 MRI HIP WITHOUT CONTRAST (LEFT) Referring clinician's provided indication for this examination in Epic:Outside Radiology Order; gluteal tendinitis TECHNIQUE: Multi-sequence, multi-planar MRI of the hip without intravenouscontrast. COMPARISON: CT ABDOMEN/PELVIS WITH CONTRAST FINDINGS: ENTIRE PELVIS SCREENING: Vertically oriented linear STIR hyperintensesignal within the left sacral ala best seen on the large tohwn-of-mktxgysbdrk images. No other fracture, sacroiliitis, or focal bone lesion. Nointrapelvic soft tissue abnormality. DEDICATED HIP: Bone: No fracture or osteonecrosis. Joint: Nondisplaced anterior superior labral tear. No focal chondraldefect or subchondral edema. No effusion or synovitis. Tendons: Mild gluteus minimus tendinosis with peritendinitis edema.Chronic hamstring origin tendinosis with chronic gnw-akbrvazgxlhc-npjmkljsf tearing. The gluteus medius, iliopsoas, and rectusfemoris are intact. Soft Tissues: No significant muscle atrophy. No soft tissue mass. Nobursal collection. IMPRESSION: 1. Vertically oriented linear STIR hyperintense signal within the leftsacral ala seen on the large iucrx-mh-dziu coronal images, suspicious fora sacral insufficiency fracture. This can be further evaluated withdedicated pelvic MRI. 2. Mild gluteus minimus tendinosis without tear. 3. Nondisplaced acetabular labral tear. Rolando Zapata MD IMG MR EXTREMITY Final R esult documented in this encounter Visit Diagnoses Diagnosis Gluteal tendinitis of left buttock- Primary Gluteal tendinitis of left buttock documented in this encounter Care Teams Shelving Supervisor Relationship Specialty Start Date End Date Li Barahona MD [address] [facility] 102 [place] [address] PCP - General Internal Medicine 09/26/23 Toan Walden MD [address] [place] [address] [address] [place] [address] [email or web address] Historical LMR Provider 04/14/17 Gucci Ma MD [address] [place] [address] [address] [place] [address] [email or web address] Historical LMR Provider 04/14/17 Jose Rojas MD 10 [facility] 1 [place] [address] [email or web address] Historical LMR Provider 04/14/17 documented as of this encounter Additional Source Comments The information contained in this document represents components of the legal health record. It is not the complete legal health record.[facility]
--- OUTSIDE RECORDS SUMMARY | 2025-05-31 20:59 | XMS_ITS | Encounter Summary ---
Author Organization [facility] Address [address] [facility] [address] [place] [address] Phone Care Team Providers Care Branch Credit Counselor Name Role Phone Toan Walden MD Unavailable [phone] Gucci Ma MD Unavailable Jose Rojas MD Unavailable [phone] Li Barahona MD Primary Care Provid er Reason for Referral * MRI/CAT Scan - Closed Specialty Diagnoses / Procedures Referred By Contdayan t Referred To Contact Radiology Diagnoses Bilateral primary osteoarthritis of hip Procedures MRI Hip (Left) Alexandra Cowart PA [address] [employer] [address] [place] [address] Phone: tel: [email or web address] Referral ID Status Reason Start Date Expiration Date Visits Re quested Visits Authorized [id number] Closed 02/10/2025 02/10/2026 1 1 Encounter Details Date Type Department Care Team (Latest Contact Info) Description 02/10/2025 Transcribe Orders Virtual Department 30 [place] [address] Alexandra Cowart PA [address] [employer] [address] [place], [place] [phone] [email or web address] Bilateral primary osteoarthritis of hip (Primary Dx); Fracture of other parts of pelvis, sequela Social History Tobacco Use Types Packs/Day Years [...] Info) Description 10/05/2024 Procedure Pass Echo Lab [place] [address] [place] [address] 06/11/2025 2:00 PM EST Office Visit [facility] [address] [place] [address] 3rd Floor, [address] [place] [address] Diane Dean, WEB OPERATIONS ADMINISTRATOR 50 [place] [address] 06/14/2025 1:00 PM EST Nutrition [facility] [place] [address] Michelle Spaulding, WENDY [address] [address] 09/09/2025 1:10 PM EDT Office Visit [facility] 22 [place] [address] Elaine Tony CNP [address] [address] 09/15/2025 6:00 PM EDT Appointment [address] [address] Christie Robles MD [address] [place] [address], [facility] 203 [place] [address] [email or web address] 09/16/2025 12:30 PM EDT Appointment [facility] [address] [place] [address] Diane Dean, WEB OPERATIONS ADMINISTRATOR [address] [place] [address] 09/16/2025 2:00 PM EDT Appointment [facility] [address] [place] [address] Diane Dean, WEB OPERATIONS ADMINISTRATOR [address] [place] [address] 09/16/2025 3:00 PM EDT Appointment Echo Lab [address] [place] [address] Diane Dean, WEB OPERATIONS ADMINISTRATOR [address] [place] [address] 10/01/2025 1:20 PM EDT Office Visit [facility] [address], [address] [place] [address] Toan Walden MD 22 [facility], [address] [place] [address] 10/18/2025 2:00 PM EDT Office Visit [facility]ology [address] [place] [address] Christie Robles MD [address] [facility], [address] [place] [address] [email or web address] Scheduled Orders Name Type Priority Associated Diagnoses Orde r Schedule XR Hips with Pelvis (Bilateral) Imaging Routine Bilateral primary osteoarthritis of hip Expected: 02/16/2025, Expires: 02/16/2026 documented as of this encounter Results * MRI HIP WITHOUT CONTRAST (LEFT) (03/09/2025 4:19 PM EDT) Anatomical Region Laterality Modality Hip Left Magnetic Resonan ce 03/10/2025 2:55 PM EDT Impressions 03/10/2025 3:00 PM EDT Anterosuperior labral tear. No cartilage defect. Narrative 03/10/2025 3:00 PM EDT MRI HIP WITHOUT CONTRAST (LEFT) Referring clinician's provided indication for this examination in Epic: Outside Radiology Order; osteoarthritis TECHNIQUE: Multi-sequence, multi-planar MRI of the hip without intravenous contrast. COMPARISON: XR HIPS 2+ VW EA BILAT PLUS PELVIS ; MRI HIP WITHOUT CONTRAST (LEFT) FINDINGS: ENTIRE PELVIS SCREENING: Degenerative changes of the lower lumbar spine. No intrapelvic soft tissue abnormality. DEDICATED HIP: Bone: No fracture or osteonecrosis. Joint: There is an anterosuperior labral tear. No focal cartilage defect or subchondral edema. No effusion or synovitis. Tendons: Gluteus minimus, gluteus medius, iliopsoas, rectus femoris, and proximal hamstring tendons are intact. Soft Tissues: No soft tissue mass. No bursal collection. Procedure Note Apolonia Velazco MD - 03/10/2025 MRI HIP WITHOUT CONTRAST (LEFT) Referring clinician's provided indication for this examination in [facility]:Outside Radiology Order; osteoarthritis TECHNIQUE: Multi-sequence, multi-planar MRI of the hip without intravenouscontrast. COMPARISON: XR HIPS 2+ VW EA BILAT PLUS PELVIS ; MRI HIPWITHOUT CONTRAST (LEFT) FINDINGS: ENTIRE PELVIS SCREENING: Degenerative changes of the lower lumbar spine.No intrapelvic soft tissue abnormality. DEDICATED HIP: Bone: No fracture or osteonecrosis. Joint: There is an anterosuperior labral tear. No focal cartilage defector subchondral edema. No effusion or synovitis. Tendons: Gluteus minimus, gluteus medius, iliopsoas, rectus femoris, andproximal hamstring tendons are intact. Soft Tissues: No soft tissue mass. No bursal collection. IMPRESSION: Anterosuperior labral tear. No cartilage defect. Alexandra [facility] MR EXTREMITY Final Result documented in this encounter Visit Diagnoses Diagnosis Bilateral primary osteoarthritis of hip- Primary Fracture of other parts of pelvis, sequela Bilateral primary osteoarthritis of hip documented in this encounter Care Teams Branch Credit Counselor Relationship Specialty Start Date End Date Li Barahona MD [address] [place] [address] PCP - General Internal Medicine 09/26/23 Toan Walden MD [address] [place] [address] [email or web address] Historical LMR Provider 04/14/17 Gucci Ma MD [address] [place] [address] [email or web address] Historical LMR Provider 04/14/17 Jose Rojas MD [address] [place] [address] [employer] [id number] [email or web address] Historical LMR Provider 04/14/17 documented as of this encounter Additional Source Comments The information contained in this document represents components of the legal health record. It is not the complete legal health record.[facility]
--- OUTSIDE RECORDS SUMMARY | 2025-05-31 20:59 | XMS_ITS | Encounter Summary ---
Author Organization [facility] Address [facility] 2houses [facility] [address] [place] [address] Phone Care Team Providers Care Javascript Application Developer Name Role Phone Toan Walden MD Unavailable [phone] Gucci Ma MD Unavailable Jose Rojas MD Unavailable [phone] Vianey Pruitt NP Primary Care Provider Li Barahona MD Primary Care Provid er Encounter Details Date Type Department Care Team (Late st Contact Info) Description 04/26/2022 Procedure Pass [address] [address] Social History Tobacco Use Types Packs/Day Years [...] Info) Description 10/05/2024 Procedure Pass Echo [facility] [place] [address] [place] [address] 06/11/2025 2:00 PM EST Office Visit [facility] [address] [place] [address], [address] [place] [address] Diane Dean, HOT MILL SHEARER [address] [place] [address] 06/14/2025 1:00 PM EST Nutrition [facility] Diabetes [address] [address] Michelle Spaulding, WENDY [address] [address] 09/09/2025 1:10 PM EDT Office Visit [address] [address] Elaine Tony CNP [address] [place] [email or web address] 09/15/2025 6:00 PM EDT Appointment [facility], [address] [address] Christie Robles MD [address] [place] [address], [address] [address] [email or web address] 09/16/2025 12:30 PM EDT Appointment [facility] [address] [place] [address] Diane Dean, HOT MILL SHEARER [address] [place] [address] 09/16/2025 2:00 PM EDT Appointment [facility] [address] [place] [address] Diane Dean, HOT MILL SHEARER [address] [place] [address] 09/16/2025 3:00 PM EDT Appointment Echo Lab [address] [place] [address] Diane Dean, HOT MILL SHEARER [address] [place] [address] 10/01/2025 1:20 PM EDT Office Visit [facility] [address] [place] [address] 3rd Floor, [address] [place] [address] Toan Walden MD [address] [place] [address] 10/18/2025 2:00 PM EDT Office Visit [facility] Rheumatology [address] [place] [address] [place] [address] Christie Robles MD [address] [place] [address], [address] [place] [address] [email or web address] documented as of this encounter Visit Diagnoses Not on filedocumented in this encounter Care Teams Javascript Application Developer Relationship Specialty Start Date End Date Vianey Pruitt NP [address] [place] [address] PCP - General 02/02/21 09/25/23 Li Barahona MD [address] [address] PCP - General Internal Medicine 09/26/23 Toan Walden MD [address] [place] [address], [address] [place] [address] Historical LMR Provider 04/14/17 Gucci Ma MD [address] [place] [address], [address] [place] [address] [email or web address] Historical LMR Provider 04/14/17 Jose Rojas MD [address] [place] [address] 1 [place] [address] [email or web address] Historical LMR Provider 04/14/17 documented as of this encounter Additional Source Comments The information contained in this document represents components of the legal health record. It is not the complete legal health record.[facility]
--- OUTSIDE RECORDS SUMMARY | 2025-05-31 20:59 | XMS_ITS | Encounter Summary ---
Author Organization [facility] Address [address] [place] [address] Phone Care Team Providers Care Sales Intern Name Role Phone Toan Walden MD Unavailable [phone] Gucci Ma MD Unavailable Jose Rojas MD Unavailable [phone] Li Barahona MD Primary Care Provid er Encounter Details Date Type Department Care Team (Late st Contact Info) Description 06/10/2024 Procedure Pass [facility], [address] [place] [address] Social History Tobacco Use Types Packs/Day Years [...] PM EST documented as of this encounter Last Filed Vital Signs Vital Sign Reading Time Taken Comments Blood Pressure - - Pulse - - Temperature - - Respiratory Rate - - Oxygen Saturation - - Inhaled Oxygen Concentration - - Weight 78.9 kg (174 lb) 06/12/2024 8:21 AM EST Height 162.6 cm (5' 4 ) 06/12/2024 8:21 AM EST Body Mass Index 29.87 06/12/2024 8:21 AM EST documented in this encounter Plan of Treatment Upcoming Encounters Date Type Department Care Team (Late st Contact Info) Description 10/05/2024 Procedure Pass Echo Lab [address] [place] [address] 06/11/2025 2:00 PM EST Office Visit [facility] [address] [place] [address] 3rd Floor, [address] [place] [address] Diane Dean, STRATEGIC PARTNERSHIP SPECIALIST [address] [place] [address] 06/14/2025 1:00 PM EST Nutrition [facility] [address] [place] [address] [place] [address] Michelle Spaulding, WENDY 22 [facility], 1st [place] [address] 09/09/2025 1:10 PM EDT Office Visit [facility] Diabetes [address] [place] [address] Elaine Tony CNP [address] [place] [address], 1st [place] [address] 09/15/2025 6:00 PM EDT Appointment [facility], Bone Density - [facility] [address] [place] [address] Christie Robles MD [address] [place] [address], [address] [place] [address] [email or web address] 09/16/2025 12:30 PM EDT Appointment [facility] [address] [place] [address] Diane Dean, STRATEGIC PARTNERSHIP SPECIALIST [address] [place] [address] 09/16/2025 2:00 PM EDT Appointment [facility] [address] [place] [address] Diane Dean, STRATEGIC PARTNERSHIP SPECIALIST [address] [place] [address] 09/16/2025 3:00 PM EDT Appointment Echo Lab [address] [place] [address] Diane Dean, STRATEGIC PARTNERSHIP SPECIALIST [address] [place] [address] 10/01/2025 1:20 PM EDT Office Visit [facility] [address] [place] [address] [place] [address], [address] [place] [address] Toan Walden MD [address] [place] [address], [address] [address] 10/18/2025 2:00 PM EDT Office Visit [facility] Rheumatology [address] [place] [address] Christie Robles MD 22 [facility], [address] [place] [address] [email or web address] documented as of this encounter Visit Diagnoses Not on filedocumented in this encounter Care Teams Sales Intern Relationship Specialty Start Date End Date Li Barahona MD [address] [facility] [address] [place] [address] PCP - General Internal Medicine 09/26/23 Toan Walden MD [address] [place] [address] 301 [place] [address] [email or web address] Historical LMR Provider 04/14/17 Gucci Ma MD [address] [place] [address] 202 [place] [address] [email or web address] Historical LMR Provider 04/14/17 Jose Rojas MD 10 [facility] 1 [place] [address] [email or web address] Historical LMR Provider 04/14/17 documented as of this encounter Additional Source Comments The information contained in this document represents components of the legal health record. It is not the complete legal health record.[facility]
--- OUTSIDE RECORDS SUMMARY | 2025-05-31 20:59 | XMS_ITS | Encounter Summary ---
Author Organization [facility] Address [address] [facility] [address] [place] [address] Phone Care Team Providers Care Data Security Coordinator Name Role Phone Kody Altman MD Unavailable + Sumeet Resendiz MD Unavailable [phone] Arturo Mccoy HYDRO EXCAVATION OPERATOR Unavailable [phone] Abdi Bhandari MD Unavailable Toan Walden MD Unavailable Checo Veloz MD Unavailable [phone] Checo Viramontes DO Unavailable Jose Oliver MD Unavailable Gucci Ma MD Unavailable Jaimee Kemp DPM Unavailable Unavailable Yaniv Abdullahi HYDRO EXCAVATION OPERATOR Unavailable [phone] Richa Dejesus PA-C Unavailable [phone] Lore Turner HYDRO EXCAVATION OPERATOR Unavailable Jose Rojas MD Unavailable [phone] Kody Altman MD Primary Care Prov ider Vianey Pruitt NP Primary Care Provider Li Barahona MD Primary Care Provid er Reason for Referral * Physical Therapy - Closed Specialty Diagnoses / Procedures Referred By Contdayan t Referred To Contact Physical Therapy Diagnoses Encounter for rehabilitation Belkis Martinez MD Phone: tel: fax: [email or web address] [facility] [address] [place] [address] Phone: tel: Referral ID Status Reason Start Date Expiration Date Visits Re quested Visits Authorized [id number] Closed 08/21/2017 06/23/2018 30 30 Encounter Details Date Type Department Care Team (Late Contact Info) Description 08/21/2017 Transcribe Orders [facility] [address] [place] [address] Belkis Martinez MD [address] [place] [address] [email or web address] Encounter for rehabilitation (Primary Dx) Social History Tobacco Use Types Packs/Day Years Used Date Smoking Tobacco: Every Day Cigarettes Smokeless Tobacco: Never Comments Unknown Sex and Gender Information Value Date Recorded Sex Assigned at Female 11/29/2017 1:36 PM EDT Legal Sex Female 6:59 PM EST Gender Identity Female 11/29/2017 1:36 PM EDT Sexual Orientation Straight 07/15/2019 6: 58 PM EST documented as of this encounter Plan of Treatment Upcoming Encounters Date Type Department Care Team (Late Contact Info) Description 10/05/2024 Procedure Pass Echo Lab [place] [address] [place] [address] 06/11/2025 2:00 PM EST Office Visit [facility] [address] Floor, [address] [place] [address] Diane Dean, CHAIR CAR DRIVER [address] [place] [address] 06/14/2025 1:00 PM EST Nutrition [facility] [address] [place] [address] Michelle Spaulding, SENIAN [address] [address] 09/09/2025 1:10 PM EDT Office Visit [facility] [address] [place] [address] [place] [address] Elaine Tony CNP [address] [address] 09/15/2025 6:00 PM EDT Appointment [facility] [address] [place] [address] Christie Robles MD [address] [place] [address], [address] [place] [address] [email or web address] 09/16/2025 12:30 PM EDT Appointment [facility] [address] [place] [address] Diane Dean, CHAIR CAR DRIVER [address] [place] [address] 09/16/2025 2:00 PM EDT Appointment [facility] [address] [place] [address] Diane Dean, CHAIR CAR DRIVER [address] [place] [address] 09/16/2025 3:00 PM EDT Appointment Echo [facility] [address] [place] [address] Diane Dean, CHAIR CAR DRIVER [address] [place] [address] 10/01/2025 1:20 PM EDT Office Visit [facility] [address] Floor, [address] [place] [address] Toan Walden MD 22 [facility], [address] [place] [address] [email or web address] 10/18/2025 2:00 PM EDT Office Visit [facility] Rheumatology [address] [place] [address] Christie Robles MD 22 [facility], [address] [place] [address] [email or web address] Scheduled Referrals Name Type Priority Associated Diagnoses Orde r Schedule Ambulatory referral to [facility] Physical Therapy Outpatient Referral Routine Encounter for rehabilitation Ordered: 08/21/2017 documented as of this encounter Visit Diagnoses Diagnosis Encounter for rehabilitation- Primary documented in this encounter Care Teams Data Security Coordinator Relationship Specialty Start Date End Date Kody Altman MD [address] [place] [address] [email or web address] PCP - General Family Medicine 07/18/17 02/01/21 Vianey Pruitt NP [address] [place] [address] PCP - General 02/02/21 09/25/23 Li Barahona MD [address] [address] PCP - General Internal Medicine 09/26/23 Kody Altman MD 238 [place] [address] [email or web address] Historical LMR Provider 04/14/17 07/01/21 Sumeet Resendiz MD [address] [place] [address] Historical LMR Provider 04/14/17 2 Arturo Mccoy NP [facility] [address] [address] Historical LMR Provider 04/14/1707/01/21 Abdi Bhandari MD [address] [place] [address] 102 [place] [address] Historical LMR Provider 04/14/17 07/01/21 Toan Walden MD [address] [place] [address] Historical LMR Provider 04/14/17 Checo Veloz MD [address] [place] [address] Historical LMR Provider 04/14/17 Checo Viramontes DO [address] [place] [address] [facility], [place] [address] Historical LMR Provider 04/14/17 07/01/21 Jose Oliver MD [address] [place] [address], 2nd [place] [address] Historical LMR Provider 04/14/17 07/01/21 Gucci Ma MD 40 [facility], [address] [place] [address] [email or web address] Historical LMR Provider 04/14/17 Jaimee Kemp DPM [address] [place] [address] Historical LMR Provider 04/14/1707/01/21 Yaniv Abdullahi, YURI [address] [place] [address] 2-1 [place] [address] Historical LMR Provider 04/14/17 2 Richa Dejesus PA-C [address] [place] [address] [facility], [place] [address] [email or web address] Historical LMR Provider 04/14/17 07/01/21 Lore Turner NP [address] [place] [address] Historical LMR Provider 04/14/17 2 Jose Rojas MD [address] [place] [address] 1 [place] [address] [email or web address] Historical LMR Provider 04/14/17 documented as of this encounter Additional Source Comments The information contained in this document represents components of the legal health record. It is not the complete legal health record.[facility]
--- OUTSIDE RECORDS SUMMARY | 2025-05-31 20:59 | XMS_ITS | Encounter Summary ---
Author Organization [facility] Address [address] [employer] [facility] [address] [place] [address] Phone Care Team Providers Care Hydraulic Press In Operator Name Role Phone Toan Walden MD Unavailable [phone] Gucci Ma MD Unavailable Jose Rojas MD Unavailable [phone] Li Barahona MD Primary Care Provid er Reason for Visit * Reason Comments Medication Refill Encounter Details Date Type Department Care Team (Late st Contact Info) Description 03/03/2024 Refill [facility] [address] [place] [address] [place] [address] Teresita Alston MD [address] [facility], 1st [place] [address] [email or web address] Medication Refill Social History Tobacco Use Types [...] PM EST documented as of this encounter Progress Notes * Vicky Gilmore - 03/19/2024 3:05 PM EDT Patient has follow up scheduled with Elaine Mathias 06/09/24. * Obdulia Abrams MA - 03/03/2024 12:23 PM EDT Rx Care Gap Status - Instructions for Clinical Staff (prescriber discretion applies): > At least one medication below does not meet full criteria. Please see medication-specific renewal instructions below. > No future appt: Please schedule if appropriate. > Labs due: Remind patient to get lab tests done soon. > Orders needed: Please click BPA/SmartSet to enter. A1c - Needs order * Lipid panel - Needs order * Urine Microalbumin - Needs order * Visit Info Last visit: 08/16/2023 Kiersten Corea FNP - Urgent [facility] > Requested f/u: Not specified Upcoming visit: None ACTIONS TAKEN BY Obdulia Abrams Diabetes Rx Protocol (on Diabetes Registry) - blood-glucose sensor Criteria not met; renew for up to 3 months. Visit in the past 14 months: Yes Clinical criteria: - BMP within past year: Yes - A1c within past 6 months: No - Lipid panel within past year: No (LDL 51 on 08/01/2022) - Urine microalbumin within past year or on MEGHAN/ARB: No Lab Results Component Value Date SODIUM 134 01/23/2024 POTASSIUM 5.2 (H) 01/23/2024 CHLORIDE 99 01/23/2024 CO2 23 01/23/2024 BUN 25 (H) 01/23/2024 CREATININE 1.20 01/23/2024 EGFR 50 (L) 01/23/2024 Lab Results Component Value Date CREATININE 1.20 01/23/2024 CREATININE 1.10 11/26/2023 CREATININE 1.10 09/26/2023 EGFR 50 (L) 01/23/2024 EGFR 55 (L) 11/26/2023 EGFR 55 (L) 09/26/2023 Lab Results Component Value Date HEMOGLOBIN A1C 9.0 (H) 07/14/2019 Lab Results Component Value Date LDL 51 08/01/2022 HDL 70 08/01/2022 CARDIAC RISK RATIO 2.0 (L) 08/01/2022 TRIGLYCERIDES 112 08/01/2022 CHOLESTEROL 143 08/01/2022 Health Maintenance Labs Due / Due Soon Topic Date Due URINE MICROALBUMIN/CREATININE RATIO Never done HEMOGLOBIN A1C 10/13/2019 documented in this encounter Plan of Treatment Upcoming Encounters Date Type Department Care Team (Late st Contact Info) Description 10/05/2024 Procedure Pass Echo Lab [address] [place] [address] 06/11/2025 2:00 PM EST Office Visit [facility] [address] [place] [address] 3rd Floor, [address] [place] [address] Diane Dean, GYMNASIUM TEACHER [address] [place] [address] 06/14/2025 1:00 PM EST Nutrition [facility] [address] [place] [address] Michelle Spaulding LDN [address] [facility], 1st [place] [address] 09/09/2025 1:10 PM EDT Office Visit [facility] 22 [place] [address] Elaine Tony CNP [address] [facility], 1st [place] [address] 09/15/2025 6:00 PM EDT Appointment [facility] [address] [place] [address] Christie Robles MD [address] [facility], [address] [place] [address] [email or web address] 09/16/2025 12:30 PM EDT Appointment [facility] [address] [place] [address] Diane Dean, GYMNASIUM TEACHER [address] [place] [address] 09/16/2025 2:00 PM EDT Appointment [facility] [address] [place] [address] Diane Dean, GYMNASIUM TEACHER [address] [place] [address] 09/16/2025 3:00 PM EDT Appointment Echo Lab [address] [place] [address] Diane Dean, GYMNASIUM TEACHER [address] [place] [address] 10/01/2025 1:20 PM EDT Office Visit [facility] [address] [place] [address] [place] [address], [address] [place] [address] Toan Walden MD [address] [place] [address] 301 [place] [address] [email or web address] 10/18/2025 2:00 PM EDT Office Visit [facility] 22 [place] [address] Christie Robles MD [address] [facility], [address] [place] [address] [email or web address] documented as of this encounter Visit Diagnoses Not on filedocumented in this encounter Care Teams Hydraulic Press In Operator Relationship Specialty Start Date End Date Li Barahona MD [address] [address] PCP - General Internal Medicine 09/26/23 Toan Walden MD [address] [place] [address], [address] [address] [email or web address] Historical LMR Provider 04/14/17 Gucci Ma MD [address] [place] [address] [email or web address] Historical LMR Provider 04/14/17 Jose Rojas MD [address] [address] [email or web address] Historical LMR Provider 04/14/17 documented as of this encounter Additional Source Comments The information contained in this document represents components of the legal health record. It is not the complete legal health record.[facility]
--- OUTSIDE RECORDS SUMMARY | 2025-05-31 21:00 | XMS_ITS | Encounter Summary ---
Author Organization [facility] Address [address] [facility] [address] [place] [address] Phone Care Team Providers Care Multimedia Educational Specialist Name Role Phone Toan Walden MD Unavailable [phone] Gucci Ma MD Unavailable Jose Rojas MD Unavailable [phone] Vianey Pruitt NP Primary Care Provider Li Barahona MD Primary Care Provid er Reason for Referral * MRI/CAT Scan - Closed Specialty Diagnoses / Procedures Referred By Contac t Referred To Contact Radiology Diagnoses Right wrist pain Procedures MRI Wrist (Right) Vianey Pruitt NP [address] [place] [address] [place] [address] Phone: tel: fax: Referral ID Status Reason Start Date Expiration Date Visits Re quested Visits Authorized [id number] Closed 04/26/2022 1 1 Encounter Details Date Type Department Care Team (Late st Contact Info) Description 04/26/2022 Transcribe Orders Virtual Department 30 [place] [address] Vianey Pruitt NP [address] [place], [place] [id number] Right wrist pain (Primary Dx) Social History Tobacco Use Types [...] Info) Description 10/05/2024 Procedure Pass [place] [facility] [address] [place] [address] 06/11/2025 2:00 PM EST Office Visit [facility] [address] [place] [address] 3rd Floor, [address] [place] [address] Diane Dean, CAR SUPERVISOR [address] [place] [address] 06/14/2025 1:00 PM EST Nutrition [facility] [address] [place] [address] [place] [address] Michelle Spaulding LDN [address] [facility], 1st [place] [address] 09/09/2025 1:10 PM EDT Office Visit [facility] [address] [place] [address] [place] [address] Elaine Tony, CAR SUPERVISOR [address] [facility], 1st [place] [address] 09/15/2025 6:00 PM EDT Appointment [facility], Bone Density - [facility] [address] [place] [address] Christie Robles MD [address] [facility], [address] [place] [address] [email or web address] 09/16/2025 12:30 PM EDT Appointment [facility] [address] [place] [address] Diane Dean, CAR SUPERVISOR [address] [place] [address] 09/16/2025 2:00 PM EDT Appointment [facility] [address] [place] [address] Diane Dean, CAR SUPERVISOR [address] [place] [address] 09/16/2025 3:00 PM EDT Appointment [facility] [address] [place] [address] Diane Dean, CAR SUPERVISOR [address] [place] [address] 10/01/2025 1:20 PM EDT Office Visit [facility] [address] [place] [address], [address] [address] Toan Walden MD [address] [place] [address] 10/18/2025 2:00 PM EDT Office Visit [facility] Rhe[facility]ology [address] [place] [address] [place] [address] Christie Robles MD [address] [place] [address], [address] [address] [email or web address] documented as of this encounter Results * MRI WRIST WITHOUT CONTRAST (RIGHT) (05/22/2022 3:34 PM EST) Anatomical Region Laterality Modality Wrist Right Magnetic Resonan ce 05/22/2022 5:00 PM EST Impressions 05/22/2022 5:15 PM EST Mild tenosynovitis of the abductor pollicis longus without discrete tear. Mild bilateral marrow edema in the adjacent radial sided is probably reactive. Narrative 05/22/2022 5:15 PM EST MRI WRIST WITHOUT CONTRAST (RIGHT) TECHNIQUE: Multi-sequence, multi-planar MRI of the wrist without intravenous contrast. COMPARISON: None available FINDINGS: Ulnar Wrist: Central zone degeneration in the triangular fibrocartilage with additional involvement of the styloid and foveal attachments. Extensor carpi ulnaris tendon is normally located. Normal alignment of the distal radioulnar joint. Other Tendons: Mildly increased fluid in the abductor pollicis longus tendon sheath without discrete tear. The remaining extensor tendons are unremarkable. Flexor tendons are intact. Ligaments: Normal. Intact intrinsic and extrinsic ligaments. Normal carpal alignment. Nerves: Normal. Median and ulnar nerves are normal in size, location, and signal intensity. Bone: Mild bone marrow edema in the ulnar styloid, adjacent to the abductor pollicis longus tendon. No fracture, osteonecrosis, or focal lesion. Joints: Mild degenerative changes of the STT joint. No effusion or synovitis. No focal cartilage defect or subchondral edema. Procedure Note Vazquez Cruz MD - 05/22/2022 MRI WRIST WITHOUT CONTRAST (RIGHT) TECHNIQUE: Multi-sequence, multi-planar MRI of the wrist withoutintravenous contrast. COMPARISON: None available FINDINGS: Ulnar Wrist: Central zone degeneration in the triangular fibrocartilagewith additional involvement of the styloid and foveal attachments.Extensor carpi ulnaris tendon is normally located. Normal alignment of thedistal radioulnar joint. Other Tendons: Mildly increased fluid in the abductor pollicis longustendon sheath without discrete tear. The remaining extensor tendons areunremarkable. Flexor tendons are intact. Ligaments: Normal. Intact intrinsic and extrinsic ligaments. Normal carpalalignment. Nerves: Normal. Median and ulnar nerves are normal in size, location, andsignal intensity. Bone: Mild bone marrow edema in the ulnar styloid, adjacent to theabductor pollicis longus tendon. No fracture, osteonecrosis, or focallesion. Joints: Mild degenerative changes of the STT joint. No effusion orsynovitis. No focal cartilage defect or subchondral edema. IMPRESSION: Mild tenosynovitis of the abductor pollicis longus without discrete tear.Mild bilateral marrow edema in the adjacent radial sided is probablyreactive. us Vianey Pruitt PROTOZOOLOGIST IMG MR EXTREMITY Final Result documented in this encounter Visit Diagnoses Diagnosis Right wrist pain- Primary Pain in joint, forearm Right wrist pain Pain in joint, forearm documented in this encounter Care Teams Multimedia Educational Specialist Relationship Specialty Start Date End Date Vianey Pruitt NP [address] [place] [address] PCP - General 02/02/21 09/25/23 Li Barahona MD [address] [address] PCP - General Internal Medicine 09/26/23 Toan Walden MD [address] [place] [address] [email or web address] Historical LMR Provider 04/14/17 Gucci Ma MD [address] [place] [address] 202 [place] [address] Historical LMR Provider 04/14/17 Jose Rojas MD [address] [address] [email or web address] Historical LMR Provider 04/14/17 documented as of this encounter Additional Source Comments The information contained in this document represents components of the legal health record. It is not the complete legal health record.[facility]
--- OUTSIDE RECORDS SUMMARY | 2025-05-31 21:06 | XMS_ITS | Encounter Summary ---
Author Organization [facility] Address [address] [facility] [address] [place] [address] Phone Care Team Providers Care Fitter Type Bar And Segment Name Role Phone Kris Hoover MD Primary Care Pro vider Kody Altman MD Unavailable + Sumeet Resendiz MD Unavailable [phone] Arturo Mccoy BLOCKER AUTOMATIC Unavailable Abdi Bhandari MD Unavailable Toan Walden MD Unavailable Checo Veloz MD Unavailable Checo Viramontes DO Unavailable Jose Oliver MD Unavailable Gucci Ma MD Unavailable Jaimee Kemp DPM Unavailable Unavailable Yaniv Abdullahi BLOCKER AUTOMATIC Unavailable [phone] Richa Dejesus PA-C Unavailable Lore Turner BLOCKER AUTOMATIC Unavailable Jose Rojas MD Unavailable [phone] Kody Altman MD Primary Care Prov ider Vianey Pruitt BLOCKER AUTOMATIC Primary Care Provider Li Barahona MD Primary Care Provid er Encounter Details Date Type Department Care Team (Late st Contact Info) Description 05/17/2017 Orders Only VIRTUAL DEPARTMENT Interface Provider, Scanning Social History Tobacco Use Types Packs/Day Years Used Date Smoking Tobacco: Every Day Cigarettes Comments Unknown Sex and Gender Information Value Date Recorded Sex Assigned at Female 11/29/2017 1:36 PM EDT Legal Sex Female 6:59 PM EST Gender Identity Female 11/29/2017 1:36 PM EDT Sexual Orientation Straight 07/15/2019 6: 58 PM EST documented as of this encounter Plan of Treatment Upcoming Encounters Date Type Department Care Team (Late st Contact Info) Description 10/05/2024 Procedure Pass [place] [facility] [address] [place] [address] 06/11/2025 2:00 PM EST Office Visit [facility] [address] [place] [address] 3rd Floor, [address] [place] [address] Diane Dean, ASSEMBLER CONVERTIBLE TOP [address] [place] [address] 06/14/2025 1:00 PM EST Nutrition [facility] [address] [place] [address] [place] [address] Michelle Spaulding LDN 22 [facility], 1st [place] [address] 09/09/2025 1:10 PM EDT Office Visit [facility] [address] [place] [address] [place] [address] Elaine Tony, ASSEMBLER CONVERTIBLE TOP [facility], 1st [place] [address] 09/15/2025 6:00 PM EDT Appointment [facility], Bone Density - [facility] 30 [place] [address] Christie Robles MD [address] [place] [address], [address] [address] [email or web address] 09/16/2025 12:30 PM EDT Appointment [facility] [address] [place] [address] Diane Dean, ASSEMBLER CONVERTIBLE TOP [address] [place] [address] 09/16/2025 2:00 PM EDT Appointment [facility] [address] [place] [address] Diane Dean, ASSEMBLER CONVERTIBLE TOP [address] [place] [address] 09/16/2025 3:00 PM EDT Appointment [facility] [address] [place] [address] Diane Dean, ASSEMBLER CONVERTIBLE TOP [address] [place] [address] 10/01/2025 1:20 PM EDT Office Visit [facility] [address] [place] [address], [address] [place] [address] Toan Walden MD [address] [place] [address], [address] [address] 10/18/2025 2:00 PM EDT Office Visit [facility] Rheumatology [address] [place] [address] [place] [address] Christie Robles MD [address] [place] [address], [address] [address] [email or web address] documented as of this encounter Procedures Procedure Name Priority Date/Time Associated Diagnosis Comments OUTSIDE LAB Routine 05/17/2017 documented in this encounter Results * Outside Lab (05/17/2017) us Historical Provider LAB BLOOD BKR ORDERABLES Final Result documented in this encounter Visit Diagnoses Not on filedocumented in this encounter Care Teams Fitter Type Bar And Segment Relationship Specialty Start Date End Date Kris Hoover MD [address] [place] [address] PCP - General 12/22/13 07/17/17 Kody Altman MD [address] [place] [address] [email or web address] PCP - General Family Medicine 07/18/17 02/01/21 Vianey Pruitt NP [address] [place] [address] PCP - General 02/02/21 09/25/23 [place] [address] [address] PCP - General Internal Medicine 09/26/23 Kody Altman MD [address] [place] [address] [email or web address] Historical LMR Provider 04/14/17 07/01/21 Sumeet Resendiz MD [address] [place] [address] Historical LMR Provider 04/14/17 2 Arturo Mccoy NP [address] [facility] 100 [place] [address] Historical LMR Provider 04/14/1707/01/21 Abdi Bhandari MD [address] [place] [address], [facility] 102 [place] [address] Historical LMR Provider 04/14/17 07/01/21 Toan Walden MD [address] [place] [address] 301 [place] [address] Historical LMR Provider 04/14/17 Checo Veloz MD [address] [place] [address] Historical LMR Provider 04/14/17 Checo Viramontes DO [address] [place] [address] [facility], [place] [address] [email or web address] Historical LMR Provider 04/14/17 07/01/21 Jose Oliver MD [address] [place] [address], 2nd [place] [address] Historical LMR Provider 04/14/17 07/01/21 Gucci Ma MD [address] [place] [address] 202 [place] [address] [email or web address] Historical LMR Provider 04/14/17 Jaimee Kemp DPM [address] [place] [address] Historical LMR Provider 04/14/1707/01/21 Yaniv Abdullahi NP [address] [place] [address] 2-1 [place] [phone] Historical LMR Provider 04/14/17 2 Richa Dejesus PA-C [address] [place] [address] [facility], [place] [address] [email or web address] Historical LMR Provider 04/14/17 07/01/21 Lore Turner NP [address] [place] [address] Historical LMR Provider 04/14/17 2 Jose Rojas MD [address] [place] [address] [email or web address] Historical LMR Provider 04/14/17 documented as of this encounter Additional Source Comments The information contained in this document represents components of the legal health record. It is not the complete legal health record.[facility]
--- OUTSIDE RECORDS SUMMARY | 2025-05-31 21:06 | XMS_ITS | Encounter Summary ---
Author Organization [facility] Address [address] [facility] [address] [place] [address] Phone Care Team Providers Care Rural Sociologist Name Role Phone Toan Walden MD Unavailable [phone] Gucci Ma MD Unavailable Jose Rojas MD Unavailable [phone] Li Barahona MD Primary Care Provid er Encounter Details Date Type Department Care Team (Late st Contact Info) Description 02/28/2024 Procedure Pass [place] [facility] Daniel [address] [place], [place] [id number] Social History Tobacco Use Types Packs/Day Years [...] Info) Description 10/05/2024 Procedure Pass [place] [facility] [address] [place] [address] 06/11/2025 2:00 PM EST Office Visit [facility] [address] [place] [address] 3rd Floor, [address] [place] [address] Diane Dean, PELLETISING EXTRUDER OPERATOR [address] [place] [address] 06/14/2025 1:00 PM EST Nutrition [facility] [address] [place] [address] Michelle Spaulding LDN [address] [place] [address], [address] [place] [address] 09/09/2025 1:10 PM EDT Office Visit [facility] [address] [place] [address] [place] [address] Elaine Tony, PELLETISING EXTRUDER OPERATOR [address] [place] [address], [address] [place] [address] 09/15/2025 6:00 PM EDT Appointment [facility], Bone Density - [facility] 30 [place] [address] Christie Robles MD [address] [place] [address] [address] [email or web address] 09/16/2025 12:30 PM EDT Appointment [facility] [address] [place] [address] Diane Dean, PELLETISING EXTRUDER OPERATOR [address] [place] [address] 09/16/2025 2:00 PM EDT Appointment [facility] [address] [place] [address] Diane Dean, PELLETISING EXTRUDER OPERATOR [address] [place] [address] 09/16/2025 3:00 PM EDT Appointment [facility] [address] [place] [address] Diane Dean, PELLETISING EXTRUDER OPERATOR [address] [place] [address] 10/01/2025 1:20 PM EDT Office Visit [facility] [address] [place] [address], [address] [place] [address] Toan Walden MD [address] [place] [address], [address] [address] 10/18/2025 2:00 PM EDT Office Visit [facility] Rheumatology [address] [place] [address] [place] [address] Christie Robles MD [address] [place] [address], [address] [address] [email or web address] documented as of this encounter Visit Diagnoses Not on filedocumented in this encounter Care Teams Rural Sociologist Relationship Specialty Start Date End Date Li Barahona MD [address] [facility] 102 [place] [address] PCP - General Internal Medicine 09/26/23 Toan Walden MD [address] [place] [address] 301 [place] [address] [email or web address] Historical LMR Provider 04/14/17 Gucci Ma MD [address] [place] [address] 202 [place] [address] [email or web address] Historical LMR Provider 04/14/17 Jose Rojas MD 10 [facility] 1 [place] [address] [email or web address] Historical LMR Provider 04/14/17 documented as of this encounter Additional Source Comments The information contained in this document represents components of the legal health record. It is not the complete legal health record.[facility]
--- OUTSIDE RECORDS SUMMARY | 2025-05-31 21:06 | XMS_ITS | Encounter Summary ---
Author Organization [facility] Address [address] [facility] [address] [place] [address] Phone Care Team Providers Care Web Services Professional Name Role Phone Kody Altman MD Unavailable + Sumeet Resendiz MD Unavailable [phone] Arturo Mccoy TAKE OFF WORKER Unavailable Abdi Bhandari MD Unavailable Toan Walden MD Unavailable [phone] Checo Veloz MD Unavailable Checo Viramontes DO Unavailable [phone] Jose Oliver MD Unavailable [phone] Gucci Ma MD Unavailable Jaimee Kemp DPM Unavailable Unavailable Yaniv Abdullahi TAKE OFF WORKER Unavailable Richa Dejesus PA-C Unavailable [phone] Lore Turner TAKE OFF WORKER Unavailable Jose Rojas MD Unavailable [phone] Vianey Pruitt TAKE OFF WORKER Primary Care Provider Li Barahona MD Primary Care Provid er Encounter Details Date Type Department Care Team (Late st Contact Info) Description 06/22/2021 Ancillary Orders [facility],Outside Imaging 30 [place], [place] [phone] System, Provider Not In, [place] [address] Social History Tobacco Use Types Packs/Day Years [...] Info) Description 10/05/2024 Procedure Pass [place] [facility] [address] [place] [address] 06/11/2025 2:00 PM EST Office Visit [facility] [address] [place] [address] 3rd Floor, [address] [place] [address] Diane Dean, COMPUTER GRAPHIC DESIGNER [address] [place] [address] 06/14/2025 1:00 PM EST Nutrition [facility] [address] [place] [address] [place] [address] Michelle Spaulding LDN [address] [place] [address], [address] [place] [address] 09/09/2025 1:10 PM EDT Office Visit [facility] [address] [place] [address] [place] [address] Elaine Tony, ELISA 22 [facility], [address] [place] [address] 09/15/2025 6:00 PM EDT Appointment [facility], Bone [address] [address] Christie Robles MD [address] [place] [address], [address] [place] [address] [email or web address] 09/16/2025 12:30 PM EDT Appointment [facility] [address] [place] [address] Diane Dean, COMPUTER GRAPHIC DESIGNER [address] [place] [address] 09/16/2025 2:00 PM EDT Appointment [facility] [address] [place] [address] Diane Dean, COMPUTER GRAPHIC DESIGNER [address] [place] [address] 09/16/2025 3:00 PM EDT Appointment [facility] [address] [place] [address] Diane Dean, COMPUTER GRAPHIC DESIGNER [address] [place] [address] 10/01/2025 1:20 PM EDT Office Visit [facility] [address] [place] [address] [place] [address], [address] [place] [address] Toan Walden MD [address] [place] [address], [address] [address] 10/18/2025 2:00 PM EDT Office Visit [facility] Rheumatology [address] [place] [address] [place] [address] Christie Robles MD [address] [place] [address], [address] [place] [address] [email or web address] documented as of this encounter Results * CT Abdomen/Pelvis Outside (No Interpretation) (05/26/2021 12:00 AM EST) Narrative SYSTEMGENERATED, DOCUMENTATION - 06/22/2021 9:37 AM EST This study is for PACS storage only and not for interpretation. us Provider Not In System PhD IMG OUTSIDE IMAGING W /OUT INTERPRETATION Final Result documented in this encounter Visit Diagnoses Not on filedocumented in this encounter Care Teams Web Services Professional Relationship Specialty Start Date End Date Vianey Pruitt NP 238 [place] [address] PCP - General 02/02/21 09/25/23 [facility] [address] [address] PCP - General Internal Medicine 09/26/23 Kody Altman MD 238 [place] [address] [email or web address] Historical LMR Provider 04/14/17 07/01/21 Sumeet Resendiz MD [address] [place] [address] Historical LMR Provider 04/14/17 2 Arturo Mccoy NP [address] [place] [address] [email or web address] Historical LMR Provider 04/14/1707/01/21 Abdi Bhandari MD [address] [place] [address] Historical LMR Provider 04/14/17 07/01/21 Toan Walden MD [address] [place] [address], [address] [place] [address] Historical LMR Provider 04/14/17 Checo Veloz MD [address] [place] [address] Historical LMR Provider 04/14/17 Checo Viramontes DO [address] [place] [address] [facility], [place] [address] [email or web address] Historical LMR Provider 04/14/17 07/01/21 Jose Oliver MD [address] [place] [address], 2nd [place] [address] Historical LMR Provider 04/14/17 07/01/21 Gucci Ma MD [address] [place] [address] 202 [place] [address] Historical LMR Provider 04/14/17 Jaimee Kemp DPM [address] [place] [address] Historical LMR Provider 04/14/1707/01/21 Yaniv Abdullahi, YURI [address] [place] [address] 2-1 [place] [address] Historical LMR Provider 04/14/17 2 Richa Dejesus PA-C [address] [place] [address] [facility], [facility] [place] [address] [email or web address] Historical LMR Provider 04/14/17 07/01/21 Lore Turner NP [address] [place] [address] Historical LMR Provider 04/14/17 2 Jose Rojas MD [address] [place] [address] [email or web address] Historical LMR Provider 04/14/17 documented as of this encounter Additional Source Comments The information contained in this document represents components of the legal health record. It is not the complete legal health record.[facility]
--- OUTSIDE RECORDS SUMMARY | 2025-05-31 21:06 | XMS_ITS | Encounter Summary ---
Author Organization [facility] Address [address] [facility] [address] [place] [address] Phone Care Team Providers Care Manager Operations Name Role Phone Toan Waldne MD Unavailable [phone] Gucci Ma MD Unavailable Jose Rojas MD Unavailable [phone] Li Barahona MD Primary Care Provid er Encounter Details Date Type Department Care Team (Late st Contact Info) Description 02/10/2025 Procedure Pass [facility], [facility] [address] [place] [address] Social History Tobacco Use Types Packs/Day Years [...] Description 10/05/2024 Procedure Pass Echo Lab [address] [place] [address] 06/11/2025 2:00 PM EST Office Visit [facility] [address] [place] [address] 3rd Floor, [address] [place] [address] Diane Dean, EYELET PUNCH OPERATOR [address] [place] [address] 06/14/2025 1:00 PM EST Nutrition [facility] [address] [place] [address] Michelle Spaulding, WENDY [address] [place] [address], [address] [place] [address] 09/09/2025 1:10 PM EDT Office Visit [facility] [address] [place] [address] [place] [address] Elaine Tony, EYELET PUNCH OPERATOR [address] [place] [address], [address] [place] [email or web address] 09/15/2025 6:00 PM EDT Appointment [facility], Bone [facility] - [facility] [address] [place] [address] Christie Robles MD [address] [place] [address], [address] [place] [address] [email or web address] 09/16/2025 12:30 PM EDT Appointment [facility] [address] [place] [address] Diane Dean, EYELET PUNCH OPERATOR [address] [place] [address] 09/16/2025 2:00 PM EDT Appointment [facility] [address] [place] [address] Diane Dean, EYELET PUNCH OPERATOR [address] [place] [address] 09/16/2025 3:00 PM EDT Appointment Echo [facility] [address] [address] Diane Dean, EYELET PUNCH OPERATOR [address] [place] [address] 10/01/2025 1:20 PM EDT Office Visit [facility] [address] [place] [address], [address] [address] Toan Walden MD [address] [place] [address], [address] [address] 10/18/2025 2:00 PM EDT Office Visit [facility] Rheumatology [address] [place] [address] Christie Robles MD [address] [place] [address], [address] [address] [email or web address] documented as of this encounter Visit Diagnoses Not on filedocumented in this encounter Care Teams Manager Operations Relationship Specialty Start Date End Date Li Barahona MD [address] [facility] [address] [place] [address] PCP - General Internal Medicine 09/26/23 Toan Walden MD [address] [place] [address] [address] [place] [address] [email or web address] Historical LMR Provider 04/14/17 Gucci Ma MD [address] [place] [address] [address] [place] [address] [email or web address] Historical LMR Provider 04/14/17 Jose Rojas MD [address] [address] [email or web address] Historical LMR Provider 04/14/17 documented as of this encounter Additional Source Comments The information contained in this document represents components of the legal health record. It is not the complete legal health record.[facility]
--- OUTSIDE RECORDS SUMMARY | 2025-05-31 21:06 | XMS_ITS | Encounter Summary ---
Author Organization [facility] Address [address] [facility] [address] [place] [address] Phone Care Team Providers Care Teenage Program Director Name Role Phone Kris Hoover MD Primary Care Pro vider Kody Altman MD Unavailable + Sumeet Resendiz MD Unavailable [phone] Arturo Mccoy TRIM SETTER HELPER Unavailable Abdi Bhandari MD Unavailable Toan Walden MD Unavailable Checo Veloz MD Unavailable Checo Viramontes DO Unavailable Jose Oliver MD Unavailable Gucci Ma MD Unavailable Jaimee Kemp DPM Unavailable Unavailable Yaniv Abdullahi TRIM SETTER HELPER Unavailable Richa Dejesus PA-C Unavailable Lore Turner TRIM SETTER HELPER Unavailable Jose Rojas MD Unavailable [phone] Kody Altman MD Primary Care Prov ider Vianey Pruitt TRIM SETTER HELPER Primary Care Provider Li Barahona MD Primary Care Provid er Encounter Details Date Type Department Care Team (Late st Contact Info) Description 04/13/2017 Ancillary Orders Virtual Department [address] [place] [address] Anil De La Cruz MD [address] [facility], [address] [place] [address] Personal history of urinary tract infection; Chronic bladder pain Social History Tobacco Use Types Packs/Day Years [...] Description 10/05/2024 Procedure Pass Echo Lab [address] [place] [address] 06/11/2025 2:00 PM EST Office Visit [facility] [address] [place] [address] 3rd Floor, [address] [place] [address] Diane Dean, NOODLE MAKER [address] [place] [address] 06/14/2025 1:00 PM EST Nutrition [facility] [address] [place] [address] Michelle Spaulding, WENDY [address] [place] [address], [address] [place] [address] 09/09/2025 1:10 PM EDT Office Visit [facility] [address] [place] [address] Elaine Tony, NOODLE MAKER [address] [place] [address], [address] [place] [address] 09/15/2025 6:00 PM EDT Appointment [facility], Bone [facility] - [address] [address] Christie Robles MD [address] [place] [address], [address] [place] [address] [email or web address] 09/16/2025 12:30 PM EDT Appointment [facility] [address] [place] [address] Diane Dean, NOODLE MAKER [address] [place] [address] 09/16/2025 2:00 PM EDT Appointment [facility] [address] [place] [address] Diane Dean, NOODLE MAKER [address] [place] [address] 09/16/2025 3:00 PM EDT Appointment Echo Lab [address] [place] [address] Diane Dean, NOODLE MAKER [address] [place] [address] 10/01/2025 1:20 PM EDT Office Visit [facility] [address] [place] [address] [place] [address], [address] [place] [address] Toan Walden MD [address] [place] [address], [address] [place] [address] 10/18/2025 2:00 PM EDT Office Visit [facility] Rheumatology [address] [place] [address] [place] [address] Christie Robles MD [address] [place] [address], [address] [place] [address] [email or web address] documented as of this encounter Results * US Kidneys and Bladder (04/23/2017 9:58 AM EDT) Anatomical Region Laterality Modality Abdomen, Kidney Ultrasound 04/23/2017 9:54 AM EDT Impressions 04/23/2017 10:01 AM EDT No evidence of obstructive uropathy or calculi. No explanation for pain. Small cysts with benign characteristics within the left kidney. The urinary bladder is poorly evaluated due to underdistention but no definite bladder abnormalities are demonstrated. POS [id number] Narrative 04/23/2017 10:01 AM EDT HISTORY: UTI, suprapubic pain. COMPARISON: CT abdomen 02/23/2013. FINDINGS: Right Kidney: The kidney is normal in size and echogenicity. It measures 11.6 cm in the long axis. No evidence of masses, calculi, pelvocaliectasis or significant cortical thinning. Left Kidney: Kidney is normal in size and measures 10.2 cm in the long axis. No evidence of calculi or pelvocaliectasis. Exophytic anechoic cyst which enhances sound posteriorly within the lower pole measuring 7 mm in maximal diameter. There is a second cyst with the same characteristics in the lower pole measuring 6 mm in maximal diameter. A cyst in the interpolar region adjacent to the renal pelvis demonstrated on prior CT is visible by ultrasound and measures 1.8 cm in maximal diameter. No evidence of solid masses. No evidence of significant cortical thinning. Bladder: The urinary bladder is underdistended prior to voiding and poorly evaluated. Prevoid bladder volume measures 132 cc. There are bilateral ureteral jets. Negligible post void residual of 4 cc. Procedure Note Attila Lozano MD - 04/23/2017 HISTORY: UTI, suprapubic pain. COMPARISON: CT abdomen 02/23/2013. FINDINGS: Right Kidney: The kidney is normal in size and echogenicity. It veubltdn29.6 cm in the long axis. No evidence of masses, calculi,pelvocaliectasis or significant cortical thinning. Left Kidney: Kidney is normal in size and measures 10.2 cm in the longaxis. No evidence of calculi or pelvocaliectasis. Exophytic anechoiccyst which enhances sound posteriorly within the lower pole measuring 7 mmin maximal diameter. There is a second cyst with the same characteristicsin the lower pole measuring 6 mm in maximal diameter. A cyst in theinterpolar region adjacent to the renal pelvis demonstrated on prior CT isvisible by ultrasound and measures 1.8 cm in maximal diameter. Noevidence of solid masses. No evidence of significant cortical thinning. Bladder: The urinary bladder is underdistended prior to voiding and poorlyevaluated. Prevoid bladder volume measures 132 cc. There are bilateralureteral jets. Negligible post void residual of 4 cc. IMPRESSION: No evidence of obstructive uropathy or calculi. No explanation for pain.Small cysts with benign characteristics within the left kidney. Theurinary bladder is poorly evaluated due to underdistention but no definitebladder abnormalities are demonstrated. POS [id number] us Anil De La Cruz MD [facility] RENAL Final Result documented in this encounter Visit Diagnoses Diagnosis Personal history of urinary tract infection Chronic bladder pain Personal history of urinary tract infection Chronic bladder pain documented in this encounter Care Teams Teenage Program Director Relationship Specialty Start Date End Date Kris Hoover MD [address] [place] [address] PCP - General 12/22/13 07/17/17 Kody Altman MD [address] [place] [address] [email or web address] PCP - General Family Medicine 07/18/17 02/01/21 Vianey Pruitt NP [address] [place] [address] PCP - General 02/02/21 09/25/23 [place] [address] [address] PCP - General Internal Medicine 09/26/23 Kody Altman MD [address] [place] [address] [email or web address] Historical LMR Provider 04/14/17 07/01/21 Sumeet Resendiz MD [address] [place] [address] Historical LMR Provider 04/14/17 2 Arturo cMcoy NP [address] [place] [address] Historical LMR Provider 04/14/1707/01/21 Abdi Bhandari MD [address] [place] [address] Historical LMR Provider 04/14/17 07/01/21 Toan Walden MD [address] [place] [address] Historical LMR Provider 04/14/17 Checo Veloz MD [address] [place] [address] Historical LMR Provider 04/14/17 Checo Viramontes DO [address] [place] [address] [facility] [place] [address] Historical LMR Provider 04/14/17 07/01/21 Jose Oliver MD [address] [place] [address], 2nd [place] [address] Historical LMR Provider 04/14/17 07/01/21 Gucci Ma MD [address] [place] [address] 202 [place] [address] Historical LMR Provider 04/14/17 Jaimee Kemp DPM [address] [place] [address] Historical LMR Provider 04/14/1707/01/21 Yaniv Abdullahi NP [address] [place] [address] [address] [place] [address] Historical LMR Provider 04/14/17 2 Richa Dejesus PA-C [address] [place] [address] [facility] [place] [address] Historical LMR Provider 04/14/17 07/01/21 Lore Turner NP [address] [place] [address] Historical LMR Provider 04/14/17 2 Jose Rojas MD [address] [place] [address] 1 [place] [address] [email or web address] Historical LMR Provider 04/14/17 documented as of this encounter Additional Source Comments The information contained in this document represents components of the legal health record. It is not the complete legal health record.[facility]
--- OUTSIDE RECORDS SUMMARY | 2025-05-31 21:07 | XMS_ITS | Encounter Summary ---
Author Organization [facility] Address [address] [facility] [address] [place] [address] Phone Care Team Providers Care Blade Changer Name Role Phone Kris Hoover MD Primary Care Pro vider Kdoy Altman MD Unavailable + Sumeet Resendiz MD Unavailable [phone] Arturo Mccoy SOFTWARE QUALITY AUTOMATION ENGINEER Unavailable Abdi Bhandari MD Unavailable Toan Walden MD Unavailable Checo Veloz MD Unavailable Checo Viramontes DO Unavailable Jose Oliver MD Unavailable Gucci Ma MD Unavailable Jaimee Kemp DPM Unavailable Unavailable Yaniv Abdullahi SOFTWARE QUALITY AUTOMATION ENGINEER Unavailable Richa Dejesus PA-C Unavailable Lore Turner SOFTWARE QUALITY AUTOMATION ENGINEER Unavailable Jose Rojas MD Unavailable [phone] Kody Altman MD Primary Care Prov ider Vianey Pruitt SOFTWARE QUALITY AUTOMATION ENGINEER Primary Care Provider Li Barahona MD Primary Care Provid er Reason for Referral * Physical Therapy (Routine) - Closed Specialty Diagnoses / Procedures Referred By Nitish mae Referred To Contact Physical Therapy Diagnoses Encounter for rehabilitation Kody Altman MD Phone: tel: fax: [email or web address] [facility] [address] [place] [address] Phone: tel: Referral ID Status Reason Start Date Expiration Date Visits Re quested Visits Authorized [id number] Closed 05/13/2017 05/13/2018 20 Encounter Details Date Type Department Care Team (Late st Contact Info) Description 05/13/2017 Transcribe Orders [facility] [address] [place] [address] Kody Altman MD [address] [place] [phone] [email or web address] Encounter for rehabilitation (Primary Dx) Social History [...] Info) Description 10/05/2024 Procedure Pass Echo [facility] [place] [address] 06/11/2025 2:00 PM EST Office Visit [facility] [address] Floor, [address] [place] [address] Diane Dean, DESKTOP ARCHITECT [address] [place] [address] 06/14/2025 1:00 PM EST Nutrition [facility] [address] [place] [address] Michelle Spaulding LDN [address] [place] [address] [address] 09/09/2025 1:10 PM EDT Office Visit [facility] [address] [place] [address] Elaine Tony, ELISA [address] [place] [address] 09/15/2025 6:00 PM EDT Appointment [facility], Bone [facility] - [address] [address] Christie Robles MD [address] [facility] [address] [place] [address] [email or web address] 09/16/2025 12:30 PM EDT Appointment [facility] [address] [place] [address] Diane Dean, DESKTOP ARCHITECT [address] [place] [address] 09/16/2025 2:00 PM EDT Appointment [facility] [address] [place] [address] Diane Dean, ELISA [address] [place] [address] 09/16/2025 3:00 PM EDT Appointment Echo Lab [address] [place] [address] Diane Dean, DESKTOP ARCHITECT [address] [place] [address] 10/01/2025 1:20 PM EDT Office Visit [facility] [address]rd Floor, [address] [place] [address] Toan Walden MD [address] [facility], [address] [place] [address] 10/18/2025 2:00 PM EDT Office Visit [facility] Rheumatology [address] [place] [address] Christie Robles MD [address] [facility], [address] [place] [address] [email or web address] Scheduled Referrals Name Type Priority Associated Diagnoses Orde r Schedule Ambulatory referral to [facility] Physical Therapy Outpatient Referral Routine Encounter for rehabilitation Ordered: 05/13/2017 documented as of this encounter Visit Diagnoses Diagnosis Encounter for rehabilitation- Primary documented in this encounter Care Teams Blade Changer Relationship Specialty Start Date End Date Kris Hoover MD [address] [place] [address] PCP - General 12/22/13 07/17/17 Kody Altman MD [address] [place] [phone] [email or web address] PCP - General Family Medicine 07/18/17 02/01/21 Vianey Pruitt NP [address] [place] [address] PCP - General 02/02/21 09/25/23 Li Barahona MD [address] [address] PCP - General Internal Medicine 09/26/23 Kody Altman MD 238 [place] [address] [email or web address] Historical LMR Provider 04/14/17 07/01/21 Sumeet Resendiz MD [address] [place] [address] Historical LMR Provider 04/14/17 2 Arturo Mccoy NP [address] [address] Historical LMR Provider 04/14/1707/01/21 Abdi Bhandari MD [address] [place] [address] Historical LMR Provider 04/14/17 07/01/21 Toan Walden MD [address] [place] [address] Historical LMR Provider 04/14/17 Checo Veloz MD [address] [place] [address] Historical LMR Provider 04/14/17 Checo Viramontes DO [address] [place] [address] [facility], [place] [address] Historical LMR Provider 04/14/17 07/01/21 Jose Oliver MD [address] [place] [address] [address] [place] [address] [email or web address] Historical LMR Provider 04/14/17 07/01/21 Gucci Ma MD [address] [place] [address] 202 [place] [address] [email or web address] Historical LMR Provider 04/14/17 Jaimee Kemp DPM [address] [place] [address] Historical LMR Provider 04/14/1707/01/21 Yaniv Abdullahi NP [address] [place] [address] [address] [place] [phone] Historical LMR Provider 04/14/17 2 Richa Dejesus PA-C [address] [place] [address] [facility], [place] [address] [email or web address] Historical LMR Provider 04/14/17 07/01/21 Lore Turner NP [address] [place] [address] Historical LMR Provider 04/14/17 2 Jose Rojas MD [address] [place] [address] [email or web address] Historical LMR Provider 04/14/17 documented as of this encounter Additional Source Comments The information contained in this document represents components of the legal health record. It is not the complete legal health record.[facility]
--- NOTE | 2025-06-01 07:35 | MHC.SHP ---
Pre-Procedural Eval Section A - 24 Hr Update-Section A only Date of Service: 06/01/25 Section B - Complete if H&P > 30 days Chief Complaint: screening Details of Present Illness: see H&P no changes Relevant Family History (Specify if Yes): No Relevant Social History: None Present Medications: see Short Stay Collaborative assessment Medical History: No relevant PMH History of Previous Operations: No relevant previous surgery Allergies: Allergies Allergy/AdvReac Type Severity Reaction Status Date / Time fluconazole (From Diflucan) Allergy Severe Rash Verified 02/11/25 14:08 levofloxacin (From Levaquin) Allergy Mild hypoglycemi Verified 02/11/25 14:08 c Review of Systems Sugical H&P ROS: Negative: Constitution, Cardiovascular, Respiratory, Neurological, Psychiatric, Hem-Onc, Allergic/Immunologic, Gastrointestinal, Genitourinary, Musculoskeletal, Integumentary, Endocrine and Eyes/Ears/Nose/Throat Exam Surgical H&P Exam: Normal: HEENT, Normal: Heart, Normal: Lungs, Normal: Extremities, Normal: Abdomen, Normal: Skin and Normal: Neurological Plan Diagnosis/Plan: Unchanged I have reviewed the history and physical and performed a pertinent physical examination on my patient. No changes have occurred unless specified. Time Spent With Patient Time: Total time managing care of this patient today ____ minutes.
[2025-06-01 08:28] VITALS: BP 186/63; PULSE 104; RESP 16; TEMP 36.1; O2SAT 96
[2025-06-01] MEDS: Lactated Ringers 1,000 ML 100 ML IVCONT (08:30)
--- NOTE | 2025-06-01 08:39 | HO.ANESPROP2 ---
Documented by User: Meredith Chapa NP 05/31/25 15:19 HPI - Anesthesia Eval Consult details Narrative: 70 yr old female for colonoscopy s/p Appendectomy with GA 12/2024, ETT 7 Appy case was reviewed with LM and SG prior to for dx. Talked to pt 05/31/25, she denies recent CP or SOB with daily activities. 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) History of abdominal surgery (Acute) Arthritis (Acute) COPD (chronic obstructive pulmonary disease) (Acute) History of bladder suspension procedure (Acute) Carcinoid tumor of stomach (Acute) Diabetes (Acute) Hypercholesteremia (Acute) Hypertension (Acute) Past Medical History Medical History (Updated 05/28/25 @ 14:04 by Jessica Herring RN) CAD (coronary artery disease) Aortic stenosis Hypercholesteremia Diabetes Hypertension Carcinoid tumor of stomach Family History Family history of problems with anesthesia: No Surgical History Surgical History (Updated 05/28/25 @ 14:04 by Jessica Herring RN) Hx of heart artery stent History of laparoscopic appendectomy (01/07/25) History of bladder suspension procedure H/O neck surgery Hx of colonoscopy (07/31/18) History of Problems with Anesthesia: No Social History Social History Patient Tobacco Use Status: Current everyday Tobacco user Tobacco use type: Cigarette Cigarettes Per Day: 10 Use of substances other than those prescribed or required for medical reasons: No Advance Directives: No Advance Directives Information Provided: Yes Meds Allergies Allergy/AdvReac Type Severity Reaction Status Date / Time fluconazole (From Diflucan) Allergy Severe Rash Verified 02/11/25 14:08 levofloxacin (From Levaquin) Allergy Mild hypoglycemi Verified 02/11/25 14:08 c Home Medications ?Medication ?Instructions ?Recorded ?Confirmed ?Last Taken ?Type alprazolam 1 mg tablet 1 mg PO DAILY 01/06/25 05/28/25 Unknown History aspirin 81 mg tablet 81 mg PO DAILY 01/06/25 05/28/25 Unknown History cetirizine 10 mg tablet 10 mg PO DAILY 01/06/25 05/28/25 Unknown History cilostazol 100 mg tablet 100 mg PO BID 01/06/25 05/28/25 Unknown History diphenoxylate-atropine 2.5 1 tab PO QID PRN diarrhea 01/06/25 05/28/25 Unknown History mg-0.025 mg tablet ezetimibe 10 mg tablet 10 mg PO DAILY 01/06/25 05/28/25 Unknown History fluticasone furoate 50 1 inh inhalation DAILY 01/06/25 05/28/25 01/07/25 History mcg-vilanterol 25 mcg/dose inhalation powder (Breo Ellipta) gabapentin 300 mg capsule 300 mg PO TID 01/06/25 05/28/25 01/07/25 History hydrochlorothiazide 12.5 mg tablet 12.5 mg PO DAILY 01/06/25 05/28/25 Unknown History hydroxyzine HCl 50 mg tablet 50 mg PO BEDTIME 01/06/25 05/28/25 Unknown History leflunomide 20 mg tablet 20 mg PO DAILY 01/06/25 05/28/25 Unknown History lorazepam 0.5 mg tablet 0.5 mg PO Q8H PRN anxiety 01/06/25 05/28/25 Unknown History metoprolol succinate 50 mg 50 mg PO DAILY 01/06/25 05/28/25 01/07/25 History tablet,extended release 24 hr montelukast 10 mg tablet 10 mg PO BEDTIME 01/06/25 05/28/25 Unknown History oxybutynin chloride 10 mg 10 mg PO DAILY 01/06/25 05/28/25 Unknown History tablet,extended release 24 hr oxybutynin chloride 5 mg tablet 5 mg PO DAILY 01/06/25 01/06/25 Unknown History pantoprazole 40 mg tablet,delayed 40 mg PO DAILY 01/06/25 05/28/25 01/07/25 History release primidone 50 mg tablet 50 mg PO TID 01/06/25 05/28/25 01/07/25 History primidone 50 mg tablet 150 mg PO BEDTIME 01/06/25 05/28/25 Unknown History rosuvastatin 40 mg tablet 40 mg PO DAILY 01/06/25 05/28/25 Unknown History trazodone 100 mg tablet 100 mg PO BEDTIME PRN Insomnia 01/06/25 05/28/25 Unknown History umeclidinium 62.5 mcg/actuation 1 inh inhalation DAILY 01/06/25 05/28/25 01/07/25 History blister powder for inhalation (Incruse Ellipta) amlodipine 10 mg tablet 10 mg PO DAILY 01/07/25 05/28/25 Unknown History fluticasone furoate 200 1 ea inhalation DAILY 01/07/25 05/28/25 01/07/25 History mcg-vilanterol 25 mcg/dose inhalation powder (Breo Ellipta) insulin glargine 100 unit/mL (3 5 - 18 unit subcut TIDAC 01/07/25 05/28/25 01/06/25 History mL) subcutaneous pen (Basaglar KwikPen U-100 Insulin) insulin glargine-yfgn 100 unit/mL 30 unit subcut DAILY 01/07/25 05/28/25 01/06/25 History (3 mL) subcutaneous pen Exam Narrative Narrative: ECHO 08/2024 EKG 12/2024 Vent. Rate : 70 BPM Atrial Rate : 70 BPM P-R Int : 190 ms QRS Dur : 94 ms QT Int : 402 ms P-R-T Axes : 49 -14 46 degrees QTcB Int : 434 ms Normal sinus rhythm Moderate voltage criteria for LVH, may be normal variant ( R in aVL , [place] product ) Septal infarct , age undetermined Abnormal ECG No previous ECGs available Nuclear stress Test 10/30/23 Myocardial perfusion stress test imaging report- normal No significant myocardial perfusion defects were seen at stress and at rest images Normal left ventricular systolic function. LVEF 56% No ischemia or infarction seen. Assessment and Plan Final Anesthetic Review Family History of Problems with Anesthesia: No History of Problems with Anesthesia: No Documented by User: Joy Mills DO 06/01/25 08:42 PMF Past Medical History Medical History (Updated 05/28/25 @ 14:04 by Jessica Herring RN) CAD (coronary artery disease) Aortic stenosis Hypercholesteremia Diabetes Hypertension Carcinoid tumor of stomach Family History Family history of problems with anesthesia: No Surgical History Surgical History (Updated 05/28/25 @ 14:04 by Jessica Herring RN) Hx of heart artery stent History of laparoscopic appendectomy (01/07/25) History of bladder suspension procedure H/O neck surgery Hx of colonoscopy (07/31/18) History of Problems with Anesthesia: No Social History Social History Patient Tobacco Use Status: Current everyday Tobacco user Tobacco use type: Cigarette Cigarettes Per Day: 10 Use of substances other than those prescribed or required for medical reasons: No Advance Directives: No Advance Directives Information Provided: Yes Meds Allergies Allergy/AdvReac Type Severity Reaction Status Date / Time fluconazole (From Diflucan) Allergy Severe Rash Verified 02/11/25 14:08 levofloxacin (From Levaquin) Allergy Mild hypoglycemi Verified 02/11/25 14:08 c Home Medications ?Medication ?Instructions ?Recorded ?Confirmed ?Last Taken ?Type alprazolam 1 mg tablet 1 mg PO DAILY 01/06/25 05/28/25 Unknown History aspirin 81 mg tablet 81 mg PO DAILY 01/06/25 05/28/25 Unknown History cetirizine 10 mg tablet 10 mg PO DAILY 01/06/25 05/28/25 Unknown History cilostazol 100 mg tablet 100 mg PO BID 01/06/25 05/28/25 Unknown History diphenoxylate-atropine 2.5 1 tab PO QID PRN diarrhea 01/06/25 05/28/25 Unknown History mg-0.025 mg tablet ezetimibe 10 mg tablet 10 mg PO DAILY 01/06/25 05/28/25 Unknown History fluticasone furoate 50 1 inh inhalation DAILY 01/06/25 05/28/25 01/07/25 History mcg-vilanterol 25 mcg/dose inhalation powder (Breo Ellipta) gabapentin 300 mg capsule 300 mg PO TID 01/06/25 05/28/25 01/07/25 History hydrochlorothiazide 12.5 mg tablet 12.5 mg PO DAILY 01/06/25 05/28/25 Unknown History hydroxyzine HCl 50 mg tablet 50 mg PO BEDTIME 01/06/25 05/28/25 Unknown History leflunomide 20 mg tablet 20 mg PO DAILY 01/06/25 05/28/25 Unknown History lorazepam 0.5 mg tablet 0.5 mg PO Q8H PRN anxiety 01/06/25 05/28/25 Unknown History metoprolol succinate 50 mg 50 mg PO DAILY 01/06/25 05/28/25 01/07/25 History tablet,extended release 24 hr montelukast 10 mg tablet 10 mg PO BEDTIME 01/06/25 05/28/25 Unknown History oxybutynin chloride 10 mg 10 mg PO DAILY 01/06/25 05/28/25 Unknown History tablet,extended release 24 hr oxybutynin chloride 5 mg tablet 5 mg PO DAILY 01/06/25 01/06/25 Unknown History pantoprazole 40 mg tablet,delayed 40 mg PO DAILY 01/06/25 05/28/25 01/07/25 History release primidone 50 mg tablet 50 mg PO TID 01/06/25 05/28/25 01/07/25 History primidone 50 mg tablet 150 mg PO BEDTIME 01/06/25 05/28/25 Unknown History rosuvastatin 40 mg tablet 40 mg PO DAILY 01/06/25 05/28/25 Unknown History trazodone 100 mg tablet 100 mg PO BEDTIME PRN Insomnia 01/06/25 05/28/25 Unknown History umeclidinium 62.5 mcg/actuation 1 inh inhalation DAILY 01/06/25 05/28/25 01/07/25 History blister powder for inhalation (Incruse Ellipta) amlodipine 10 mg tablet 10 mg PO DAILY 01/07/25 05/28/25 Unknown History fluticasone furoate 200 1 ea inhalation DAILY 01/07/25 05/28/25 01/07/25 History mcg-vilanterol 25 mcg/dose inhalation powder (Breo Ellipta) insulin glargine 100 unit/mL (3 5 - 18 unit subcut TIDAC 0705/28/25 01/06/25 History mL) subcutaneous pen (Basaglar KwikPen U-100 Insulin) insulin glargine-yfgn 100 unit/mL 30 unit subcut DAILY 01/07/25 05/28/25 01/06/25 History (3 mL) subcutaneous pen Exam Exam Date and Time: 06/01/25 0839 Height,Weight and Vital Signs: Height 5 ft 4 in Weight 79.4 kg Vital Signs Temperature 96.9 F 06/01/25 08:28 Pulse Rate 104 H 06/01/25 08:28 Respiratory Rate 16 06/01/25 08:28 Blood Pressure 186/63 H 06/01/25 08:28 Pulse Oximetry 96 06/01/25 08:28 Oxygen Delivery Method Room Air 06/01/25 08:28 Temperature 96.9 F 06/01/25 08:28 Pulse Rate 104 H 06/01/25 08:28 Respiratory Rate 16 06/01/25 08:28 Blood Pressure 186/63 H 06/01/25 08:28 Pulse Oximetry 96 06/01/25 08:28 Oxygen Delivery Method Room Air 06/01/25 08:28 Airway Mallampati Class: II TM Dist: >3cm Neck ROM: Full Denture: Upper Heart: S1S2 Lungs: Diminished breath sounds bilaterally Assessment and Plan Assessment Anesthesia Assessment: Anesthesia Plan Discussed and Chart Reviewed Final Anesthetic Review Family History of Problems with Anesthesia: No History of Problems with Anesthesia: No NPO: Yes ASA Class: III Final Preanesthetic Review: No Changes in Pt Med Stat, Meds/Allgs Chart Reviewed, Consent Obtained/Reviewed and Anes Risks/Benef Reviewed Patient Risk: Intermediate Procedure Risk: Low Anesthetic Plan Anesthetic Plan: MAC: and Agree w/ Assess. and Plan Disposition: Standard PACU
[2025-06-01 09:25] VITALS: BP 158/58; PULSE 90; RESP 12; TEMP 36.1; O2SAT 97
[2025-06-01 09:40] VITALS: BP 173/59; PULSE 86; RESP 18; TEMP 36.3; O2SAT 98
--- NOTE | 2025-06-01 17:28 | OP_ITS ---
DATE OF SERVICE: 06/01/2025 SURGEON: Rene Orr MD INDICATIONS: Neoplasm of uncertain behavior PREOPERATIVE DIAGNOSIS: POSTOPERATIVE DIAGNOSIS: PROCEDURE PERFORMED: Colonoscopy to the terminal ileum with biopsy. ESTIMATED BLOOD LOSS: COMPLICATIONS: ANESTHESIA: Monitored anesthesia care. ASSISTANTS: SPECIMENS: DESCRIPTION OF PROCEDURE: History and physical was performed. The risks and benefits of the procedure were explained to the patient. Informed consent was obtained. The patient was placed in the left lateral decubitus position. A digital rectal exam was performed and was found to be normal. The Olympus pediatric video colonoscope was introduced into the rectum and advanced to the cecum. The cecum was identified by transillumination, palpation, and identification of the ileocecal valve. Examination was performed. The scope was removed. She tolerated the procedure well and was returned to the recovery room in stable condition. FINDINGS: The terminal ileum was examined and appeared normal. No appendiceal orifice could be identified because of the patient's prior history. There was some liquid stool. Colonic mucosa and cecum were identified during examination. There was no evidence of recurrent tumor. There was a small polyp measuring approximately 5 mm, which was removed with biopsy forceps located at 80 cm from the anal verge. No other polyps were identified. Retroflexed examination showed some small internal hemorrhoids. IMPRESSION: Colon polyps. RECOMMENDATION: Follow up the biopsy results. MD BEV Hayden/SERJIO / [id number] MTDD
== END 2025-06-01 10:18 | disposition home or self-care (01) ==
PROVIDERS: PCP Pediatrics; Visit Provider Internal Medicine Gastroenterology
PROC: 0DJD8ZZ Inspection of Lower Intestinal Tract, Via Natural or Artificial Opening Endoscopic (ICD-10-PCS; CPT 45378; principal; 2025-06-01 07:30)
DX: Z12.11 Encounter for screening for malignant neoplasm of colon (principal); D12.4 Benign neoplasm of descending colon; Z86.018 Personal history of other benign neoplasm; D37.3 Neoplasm of uncertain behavior of appendix; K64.8 Other hemorrhoids; K21.9 Gastro-esophageal reflux disease without esophagitis; E11.9 Type 2 diabetes mellitus without complications; I10 Essential (primary) hypertension; E78.5 Hyperlipidemia, unspecified; R25.1 Tremor, unspecified; J44.9 Chronic obstructive pulmonary disease, unspecified; Z79.4 Long term (current) use of insulin; Z79.82 Long term (current) use of aspirin; Z79.51 Long term (current) use of inhaled steroids; Z79.899 Other long term (current) drug therapy; Z88.1 Allergy status to other antibiotic agents; Z88.8 Allergy status to other drugs, medicaments and biological substances; Z90.49 Acquired absence of other specified parts of digestive tract; Z98.890 Other specified postprocedural states; F17.210 Nicotine dependence, cigarettes, uncomplicated
CPT/HCPCS: 45380; 88305; J2003; J2704